=== PATIENT | male | born 1975 | race Caucasian/White ===

== ENCOUNTER 2018-07-19 08:39 | Emergency (ER) | payer MEDICAID, SELFPAY ==
[2018-07-19 08:47] VITALS: BP 135/83; PULSE 54; RESP 20; TEMP 36.8; O2SAT 96
--- NOTE | 2018-07-19 09:15 | ED.GENADUL_ITS ---
Discharge Plan Disposition Patient Disposition: HOME Condition: Stable Discharge Details Chief Complaint: Nk/Back Pain Clinical Impression: Lumbar strain Primary Care Provider: NONE,NONE ED Provider: Joss Michel Home Meds and New Rx's Prescriptions: New cyclobenzaprine 10 mg tablet 10 mg PO TID PRN (Reason: muscle spasm) Qty: 14 RF: 0 ibuprofen [IBU] 600 mg tablet 600 mg PO QID PRN (Reason: pain) Qty: 14 RF: 0 acetaminophen 500 mg capsule 500 mg PO Q6H PRN (Reason: pain) Qty: 14 RF: 0 Continue methadone 10 MG/ML concentrate 70 mg PO DAILY RF: 0 Discharge Instructions Instructions: Low Back Strain (ED) Additional Instructions: Please do not take any further ibuprofen until after 5 PM this evening due to injection he received in the emergency department. After that point you may take acetaminophen and ibuprofen together every 6 hours and to use the Flexeril/ cyclobenzaprine every 8 hours as needed for muscle spasms. While on the muscle relaxant please cautious with any driving or operating heavy machinery. Return immediately to the emergency department for any new or significant worsening of symptoms otherwise we will attempt to assist you and establishment of a primary care provider. Stand Alone Forms: Work Release Referrals: Primary Care Provider [Outside] Medical Decision Making Patient presenting to the emergency department for complaint of low back pain mainly on the right side. 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 He states it is fairly constant but has waves of more intensity. He states that movement worsens his discomfort. 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 He denies any IV drug use, fever chills, saddle anesthesia, changes in bowel or bladder function. Physical exam is positive for lower lumbar tenderness and some soft tissue and buttock tenderness otherwise benign exam with normal neurological function and reflexes. Given that back pain was exacerbated by manual labor any strenuous situation, and no obvious trauma, I do not feel that any radiological imaging is needed. Patient given IM ketorolac, acetaminophen, lidocaine patch. Patient prescribed Flexeril for home use along with ibuprofen. Patient states that he does not have a primary care provider so he was placed on care management list to help arrange primary care to follow-up with as needed in 2-4 weeks if not improved. HPI General Mode of arrival: ambulatory . Date/Time Provider Initiated Documentation: 07/19/18 09:03 . Limitations to Documentation: no limitations . Information obtained by: patient and RN notes reviewed . History of Present Illness 42 year old M presents to the emergency department with the chief complaint of back pain, described as moderate, with intensity rated at 7. Quality is described as aching and sharp, and is localized to the back. Patient started experiencing this day(s) (3) and it has been constant. No relieving factors improve symptom(s), Movement worsens symptoms . Patient notes no other symptoms.. Patient did receive the following treatments prior to arrival, NSAID Related Data Home Medications Medication Instructions Recorded Confirmed methadone 70 mg PO DAILY 08/20/17 07/19/18 acetaminophen 500 mg PO Q6H PRN #14 cap 07/19/18 cyclobenzaprine 10 mg PO TID PRN #14 tab 07/19/18 ibuprofen [IBU] 600 mg PO QID PRN #14 tab 07/19/18 Previous Rx's Medication Instructions Recorded acetaminophen 500 mg PO Q6H PRN #14 cap 07/19/18 cyclobenzaprine 10 mg PO TID PRN #14 tab 07/19/18 ibuprofen [IBU] 600 mg PO QID PRN #14 tab 07/19/18 Allergies Allergy/AdvReac Type Severity Reaction Status Date / Time No Known Allergies Allergy Unverified 07/19/18 08:50 General Stated Complaint: Nk/Back Pain DON: 3 Review of Systems Constitutional Denies chills and Denies fever(s) Cardiovascular Denies chest pain and Denies dyspnea on exertion Respiratory Denies dyspnea on exertion Gastrointestinal Denies abdominal pain, Denies change in bowel habits and Denies diarrhea Genitourinary Denies difficulty urinating and Denies urinary incontinence Musculoskeletal Reports as per HPI and Reports back pain Neurologic Denies sensory deficit PFSH Social History Smoking/Tobacco Use Status: Current every day Exam Const General: cooperative and no acute distress Orientation: alert, awake and oriented x3 Neck Neck: normal visual inspection and full ROM Resp Effort & Inspection: normal respiratory effort Auscultation: clear to auscultation bilaterally Cardio Rate: regular rate Rhythm: regular rhythm Back/Spine/Pelvis Thoracic/Lumbar Spine: pain with thoraco-lumbar ROM, thoraco-lumbar ROM limited , lumbar spinal tenderness and No straight leg raise positive Pelvis: no pain with anterior-posterior compression, no pain with lateral compression, buttock tenderness on the right and sciatic notch tenderness on the right Neuro General: alert, awake and oriented x3 DTR's: Rt Patellar: 2+, Lt Patellar: 2+, Rt Ankle: 2+ and Lt Ankle: 2+ Extrem General: full ROM and normal capillary refill Course Vital Signs Temperature 36.8 C 07/19/18 08:47 Pulse 54 L 07/19/18 08:47 Respiratory Rate 20 07/19/18 08:47 Blood Pressure 135/83 07/19/18 08:47 Pulse Oximetry 96 07/19/18 08:47 Temperature 36.8 C 07/19/18 08:47 Temperature Source Temporal Artery Scan 07/19/18 08:47 Pulse 54 L 07/19/18 08:47 Respiratory Rate 20 07/19/18 08:47 Respiratory Effort Non-Labored 07/19/18 08:47 Blood Pressure 135/83 07/19/18 08:47 Pulse Oximetry 96 07/19/18 08:47 Oxygen Delivery Method Room Air 07/19/18 08:47 Oxygen Flow Rate 0 07/19/18 08:47 Pain Level 7 07/19/18 08:50
[2018-07-19] MEDS: Acetaminophen 500 MG TAB 1000 MG PO (09:30)
[2018-07-19] MEDS: Lidocaine 5% Patch 1 PATCH TP (09:30)
[2018-07-19] MEDS: Ketorolac 60 MG/2 ML VIAL IM (09:30)
[2018-07-19 09:46] VITALS: BP 135/83; PULSE 54; RESP 20; TEMP 36.8; O2SAT 96
== END 2018-07-19 09:39 | disposition home or self-care (01) ==
PROVIDERS: Emergency Provider Nurse Practitioner Family
DX: S39.012A Strain of muscle, fascia and tendon of lower back, initial encounter (principal); X50.0XXA Overexertion from strenuous movement or load, initial encounter
CPT/HCPCS: 96372; 99284; J1885

== ENCOUNTER 2018-09-20 16:34 | Inpatient (IN) | payer MEDICAID, SELFPAY ==
[2018-09-20] VITALS (96 sets, daily range): BP systolic 79–196; BP diastolic 40–155; PULSE 49–120; RESP 0–33; TEMP 36–36.7; O2SAT 91–100
--- NOTE | 2018-09-20 17:31 | DI.RAD_ITS ---
SYMPTOMS/DIAGNOSIS: S/P INTUBATION PORTABLE AP CHEST: No priors. The heart size and pulmonary vasculature are within normal limits. The lungs are clear and well expanded. No effusions or pneumothoraces are identified. The bones are intact. There is an endotracheal tube. The tip is 3 cm above the sunita. IMPRESSION: 1. No acute pulmonary process. 2. Well positioned endotracheal tube.
--- NOTE | 2018-09-20 17:33 | DI.CT_ITS ---
SYMPTOMS/DIAGNOSIS: ALTERED CT BRAIN: Noncontrast examination was performed. There is a normal dahl/white matter differentiation. No acute infarct, hemorrhage, midline shift or mass effect is identified. The ventricles are intact. The basilar cisterns are patent. There is mild mucosal thickening in the maxillary sinuses and the ethmoid air cells. No fluid levels are seen. The mastoid air cells are well pneumatized. The calvarium is intact. IMPRESSION: No acute intracranial process.
[2018-09-20 17:54] LABS: BE (Venous) 3.4 mmol/L (-3-3); HCO3 (Venous) 29 mmol/L (22-28); O2 Sat (Venous) 69 % (70-80); TCO2 (Venous) 26 mmol/L (22-29); pCO2 (Venous) 54 mm/Hg (34-47); pH (Venous) 7.34 (7.32-7.43); pO2 (Venous) 38 mm/Hg (28-44)
[2018-09-20 17:58] LABS: Bilirubin Negative (Negative); Blood Negative (Negative); Clarity Clear; Glucose Negative (Negative); Ketones Negative (Negative); Leukocyte Esterase Negative (Negative); Nitrite Negative (Negative); Urobilinogen 0.2 EU/dL (Up TO 0.2)
[2018-09-20 18:01] LABS: Abs Immature Grans 0.02 k/cumm (0.0-0.09); Absolute Basophil Count 0.03 k/cumm (0.0-0.2); Absolute Eosinophil Count 0.04 k/cumm (0.0-0.7); Absolute Monocyte Count 0.47 k/cumm (0.11-0.7); Absolute Neutrophil Count 8.29 k/cumm (1.2-6.7); Basophils % 0.2; Eosinophils % 0.3; HCT 42.1 % (40.0-50.0); HGB 15.1 g/dL (13.5-17.5); Immature Grans % 0.2; Lymphocytes % 30.3; Mean Corp. HGB Concentration 35.9 g/dL (32.0-36.0); Mean Corpuscular Hemoglobin 34.3 pg (27.0-33.0); Mean Corpuscular Volume 95.7 fL (80-95); Mean Platelet Volume 9.1 fL (8.0-11.0); Monocytes % 3.7; Neutrophils % 65.3; Platelet Count 254 x1000/uL (130-400); RBC Distribution Width 12.5 % (11.8-14.1); White Blood Cell Count 12.69 k/cumm (4.4-10.8)
[2018-09-20 18:02] LABS: Absolute Lymphocyte Count 3.85 k/cumm (1.2-3.4)
--- NOTE | 2018-09-20 18:05 | DI.VRAD_ITS ---
EXAM: XR Chest, 1 View EXAM DATE/TIME: 09/20/2018 5:32 PM CLINICAL HISTORY: 42 years old, male; Signs and symptoms; Other: S/P intubation TECHNIQUE: XR of the chest, 1 view. COMPARISON: No relevant prior studies available. FINDINGS: Tubes, catheters and devices: Endotracheal tube tip terminates approximately 3 cm from the sunita. Lungs: Unremarkable. No consolidation. Pleural space: Unremarkable. No pleural effusion. No pneumothorax. Heart/Mediastinum: Unremarkable. No cardiomegaly. Bones/joints: Unremarkable. IMPRESSION: 1. Endotracheal tube appears well-positioned. 2. No acute finding. Dictated and Authenticated by: Hamlet Bishop MD. Ordering:AARTI Lynch MD
[2018-09-20 18:10] LABS: INR 0.9 (0.9-1.1); Prothrombin Time 9.3 sec (9.3-11.0)
[2018-09-20] MEDS: Midazolam 2 MG/2 ML VIAL 5 MG IVP (18:15)
[2018-09-20] MEDS: PROPOFOL 1,000 MG/100 ML BTL 7.7 MG (18:21)
--- NOTE | 2018-09-20 18:30 | DI.VRAD_ITS ---
EXAM: CT Head Without Contrast EXAM DATE/TIME: 09/20/2018 5:34 PM CLINICAL HISTORY: 42 years old, male; Signs and symptoms; Other: Altered TECHNIQUE: Axial computed tomography images of the head/brain without contrast. All CT scans at this facility use at least one of these dose optimization techniques: automated exposure control; mA and/or kV adjustment per patient size (includes targeted exams where dose is matched to clinical indication); or iterative reconstruction. Coronal and sagittal reformatted images were created and reviewed. COMPARISON: No relevant prior studies available. FINDINGS: Brain: Normal. No hemorrhage. No significant white matter disease. No edema. Ventricles: Normal. No ventriculomegaly. Bones/joints: Normal. No acute fracture. Sinuses: Minimal mucosal thickening low ethmoid and maxillary sinuses. Remaining paranasal sinuses are clear. Mastoid air cells: Normal as visualized. No mastoid effusion. Soft tissues: Normal. IMPRESSION: No acute intracranial findings. Dictated and Authenticated by: Hamlet Bishop MD. Ordering:AARTI Lynch MD
[2018-09-20 18:31] LABS: ALT 21 U/L (12-78); AST 24 U/L (15-37); Alkaline Phosphatase 80 U/L (46-116); Anion Gap 11.2 mmol/L (3-11); BUN 14 mg/dL (7-18); Bilirubin, Total 0.2 mg/dL (0.2-1.0); CO2 29.8 mmol/L (21.0-32.0); CREATININE 1.13 mg/dL (0.70-1.30); Calcium 9.1 mg/dL (8.5-10.1); Chloride 100 mmol/L (98-107); ETHANOL BLOOD 236.1 mg/dL (<3); Glucose 80 mg/dL (70-100); Potassium 3.6 mmol/L (3.5-5.1); Sodium 141 mmol/L (136-145); TSH (W/Ref FT4) 1.96 uIU/mL (0.358-3.74); Total Protein 8.3 g/dL (6.4-8.2)
[2018-09-20 18:37] LABS: *AMPHETAMINES SCREEN URINE Negative (Negative); *BARBITURATES SCREEN URINE Negative (Negative); *BENZODIAZEPINES SCREEN URINE Negative (Negative); Cannabinoids THC POSITIVE (Negative); Cocaine Screen,Urine Negative (Negative); METHADONE URINE SCREEN POSITIVE (Negative); OPIATES URINE SCREEN POSITIVE (Negative)
[2018-09-20 18:40] LABS: Tricyclic Antidepressants Negative (Negative)
[2018-09-20 18:52] LABS: Salicylate 8.1 mg/dL (2.8-20.0)
[2018-09-20 18:53] LABS: Acetaminophen < 2 ug/mL (10-30)
[2018-09-20] MEDS: PROPOFOL 1,000 MG/100 ML BTL 3.84 MG IVPB (19:00)
[2018-09-20] MEDS: Ketamine 500 MG/10 ML VIAL 100 MG IVP (19:00)
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
[2018-09-20] MEDS: Normal Saline 1,000 ML 1000 ML IV (19:21)
[2018-09-20] MEDS: MIDAZOLAM 50 MG in Normal Saline 90 ML IV (19:21)
--- NOTE | 2018-09-20 19:27 | NUR.NOTE ---
Nursing Note: 1815 pt given versed 5 mg iv per doctor rachel verbal order after iv started
--- NOTE | 2018-09-20 19:29 | HPE_ITS ---
Date of service: 09/20/18 Time of Service: 19:18 Assessment and Plan (1) OD (overdose of drug): Current visit: Yes Status: Acute Presumed drug overdose although it should be noted there was no actual witness to an ingestion. Will maintain on ventilator for airway protection overnight. Otherwise will maintain on IV fluids and telemetry and reassess status in the morning History of Present Illness Chief Complaint: drug OD Narrative: Patient is a 42-year-old male with history of drug abuse on methadone. His brother reports that the patient went to the [facility] today and came home with a plastic bottle full of a variety of medications he told his brother that he found this on the floor. At any rate the brother left to do an errand and when he came home he found the patient unresponsive with a variety of pills spilled about him and several shallow lacerations on his torso. He was brought to the emergency room where he was variably agitated or unresponsive and intubated for airway protection. He is admitted for further management Past medical history: Drug abuse Allergies none Medications methadone 70 daily Physical exam: Most recent recorded blood pressure 162/117, at the time of my exam blood pressure 126/70. Pulse 85 temp 36.7 respirations on ventilator at 16. HEENT there are no signs of head trauma, pupils are pinpoint. Supple lungs show diffuse rhonchi heart is regular rate and rhythm, sounds obscured by respirations. Abdomen is positive bowel sounds soft and nontender extremities without edema there are superficial lacerations on the order of 3-4cm on the left upper extremity Laboratory: White count is 12.6 hematocrit 42 platelet 254 sodium 141 potassium 3.6 chloride 100 bicarb 29 BUN 14 creatinine 1.1 glucose 80 calcium 9.1 urine drug screen positive for opiates and methadone and THC. Alcohol level 236. EKG within normal limits chest x-ray is clear and shows endotracheal tube in place [facility] Social History Smoking/Tobacco Use Status: Current every day Meds Home Medications Medication Instructions Recorded Confirmed Type methadone 70 mg PO DAILY 08/20/17 07/19/18 History acetaminophen 500 mg PO Q6H PRN #14 cap 07/19/18 Rx cyclobenzaprine 10 mg PO TID PRN #14 tab 07/19/18 Rx ibuprofen [IBU] 600 mg PO QID PRN #14 tab 07/19/18 Rx Allergies Allergy/AdvReac Type Severity Reaction Status Date / Time No Known Allergies Allergy Unverified 07/19/18 08:50 Results Labs : 09/20/18 17:35 09/20/18 17:35 Laboratory Results - last 24 hr 09/20/18 09/20/18 09/20/18 17:35 17:35 17:35 WBC 12.69 H RBC 4.40 L Hgb 15.1 Hct 42.1 MCV 95.7 H MCH 34.3 H MCHC 35.9 RDW 12.5 Plt Count 254 MPV 9.1 Immature Gran % 0.2 Neutrophils % 65.3 Lymphocytes % 30.3 Monocytes % 3.7 Eosinophils % 0.3 Basophils % 0.2 Absolute Neutrophils 8.29 H Absolute Lymphocytes 3.85 H Absolute Monocytes 0.47 Absolute Eosinophils 0.04 Absolute Basophils 0.03 PT INR APTT VBG pH VBG pCO2 VBG pO2 VBG HCO3 VBG Total CO2 VBG O2 Saturation VBG Base Excess Sodium 141 Potassium 3.6 Chloride 100 Carbon Dioxide 29.8 Anion Gap 11.2 H BUN 14 Creatinine 1.13 Estimated GFR/1.73 m2 >= 60.00 Glucose 80 Calcium 9.1 Total Bilirubin 0.2 AST 24 ALT 21 Alkaline Phosphatase 80 Total Protein 8.3 H Albumin 4.0 TSH 1.96 Urine Color Urine Clarity Urine pH Ur Specific [place] Urine Protein Urine Ketones Urine Blood Urine Nitrite Urine Bilirubin Urine Urobilinogen Ur Leukocyte Esterase Urine Glucose Salicylates 8.1 Urine Opiates Screen Urine Methadone Screen Acetaminophen < 2 L Ur Barbiturates Screen Ur Tricyclics Screen Ur Amphetamines Screen U Benzodiazepines Scrn Urine Cocaine Screen Ur THC Screen Ethyl Alcohol 236.1 09/20/18 09/20/18 09/20/18 17:35 17:35 17:35 WBC RBC Hgb Hct MCV MCH MCHC RDW Plt Count MPV Immature Gran % Neutrophils % Lymphocytes % Monocytes % Eosinophils % Basophils % Absolute Neutrophils Absolute Lymphocytes Absolute Monocytes Absolute Eosinophils Absolute Basophils PT 9.3 INR 0.9 APTT 25.0 VBG pH 7.34 VBG pCO2 54 H VBG pO2 38 VBG HCO3 29 H VBG Total CO2 26 VBG O2 Saturation 69 L VBG Base Excess 3.4 H Sodium Potassium Chloride Carbon Dioxide Anion Gap BUN Creatinine Estimated GFR/1.73 m2 Glucose Calcium Total Bilirubin AST ALT Alkaline Phosphatase Total Protein Albumin TSH Urine Color Urine Clarity Urine pH Ur Specific [place] Urine Protein Urine Ketones Urine Blood Urine Nitrite Urine Bilirubin Urine Urobilinogen Ur Leukocyte Esterase Urine Glucose Salicylates Urine Opiates Screen Positive Urine Methadone Screen Positive Acetaminophen Ur Barbiturates Screen Negative Ur Tricyclics Screen Negative Ur Amphetamines Screen Negative U Benzodiazepines Scrn Negative Urine Cocaine Screen Negative Ur THC Screen Positive Ethyl Alcohol 09/20/18 17:35 WBC RBC Hgb Hct MCV MCH MCHC RDW Plt Count MPV Immature Gran % Neutrophils % Lymphocytes % Monocytes % Eosinophils % Basophils % Absolute Neutrophils Absolute Lymphocytes Absolute Monocytes Absolute Eosinophils Absolute Basophils PT INR APTT VBG pH VBG pCO2 VBG pO2 VBG HCO3 VBG Total CO2 VBG O2 Saturation VBG Base Excess Sodium Potassium Chloride Carbon Dioxide Anion Gap BUN Creatinine Estimated GFR/1.73 m2 Glucose Calcium Total Bilirubin AST ALT Alkaline Phosphatase Total Protein Albumin TSH Urine Color Yellow Urine Clarity Clear Urine pH 7.0 Ur Specific [place] 1.010 Urine Protein Negative Urine Ketones Negative Urine Blood Negative Urine Nitrite Negative Urine Bilirubin Negative Urine Urobilinogen 0.2 Ur Leukocyte Esterase Negative Urine Glucose Negative Salicylates Urine Opiates Screen Urine Methadone Screen Acetaminophen Ur Barbiturates Screen Ur Tricyclics Screen Ur Amphetamines Screen U Benzodiazepines Scrn Urine Cocaine Screen Ur THC Screen Ethyl Alcohol Last Vital Signs Temp 36.7 C 09/20/18 16:35 Pulse 85 09/20/18 17:59 Resp 16 09/20/18 17:59 BP 162/117 H 09/20/18 17:59 Pulse Ox 100 09/20/18 17:45
[2018-09-20 19:36] LABS: HCO3 21 mmol/L (22-28); pCO2 44 mmHg (34-47); pH 7.29 (7.35-7.45); pO2 111 mmHg (83-108); sO2 97 % (94-98); tCO2 19 mmol/L (22-29)
--- NOTE | 2018-09-20 20:11 | NUR.NOTE ---
Nursing Note: patient 4 point restraints removed at 191 when arrived as patient was close to full sedation after ketamine. replaced to soft bilateral wrist restraints for tube placement as patient sedation is now RASS -2 with propofol and versed. --Reginald STEINER. 2011.
--- NOTE | 2018-09-20 22:45 | ED.GENADUL_ITS ---
Discharge Plan Disposition Patient Disposition: [facility] INPATIENT Condition: Stable Discharge Details Chief Complaint: OD/Poison Clinical Impression: OD (overdose of drug), ETOH abuse, Suicide attempt, Methadone use, Acute alteration in mental status, Combative behavior, Respiratory failure, Injury, self-inflicted Reason For Visit: DRUG OD Admit Date/Time: 09/20/18 19:30 Admit Provider: Sergey Hernandez Attending Provider: Sergey Hernandez Primary Care Provider: Radha Villalpando ED Provider: Syed Fallon Discharge Data Discharge Date/Time-TO BE ENTERED AT DEPARTURE: 09/20/18 21:05 Medical Decision Making This is a 42-year-old Montene[place] man who presents for overdose of unknown substances. Patient took an unknown amount of unknown pills. He was found face down at home but arousable. He was brought here by family. His mental status alternates between combative, assaulting staff, and trying to run out of the bed in the room, followed by total obtundation with notable apnea. He has 3 superficial abrasions that are self-inflicted. He has been complaining of notable depression over the last few weeks, and family is concerned that this was a malicious attempt of self-harm. We initially tried to calm the patient wi th family, this was unsuccessful. We did place the patient in four-point restraints for patient safety over he continued to flail about, followed by having prolonged episodes of apnea in between. We are unable to get an IV secondary to the patient's flailing. With the patient's continued apnea, danger to self and others, and severe altered mental status and need for IV access for draw for toxic evaluation, as well as need for CT imaging of his head to rule out acute process we did elect to intubate the patient emergently. Patient tolerated intubation well with no complications. Medications were given IM. After this an IV was placed. Laboratory workup has returned there is no significant abnormality. He does have an elevated white count, ABG demonstrates a mild metabolic acidosis, no anion gap, creatinine and electrolytes are within normal limits. No transaminitis. Normal TSH. Urine drug screen is positive for THC, as well as methadone and his opiates. Ethanol alcohol is elevated at 236. CT scan of the head is negative for acute process. Chest x-ray demonstrates a well-placed endotracheal tube. Patient's EKG demonstrates no evidence of QT prolongation, QRS prolongation or other abnormality. I feel the patient's symptoms most likely secondary to a combination of sedative hypnotic ingestion, alcohol use, and potentially opiate component. With no signs or symptoms suggestive of serotonin syndrome, hyperthermic malignant syndrome, or neuroleptic malignant syndrome. The patient is hemodynamically stable at this time on propofol and Versed. I discussed the case with Dr. Hernandez, he agrees with assessment and plan. The patient will be admitted to the ICU for further management. I have extensively reviewed the treatment plan with the patient. I have addressed all patient concerns at this time. I have also discussed the plan with the admitting physician and they agree with the current assessment and plan and have agreed to assume responsibility for the patient. All parties demonstrate verbal understanding and agreement with our assessment and plan at this time. Upon my evaluation, this patient had a high probability of imminent or life- threatening deterioration, which required my direct attention, intervention, and personal management. I have personally provided 45 minutes of critical care time exclusive of time spent on separately billable procedures. Time includes review of laboratory data, radiology results, discussion with consultants, and monitoring for potential decompensation. Interventions were performed as documented above. Procedure: Endotracheal Intubation Indication: Respiratory Distress A time-out was completed verifying correct patient, procedure, site, positioning, and special equipment if applicable. The patient was placed in a flat position. Sedation was obtained using Etomidate 20mg and paralysis was obtained using Rocuronium 100mg. The patient was easily ventilated using an ambu bag. The [employer] was used and inserted into the oropharynx at which time there was a Grade 1 view of the vocal cords. A 7.5-anguillan endotracheal tube was inserted and visualized going through the vocal cords. The stylette was removed. Colorimetric change was visualized on the CO2 meter. Breath sounds were heard in both lung haney equally. The endotracheal tube was placed at 23 cm, measured at the teeth. A chest x-ray was ordered to assess for pneumothorax and verify endotrachealtube placement. No pneumothorax was seen and tube was in good position. The patient tolerated the procedure well and there were no complications. EKG 16: 48 Rate 65, intervals normal, sinus rhythm, no significant ST elevations or depressions, no T wave inversions, small Q wave in lead III. No other abnormalities. COMPARISON: No relevant prior studies available. FINDINGS: Brain: Normal. No hemorrhage. No significant white matter disease. No edema. Ventricles: Normal. No ventriculomegaly. Bones/joints: Normal. No acute fracture. Sinuses: Minimal mucosal thickening low ethmoid and maxillary sinuses. Remaining paranasal sinuses are clear. Mastoid air cells: Normal as visualized. No mastoid effusion. Soft tissues: Normal. IMPRESSION: No acute intracranial findings. Dictated and Authenticated by: Hamlet Bishop MD. HPI General Date/Time Provider Initiated Documentation: 09/20/18 16:42 . HPI Narrative: This is a 42-year-old Montene[place] man with a past medical history of methadone use, hepatitis C, and depression who presents today for evaluation of overdose. Family and friends were at bedside state that over the last few weeks he has been notably depressed, felt like the world was caving in around him, and had been making comments about ending things. Today he was found by family to be face down on the ground with some random pills next to him. There was an empty black pill bottle, which was not 1 of his regular prescriptions. Patient was slightly arousable with vigorous stimulation, however his mental status was altered. He was brought into the ER for further evaluation. Here in the emergency department the patient had oscillate between fiery and combative to totally obtunded and apneic. Patient has no complaints. He does demonstrate superficial lacerations over his skin, he is unable to answer any of our questions at this time. No other modifying factors. No other known history. Related Data Home Medications Medication Instructions Recorded Confirmed methadone 70 mg PO DAILY 08/20/17 07/19/18 acetaminophen 500 mg PO Q6H PRN #14 cap 07/19/18 cyclobenzaprine 10 mg PO TID PRN #14 tab 07/19/18 ibuprofen [IBU] 600 mg PO QID PRN #14 tab 07/19/18 Previous Rx's Medication Instructions Recorded acetaminophen 500 mg PO Q6H PRN #14 cap 07/19/18 cyclobenzaprine 10 mg PO TID PRN #14 tab 07/19/18 ibuprofen [IBU] 600 mg PO QID PRN #14 tab 07/19/18 Allergies Allergy/AdvReac Type Severity Reaction Status Date / Time No Known Allergies Allergy Unverified 07/19/18 08:50 General Stated Complaint: OD/Poison DON: 1 Review of Systems Review of Systems Unobtainable due to mental condition [facility] Social History Smoking/Tobacco Use Status: Current every day Exam Narrative Exam Narrative: 1.Const: Well-nourished, Well-developed, appearing stated age 2.Eyes: Pupils are roughly 3-4 mm, restricted, slightly react, no conjunctival injection, and symmetrical lids. 3.ENT: Atraumatic external nose and ears. Moist MM. Neck: Symmetric, trachea midline, No thyromegaly. 4.CVS: +S1/S2, No murmurs or gallops. Peripheral pulses 2+ and equal in all extremities. Brisk capillary refill in all extremities. 5.RESP: Unlabored respiratory effort. Clear to auscultation bilaterally. No wheezes rales or rhonchi 6.GI: Soft, Nontender/Nondistended, No hepatosplenomegaly. No guarding or rebound. 7.MSK: Normocephalic/Atraumatic, Extremities w/o deformity or ttp No cyanosis or clubbing, Normal movement of all extremities. No clonus, no lead pipe rigidity, no hyperreflexia. 8.Skin: Warm, Dry. 3 superficial abrasions are present, one on his left anterior chest, one on his left shoulder, and one on his left arm. All are linear, superficial, with no evidence of deep tissue involvement. The superficial abrasion is roughly 6 cm in length. 9.Neuro: civil rights representative II-XII grossly intact. Sensation grossly intact, when the patient is awake and alert he is actively looking around in a panic-like fashion, moving all extremities, showing no focal deficits. No evidence of clonus, hyperreflexia, or other neurologic abnormality. When the patient does settle down, he remains arousable with vigorous stimulation however he has total episodes of apnea, with a drop in his oxygenation to the 80s. 10.Psych: Notably altered, unable to answer any questions. When he is mentally active he is flailing about, difficult to control, swinging wildly at nursing staff and family. Multiple attempts are noted of him slamming into the male nursing staff on initial arrival, trying to run out of the room, throwing and moving things about it a very violent and dangerous fashion. Course Vital Signs Temperature 36.7 C 09/20/18 16:35 Temperature 36.7 C 09/20/18 16:35 Temperature Source Skin 09/20/18 16:35 Pulse 51 L 09/20/18 20:50 Pulse 50 L 09/20/18 20:51 Respiratory Rate 14 09/20/18 22:03 Blood Pressure 88/51 L 09/20/18 20:50 Blood Pressure Mean 59 09/20/18 20:50 Pulse Oximetry 100 09/20/18 22:03 Respiratory End-tidal CO2 15 09/20/18 22:03 Fraction of Inspired Oxygen (FIO2) 21 09/20/18 22:03 Lab/Test Results Lab/Test Results: Laboratory Tests Range/Units 09/20/18 09/20/18 09/20/18 17:25 17:35 17:35 WBC (4.4-10.8) k/cumm RBC (4.50-6.00) m/cumm Hgb (13.5-17.5) g/dL Hct (40.0-50.0) % MCV (80-95) fL MCH (27.0-33.0) pg MCHC (32.0-36.0) g/dL RDW (11.8-14.1) % Plt Count (130-400) x1000/uL MPV (8.0-11.0) fL Immature Gran % Neutrophils % Lymphocytes % Monocytes % Eosinophils % Basophils % Absolute Neutrophils (1.2-6.7) k/cumm Absolute Lymphocytes (1.2-3.4) k/cumm Absolute Monocytes (0.11-0.7) k/cumm Absolute Eosinophils (0.0-0.7) k/cumm Absolute Basophils (0.0-0.2) k/cumm PT (9.3-11.0) sec INR (0.9-1.1) APTT (21.0-31.4) sec pCO2 (34-47) mmHg 44 pO2 (83-108) mmHg 111 H O2 Saturation (94-98) % 97 ABG pH (7.35-7.45) 7.29 L ABG HCO3 (22-28) mmol/L 21 L ABG Total CO2 (22-29) mmol/L 19 L ABG Base Excess (-3-3) mmol/L < -4.0 L VBG pH (7.32-7.43) VBG pCO2 (34-47) mm/Hg VBG pO2 (28-44) mm/Hg VBG HCO3 (22-28) mmol/L VBG Total CO2 (22-29) mmol/L VBG O2 Saturation (70-80) % VBG Base Excess (-3-3) mmol/L Sodium (136-145) mmol/L 141 Potassium (3.5-5.1) mmol/L 3.6 Chloride (98-107) mmol/L 100 Carbon Dioxide (21.0-32.0) mmol/L 29.8 Anion Gap (3-11) mmol/L 11.2 H BUN (7-18) mg/dL 14 Creatinine (0.70-1.30) mg/dL 1.13 Estimated GFR/1.73 m2 (mL/min/1.73m2) >= 60.00 Glucose (70-100) mg/dL 80 Calcium (8.5-10.1) mg/dL 9.1 Total Bilirubin (0.2-1.0) mg/dL 0.2 AST (15-37) U/L 24 ALT (12-78) U/L 21 Alkaline Phosphatase (46-116) U/L 80 Total Protein (6.4-8.2) g/dL 8.3 H Albumin (3.4-5.0) g/dL 4.0 TSH (0.358-3.74) uIU/mL 1.96 Urine Color (Yellow) Urine Clarity Urine pH (5-8) Ur Specific [place] (1.005-1.025) Urine Protein (Negative) mg/dL Urine Ketones (Negative) mg/dL Urine Blood (Negative) Urine Nitrite (Negative) Urine Bilirubin (Negative) Urine Urobilinogen (Up TO 0.2) EU/dL Ur Leukocyte Esterase (Negative) Urine Glucose (Negative) mg/dL Salicylates (2.8-20.0) mg/dL 8.1 Urine Opiates Screen (Negative) Urine Methadone Screen (Negative) Acetaminophen (10-30) ug/mL < 2 L Ur Barbiturates Screen (Negative) Ur Tricyclics Screen (Negative) Ur Amphetamines Screen (Negative) U Benzodiazepines Scrn (Negative) Urine Cocaine Screen (Negative) Ur THC Screen (Negative) Ethyl Alcohol (<3) mg/dL 236.1 Range/Units 09/20/18 09/20/18 09/20/18 17:35 17:35 17:35 WBC (4.4-10.8) k/cumm 12.69 H RBC (4.50-6.00) m/cumm 4.40 L Hgb (13.5-17.5) g/dL 15.1 Hct (40.0-50.0) % 42.1 MCV (80-95) fL 95.7 H MCH (27.0-33.0) pg 34.3 H MCHC (32.0-36.0) g/dL 35.9 RDW (11.8-14.1) % 12.5 Plt Count (130-400) x1000/uL 254 MPV (8.0-11.0) fL 9.1 Immature Gran % 0.2 Neutrophils % 65.3 Lymphocytes % 30.3 Monocytes % 3.7 Eosinophils % 0.3 Basophils % 0.2 Absolute Neutrophils (1.2-6.7) k/cumm 8.29 H Absolute Lymphocytes (1.2-3.4) k/cumm 3.85 H Absolute Monocytes (0.11-0.7) k/cumm 0.47 Absolute Eosinophils (0.0-0.7) k/cumm 0.04 Absolute Basophils (0.0-0.2) k/cumm 0.03 PT (9.3-11.0) sec 9.3 INR (0.9-1.1) 0.9 APTT (21.0-31.4) sec 25.0 pCO2 (34-47) mmHg pO2 (83-108) mmHg O2 Saturation (94-98) % ABG pH (7.35-7.45) ABG HCO3 (22-28) mmol/L ABG Total CO2 (22-29) mmol/L ABG Base Excess (-3-3) mmol/L VBG pH (7.32-7.43) 7.34 VBG pCO2 (34-47) mm/Hg 54 H VBG pO2 (28-44) mm/Hg 38 VBG HCO3 (22-28) mmol/L 29 H VBG Total CO2 (22-29) mmol/L 26 VBG O2 Saturation (70-80) % 69 L VBG Base Excess (-3-3) mmol/L 3.4 H Sodium (136-145) mmol/L Potassium (3.5-5.1) mmol/L Chloride (98-107) mmol/L Carbon Dioxide (21.0-32.0) mmol/L Anion Gap (3-11) mmol/L BUN (7-18) mg/dL Creatinine (0.70-1.30) mg/dL Estimated GFR/1.73 m2 (mL/min/1.73m2) Glucose (70-100) mg/dL Calcium (8.5-10.1) mg/dL Total Bilirubin (0.2-1.0) mg/dL AST (15-37) U/L ALT (12-78) U/L Alkaline Phosphatase (46-116) U/L Total Protein (6.4-8.2) g/dL Albumin (3.4-5.0) g/dL TSH (0.358-3.74) uIU/mL Urine Color (Yellow) Urine Clarity Urine pH (5-8) Ur Specific [place] (1.005-1.025) Urine Protein (Negative) mg/dL Urine Ketones (Negative) mg/dL Urine Blood (Negative) Urine Nitrite (Negative) Urine Bilirubin (Negative) Urine Urobilinogen (Up TO 0.2) EU/dL Ur Leukocyte Esterase (Negative) Urine Glucose (Negative) mg/dL Salicylates (2.8-20.0) mg/dL Urine Opiates Screen (Negative) Urine Methadone Screen (Negative) Acetaminophen (10-30) ug/mL Ur Barbiturates Screen (Negative) Ur Tricyclics Screen (Negative) Ur Amphetamines Screen (Negative) U Benzodiazepines Scrn (Negative) Urine Cocaine Screen (Negative) Ur THC Screen (Negative) Ethyl Alcohol (<3) mg/dL Range/Units 09/20/18 09/20/18 17:35 17:35 WBC (4.4-10.8) k/cumm RBC (4.50-6.00) m/cumm Hgb (13.5-17.5) g/dL Hct (40.0-50.0) % MCV (80-95) fL MCH (27.0-33.0) pg MCHC (32.0-36.0) g/dL RDW (11.8-14.1) % Plt Count (130-400) x1000/uL MPV (8.0-11.0) fL Immature Gran % Neutrophils % Lymphocytes % Monocytes % Eosinophils % Basophils % Absolute Neutrophils (1.2-6.7) k/cumm Absolute Lymphocytes (1.2-3.4) k/cumm Absolute Monocytes (0.11-0.7) k/cumm Absolute Eosinophils (0.0-0.7) k/cumm Absolute Basophils (0.0-0.2) k/cumm PT (9.3-11.0) sec INR (0.9-1.1) APTT (21.0-31.4) sec pCO2 (34-47) mmHg pO2 (83-108) mmHg O2 Saturation (94-98) % ABG pH (7.35-7.45) ABG HCO3 (22-28) mmol/L ABG Total CO2 (22-29) mmol/L ABG Base Excess (-3-3) mmol/L VBG pH (7.32-7.43) VBG pCO2 (34-47) mm/Hg VBG pO2 (28-44) mm/Hg VBG HCO3 (22-28) mmol/L VBG Total CO2 (22-29) mmol/L VBG O2 Saturation (70-80) % VBG Base Excess (-3-3) mmol/L Sodium (136-145) mmol/L Potassium (3.5-5.1) mmol/L Chloride (98-107) mmol/L Carbon Dioxide (21.0-32.0) mmol/L Anion Gap (3-11) mmol/L BUN (7-18) mg/dL Creatinine (0.70-1.30) mg/dL Estimated GFR/1.73 m2 (mL/min/1.73m2) Glucose (70-100) mg/dL Calcium (8.5-10.1) mg/dL Total Bilirubin (0.2-1.0) mg/dL AST (15-37) U/L ALT (12-78) U/L Alkaline Phosphatase (46-116) U/L Total Protein (6.4-8.2) g/dL Albumin (3.4-5.0) g/dL TSH (0.358-3.74) uIU/mL Urine Color (Yellow) Yellow Urine Clarity Clear Urine pH (5-8) 7.0 Ur Specific [place] (1.005-1.025) 1.010 Urine Protein (Negative) mg/dL Negative Urine Ketones (Negative) mg/dL Negative Urine Blood (Negative) Negative Urine Nitrite (Negative) Negative Urine Bilirubin (Negative) Negative Urine Urobilinogen (Up TO 0.2) EU/dL 0.2 Ur Leukocyte Esterase (Negative) Negative Urine Glucose (Negative) mg/dL Negative Salicylates (2.8-20.0) mg/dL Urine Opiates Screen (Negative) Positive Urine Methadone Screen (Negative) Positive Acetaminophen (10-30) ug/mL Ur Barbiturates Screen (Negative) Negative Ur Tricyclics Screen (Negative) Negative Ur Amphetamines Screen (Negative) Negative U Benzodiazepines Scrn (Negative) Negative Urine Cocaine Screen (Negative) Negative Ur THC Screen (Negative) Positive Ethyl Alcohol (<3) mg/dL
[2018-09-20] MEDS: PROPOFOL 1,000 MG/100 ML BTL 19.2 MG IVPB (23:54)
[2018-09-21] VITALS (172 sets, daily range): BP systolic 81–146; BP diastolic 44–99; PULSE 54–87; RESP 0–30; TEMP 36.1–37.8; O2SAT 92–100
[2018-09-21] MEDS: Lactated Ringers 1,000 ML 150 ML IV ×4 (04:00→22:49)
[2018-09-21] MEDS: PROPOFOL 1,000 MG/100 ML BTL 19.2 MG IVPB (06:19)
[2018-09-21] MEDS: MIDAZOLAM 50 MG in Normal Saline 90 ML 7.04 MG IV ×2 (07:03→22:31)
[2018-09-21 08:23] LABS: Abs Immature Grans 0.02 k/cumm (0.0-0.09); Absolute Basophil Count 0.02 k/cumm (0.0-0.2); Absolute Eosinophil Count 0.04 k/cumm (0.0-0.7); Absolute Lymphocyte Count 3.33 k/cumm (1.2-3.4); Absolute Monocyte Count 0.86 k/cumm (0.11-0.7); Basophils % 0.2; Eosinophils % 0.3; Immature Grans % 0.2; Lymphocytes % 27.1; Mean Corp. HGB Concentration 35.1 g/dL (32.0-36.0); Mean Corpuscular Hemoglobin 33.9 pg (27.0-33.0); Mean Corpuscular Volume 96.4 fL (80-95); Mean Platelet Volume 9.3 fL (8.0-11.0); Neutrophils % 65.2; Platelet Count 216 x1000/uL (130-400); RBC 3.84 m/cumm (4.50-6.00); RBC Distribution Width 12.7 % (11.8-14.1)
[2018-09-21 08:25] LABS: Absolute Neutrophil Count 8.02 k/cumm (1.2-6.7)
[2018-09-21 08:29] LABS: Anion Gap 7.8 mmol/L (3-11); BUN 14 mg/dL (7-18); CO2 27.2 mmol/L (21.0-32.0); CREATININE 0.99 mg/dL (0.70-1.30); Calcium 8.1 mg/dL (8.5-10.1); Chloride 106 mmol/L (98-107); Glucose 70 mg/dL (70-100); Magnesium 1.6 mg/dL (1.8-2.4); Potassium 3.8 mmol/L (3.5-5.1); Sodium 141 mmol/L (136-145)
--- NOTE | 2018-09-21 09:05 | PDOC.CMIN ---
- If Service Date Differs Date of service: 09/21/18 Time of Service: 09:05 Care Management Initial Assess REASON FOR HOSPITALIZATION:: Drug OD. PAST MEDICAL HISTORY/PAST SURGICAL HISTORY:: Drug abuse; methadone maintenance through [facility], depression, Hep C. CURRENT FUNCTIONAL STATUS:: Rohit is in the ICU and remains intubated at this time. His brother, Umang(?) is at the bedside and reports that Rohit lives with him in [facility]. Per MD report, Rohit is a 42-year-old [place] man who presented to the ED on 09/20 for an overdose of unknown substances.Rohit was reportedly found face down at home but was arousable. His family brought him to the ED and upon arrival at the hospital his mental status alternated between combative, assaulting staff, and trying to run out of the bed in the room, followed by total obtundation with notable apnea. Rohit has three superficial abrasions that are self-inflicted to his torso. Rohit has a bahena in place at this time. CM phoned [facility] to alert them to Rohit's presence in the ICU. ADVANCE DIRECTIVES:: None on file at [facility]. Has patient been provided with information about the portal?: Yes Did the patient sign up for the portal?: No CODE STATUS:: Full Code INSURANCE COVERAGE / FINANCIAL ISSUES:: Medicaid. PRIMARY CARE PHYSICIAN:: Radha Villalpando. POTENTIAL DISCHARGE NEEDS:: Follow up appointment with PCP, f/u with MH(?), substance abuse tx(?). PATIENT/FAMILY EDUCATION NEEDS:: Discharge education, any limitations, and follow up plan of care. PLAN:: Rohit will discharge when medically ready per MD. CM will continue to offer support to patient and care team regarding discharge planning and disposition.
[2018-09-21] MEDS: PROPOFOL 1,000 MG/100 ML BTL 26.9 MG IVPB ×2 (09:07→12:46)
--- NOTE | 2018-09-21 09:08 | INITIAL_ITS ---
- If Service Date Differs Date of service: 09/21/18 Time of Service: 09:05 Care Management Initial Assess REASON FOR HOSPITALIZATION:: Drug OD. PAST MEDICAL HISTORY/PAST SURGICAL HISTORY:: Drug abuse; methadone maintenance through [facility], depression, Hep C. CURRENT FUNCTIONAL STATUS:: Rohit is in the ICU and remains intubated at this time. His brother, Umang(?) is at the bedside and reports that Rohit lives with him in [facility]. Per MD report, Rohit is a 42-year-old [place]uneian man who presented to the ED on 09/20 for an overdose of unknown substances.Rohit was reportedly found face down at home but was arousable. His family brought him to the ED and upon arrival at the hospital his mental status alternated between combative, assaulting staff, and trying to run out of the bed in the room, followed by total obtundation with notable apnea. Rohit has three superficial abrasions that are self-inflicted to his torso. Rohit has a bahena in place at this time. CM phoned [facility] to alert them to Rohit's presence in the ICU. ADVANCE DIRECTIVES:: None on file at [facility]. Has patient been provided with information about the portal?: Yes Did the patient sign up for the portal?: No CODE STATUS:: Full Code INSURANCE COVERAGE / FINANCIAL ISSUES:: Medicaid. PRIMARY CARE PHYSICIAN:: Radha Villalpando. POTENTIAL DISCHARGE NEEDS:: Follow up appointment with PCP, f/u with MH(?), substance abuse tx(?). PATIENT/FAMILY EDUCATION NEEDS:: Discharge education, any limitations, and follow up plan of care. PLAN:: Rohit will discharge when medically ready per MD. CM will continue to offer support to patient and care team regarding discharge planning and disposition.
--- NOTE | 2018-09-21 09:22 | PHARADMIT ---
Admission Pharmacy Clinical Review UNKNOWN DRUG OVERDOSE, (Intubated) Code Status Full Code Current Weight Wgt- 63.4 kg Renally Cleared and Narrow Therapeutic Index Meds CrCl~ 86 mL/min Meds-OK QTc Value / Action Taken QTc-412 na BP Control, Fever BP- 106/56 Tmax- 37.0C Electrolytes reviewed Na-141 K+3.8 Mag-1.6 DVT Prophylaxis No Intubated Opiate Usage / Scheduled Bowel Regimen Ordered No No Plt/SCr for Heparin / Enoxaparin Plts-216 SCr-0.99 INR for Warfarin na H/H stable, WBC/Bands H&H- 13.0/37.0 WBC- 12.30 Antibiotic appropriateness none Cultures and Sensitivities none Surgical ABX d/c within 24 hr NA DM control / Insulin Dosing BG-70 Heart Failure (Check EF%) (TALITA's, B-Block, Diuretics) none IV to PO Switch No Home Meds Reviewed Yes Home Meds Not Ordered Methadone, Ibuprofen, Flexeril, APAP Comments ETOH-236.1
--- NOTE | 2018-09-21 11:00 | DI.RAD_ITS ---
SYMPTOM/DIAGNOSIS: INTUBATED, DAILY F/U PORTABLE AP CHEST: Comparison is made with 09/20/18. There is an endotracheal tube again noted. The tip is 3 cm. above the sunita. There has been interval placement of a nasogastric tube, its tip is seen in the stomach. The lungs remain clear. No effusions or pneumothoraces are identified. IMPRESSION: No acute pulmonary process. Endotracheal tube and nasogastric tube well positioned.
[2018-09-21] MEDS: MAGNESIUM SULFATE 2 GM/50 ML BAG IVPB (11:49)
[2018-09-21] MEDS: Pantoprazole 40 MG VIAL IVP (12:46)
--- NOTE | 2018-09-21 13:23 | PT.INNT ---
Date of service: 09/21/18 Time of Service: 13:23 PT Notes PHYSICAL THERAPY NOTE 09/21/18 PT Consult received, chart reviewed. Spoke with RN, pt remains sedated on ventilator, unable to participate in therapy evaluation. Nursing performing position changes every 2hrs and ROM. Hold Consult until pt is alert and able to participate in evaluation. Jessy Rodas PT
--- NOTE | 2018-09-21 14:17 | W.NUTCONSULT ---
Date of service: 09/21/18 Time of Service: 14:17 Nutritional Consult ASSESSMENT: Mr. Lin is intubated and thus NPO. Nutrition consult requested for tube feeding recommendations. He is 67 and 63.4 kg/139 lbs. His BMI is 23.3 kg/m2 which is WNL. His estimated energy needs are 1765 kcal/day (REE x 1.2). His estimated protein needs are 63-79 g/day (1.0-1.2g/kg/day). His estimated fluid needs are 1890 ml/day (30 ml/kg/day). NUTRITIONAL DIAGNOSIS: Inability to take oral foods and fluids related to intubation. INTERVENTION: If prolonged NPO status is anticipated (i.e. longer than 5 days) would recommend nutrition support. As Mr. Lin was likely eating a normal diet prior to admission, would recommend Jevity 1.2 zachariah @ a goal rate of 60 ml/hr continuously to provide 1728 kcals, 79 grams of protein and 1146 grams of free water. This feeding also provides 26 grams of fiber per day. Mr. Lin will likely need an additional 750 ml per day of free water to meet his hydration needs, however this regimen will likely meet his macronutrient and micronutrient needs. Would recommend start feeding at 30 ml/hr x 4 hours. If tolerated, increase feeding by 15 ml every four hours until goal rate is met. MONITORING AND EVALUATION: 1. Will monitor for advance of PO and/or initiation of tube feeds. Will monitor tolerance to either. 2. Will evaluate nutrition care plan ongoing and adjust as needed. Time Spent in Nutritional Counseling and Treatment: LOUIS
--- NOTE | 2018-09-21 14:50 | CHAPLAIN ---
Glen remains intubated. I spoke with his brother and a female visitor. Glen's brother spent the night here, on the couch in the waiting room. I suggested he use the couch in the chapel if she spends the night tonight. His brother was pleasant and engaged in a short conversation. He didn't talk much about Glen.
[2018-09-21] MEDS: PROPOFOL 1,000 MG/100 ML BTL 25 MG IVPB (16:30)
[2018-09-21] MEDS: PROPOFOL 1,000 MG/100 ML BTL 26.88 MG IVPB ×2 (19:24→22:48)
--- NOTE | 2018-09-21 19:56 | PGE_ITS ---
Date of Service Date of service: 09/21/18 Time of Service: 13:30 Assessment and Plan (1) OD (overdose of drug): Current visit: Yes Status: Acute Most likely by opiates, intentionally, in a suicide attempt. It will likely safe to attempt to extubate the patient tomorrow. (2) Respiratory failure: Current visit: Yes Status: Acute On Vent. Plan to extubate tomorrow. Daily weaning trials. (3) Suicide attempt: Current visit: Yes Status: Acute Suicide precautions and mental health consult once the patient is awake. (4) Leucocytosis: Current visit: Yes Status: Acute Likely reactive. No evidence of acute infectious process - no role for antibiotics. (5) Hypomagnesemia: Current visit: Yes Status: Acute replete and monitor (6) Discharge planning issues: Current visit: Yes Status: Acute When medically stable, will need transfer to a [facility] facility (7) DVT prophylaxis: Current visit: Yes Status: Acute lovenox Subjective Interval history since last seen: The patient remains intubated, sedated. No acute events. He does wake up when turned. Exam Narrative Exam Narrative: General: Intubated, sedated, not arousable to verbal or painful stimuli HEENT: Eyes closed, when I open them, he does not track. Pupils equal, 3-4 mm in diameter; MMM, ET tube in place Heart: RRR, no m/r/g Lungs: CTAB GI: abdomen soft, nontender Extremities: no e/c/c BLE's Objective Objective Clinical Data: Abnormal lab results 09/21/18 09/21/18 Range/Units 08:06 08:06 WBC 12.30 H (4.4-10.8) k/cumm RBC 3.84 L (4.50-6.00) m/cumm Hgb 13.0 L D (13.5-17.5) g/dL Hct 37.0 L (40.0-50.0) % MCV 96.4 H (80-95) fL MCH 33.9 H (27.0-33.0) pg Absolute Neutrophils 8.02 H (1.2-6.7) k/cumm Absolute Monocytes 0.86 H (0.11-0.7) k/cumm Calcium 8.1 L (8.5-10.1) mg/dL Magnesium 1.6 L (1.8-2.4) mg/dL Vital Signs Temperature 36.1 C L 09/21/18 19:17 Temperature Source Temporal Artery Scan 09/21/18 19:17 Pulse 65 09/21/18 19:17 Pulse 74 09/21/18 18:00 Respiratory Rate 14 09/21/18 19:17 Respiratory Effort 09/21/18 19:17 Respiratory Depth Normal 09/21/18 19:17 Respiratory Pattern Normal 09/21/18 19:17 Blood Pressure 105/59 L 09/21/18 19:17 Blood Pressure Mean 74 09/21/18 19:17 Blood Pressure Position Supine 09/21/18 19:17 Pulse Oximetry 95 09/21/18 19:17 Respiratory End-tidal CO2 32 09/21/18 19:10 Oxygen Delivery Method Mechanical Ventilator 09/21/18 19:17 Oxygen Flow Rate 0 09/21/18 19:17 Fraction of Inspired Oxygen (FIO2) 21 09/21/18 19:10 Pain Level 0 09/21/18 19:17 Intake & Output 09/20/18 09/21/18 09/21/18 23:59 11:59 23:59 Intake Total 1070.203 / 7993.013 3024.079 / 2474.577 1323.498 / 2474.577 Output Total 2475 / 2475 2575 / 3700 1125 / 3700 Balance -1404.797 / -1404.797 -1423.921 / -1225.423 198.498 / -1225.423 Weight 63.5 kg 63.4 kg Intake: IV 1070.203 / 2487.004 2071.079 / 2474.577 1323.498 / 2474.577 Output: Gastric Drainage 700 / 900 200 / 900 Right Nare 700 / 900 200 / 900 Urine 2475 / 2475 1875 / 2800 925 / 2800 Other: Urine Color Yellow Light Lamar Light Lamar Urine Appearance Clear Clear Clear Comment pt is uncircumcised bahena cath in place and draining large amount light lamar urine. Bahena putting out large amounts clear yellow urine Gastric Occult Blood Right Nare Negative Laboratory Results WBC 12.30 k/cumm (4.4-10.8) H 09/21/18 08:06 RBC 3.84 m/cumm (4.50-6.00) L 09/21/18 08:06 Hgb 13.0 g/dL (13.5-17.5) L D 09/21/18 08:06 Hct 37.0 % (40.0-50.0) L 09/21/18 08:06 MCV 96.4 fL (80-95) H 09/21/18 08:06 MCH 33.9 pg (27.0-33.0) H 09/21/18 08:06 MCHC 35.1 g/dL (32.0-36.0) 09/21/18 08:06 RDW 12.7 % (11.8-14.1) 09/21/18 08:06 Plt Count 216 x1000/uL (130-400) 09/21/18 08:06 MPV 9.3 fL (8.0-11.0) 09/21/18 08:06 Immature Gran % 0.2 09/21/18 08:06 Neutrophils % 65.2 09/21/18 08:06 Lymphocytes % 27.1 09/21/18 08:06 Monocytes % 7.0 09/21/18 08:06 Eosinophils % 0.3 09/21/18 08:06 Basophils % 0.2 09/21/18 08:06 Absolute Neutrophils 8.02 k/cumm (1.2-6.7) H 09/21/18 08:06 Absolute Lymphocytes 3.33 k/cumm (1.2-3.4) 09/21/18 08:06 Absolute Monocytes 0.86 k/cumm (0.11-0.7) H 09/21/18 08:06 Absolute Eosinophils 0.04 k/cumm (0.0-0.7) 09/21/18 08:06 Absolute Basophils 0.02 k/cumm (0.0-0.2) 09/21/18 08:06 PT 9.3 sec (9.3-11.0) 09/20/18 17:35 INR 0.9 (0.9-1.1) 09/20/18 17:35 APTT 25.0 sec (21.0-31.4) 09/20/18 17:35 Sample Site 09/20/18 17:25 pCO2 44 mmHg (34-47) 09/20/18 17:25 pO2 111 mmHg (83-108) H 09/20/18 17:25 O2 Saturation 97 % (94-98) 09/20/18 17:25 ABG pH 7.29 (7.35-7.45) L 09/20/18 17:25 ABG HCO3 21 mmol/L (22-28) L 09/20/18 17:25 ABG Total CO2 19 mmol/L (22-29) L 09/20/18 17:25 ABG Base Excess < -4.0 mmol/L (-3-3) L 09/20/18 17:25 VBG pH 7.34 (7.32-7.43) 09/20/18 17:35 VBG pCO2 54 mm/Hg (34-47) H 09/20/18 17:35 VBG pO2 38 mm/Hg (28-44) 09/20/18 17:35 VBG HCO3 29 mmol/L (22-28) H 09/20/18 17:35 VBG Total CO2 26 mmol/L (22-29) 09/20/18 17:35 VBG O2 Saturation 69 % (70-80) L 09/20/18 17:35 VBG Base Excess 3.4 mmol/L (-3-3) H 09/20/18 17:35 Sodium 141 mmol/L (136-145) 09/21/18 08:06 Potassium 3.8 mmol/L (3.5-5.1) 09/21/18 08:06 Chloride 106 mmol/L (98-107) 09/21/18 08:06 Carbon Dioxide 27.2 mmol/L (21.0-32.0) 09/21/18 08:06 Anion Gap 7.8 mmol/L (3-11) 09/21/18 08:06 BUN 14 mg/dL (7-18) 09/21/18 08:06 Creatinine 0.99 mg/dL (0.70-1.30) 09/21/18 08:06 Estimated GFR/1.73 m2 >= 60.00 (mL/min/1.73m2) 09/21/18 08:06 Glucose 70 mg/dL (70-100) 09/21/18 08:06 Calcium 8.1 mg/dL (8.5-10.1) L 09/21/18 08:06 Magnesium 1.6 mg/dL (1.8-2.4) L 09/21/18 08:06 Total Bilirubin 0.2 mg/dL (0.2-1.0) 09/20/18 17:35 AST 24 U/L (15-37) 09/20/18 17:35 ALT 21 U/L (12-78) 09/20/18 17:35 Alkaline Phosphatase 80 U/L (46-116) 09/20/18 17:35 Total Protein 8.3 g/dL (6.4-8.2) H 09/20/18 17:35 Albumin 4.0 g/dL (3.4-5.0) 09/20/18 17:35 TSH 1.96 uIU/mL (0.358-3.74) 09/20/18 17:35 Urine Color Yellow (Yellow) 09/20/18 17:35 Urine Clarity Clear 09/20/18 17:35 Urine pH 7.0 (5-8) 09/20/18 17:35 Ur Specific [place] 1.010 (1.005-1.025) 09/20/18 17:35 Urine Protein Negative mg/dL (Negative) 09/20/18 17:35 Urine Ketones Negative mg/dL (Negative) 09/20/18 17:35 Urine Blood Negative (Negative) 09/20/18 17:35 Urine Nitrite Negative (Negative) 09/20/18 17:35 Urine Bilirubin Negative (Negative) 09/20/18 17:35 Urine Urobilinogen 0.2 EU/dL (Up TO 0.2) 09/20/18 17:35 Ur Leukocyte Esterase Negative (Negative) 09/20/18 17:35 Urine Glucose Negative mg/dL (Negative) 09/20/18 17:35 Salicylates 8.1 mg/dL (2.8-20.0) 09/20/18 17:35 Urine Opiates Screen Positive (Negative) 09/20/18 17:35 Urine Methadone Screen Positive (Negative) 09/20/18 17:35 Acetaminophen < 2 ug/mL (10-30) L 09/20/18 17:35 Ur Barbiturates Screen Negative (Negative) 09/20/18 17:35 Ur Tricyclics Screen Negative (Negative) 09/20/18 17:35 Ur Amphetamines Screen Negative (Negative) 09/20/18 17:35 U Benzodiazepines Scrn Negative (Negative) 09/20/18 17:35 Urine Cocaine Screen Negative (Negative) 09/20/18 17:35 Ur THC Screen Positive (Negative) 09/20/18 17:35 Ethyl Alcohol 236.1 mg/dL (<3) 09/20/18 17:35 CXR: No acute pulmonary process. Endotracheal tube and nasogastric tube well positioned.
[2018-09-22] VITALS (50 sets, daily range): BP systolic 95–138; BP diastolic 54–83; PULSE 58–99; RESP 0–28; TEMP 36.5–37.2; O2SAT 94–105
[2018-09-22] MEDS: PROPOFOL 1,000 MG/100 ML BTL 26.88 MG IVPB ×2 (02:08→05:36)
[2018-09-22] MEDS: Lactated Ringers 1,000 ML 150 ML IV (05:04)
--- NOTE | 2018-09-22 06:39 | DI.VRAD_ITS ---
EXAM: XR Chest, 1 View EXAM DATE/TIME: 09/22/2018 12:00 AM CLINICAL HISTORY: 42 years old, male; Device placement; Ett placement (vent status) TECHNIQUE: XR of the chest, 1 view. COMPARISON: CR XR PORTABLE CHEST AP 09/21/2018 10:50 AM FINDINGS: Tubes, catheters and devices: Nasogastric tube tip is in the stomach. Endotracheal tube tip is 3 cm above the level of the sunita. Lungs: Unremarkable. No consolidation. Pleural space: Unremarkable. No evidence of pneumothorax. Heart/Mediastinum: Unremarkable. Heart size within normal limits for technique. Bones/joints: Unremarkable. IMPRESSION: Endotracheal tube and nasogastric tube in a good position. Dictated and Authenticated by: Andrea Julien MD. Ordering:JAZMYN Stallings MD
[2018-09-22 07:33] LABS: BE 4.1 mmol/L (-3-3); HCO3 28 mmol/L (22-28); pCO2 40 mmHg (34-47); pH 7.46 (7.35-7.45); pO2 67 mmHg (83-108); sO2 94 % (94-98); tCO2 25 mmol/L (22-29)
[2018-09-22 07:36] LABS: FIO2 21 %; Site Right Radial
[2018-09-22 07:54] LABS: Abs Immature Grans 0.02 k/cumm (0.0-0.09); Absolute Basophil Count 0.04 k/cumm (0.0-0.2); Absolute Lymphocyte Count 4.68 k/cumm (1.2-3.4); Absolute Monocyte Count 0.97 k/cumm (0.11-0.7); Absolute Neutrophil Count 6.58 k/cumm (1.2-6.7); Basophils % 0.3; Eosinophils % 0.8; HGB 13.7 g/dL (13.5-17.5); Immature Grans % 0.2; Lymphocytes % 37.8; Mean Corp. HGB Concentration 34.3 g/dL (32.0-36.0); Mean Corpuscular Hemoglobin 33.7 pg (27.0-33.0); Mean Corpuscular Volume 98.3 fL (80-95); Mean Platelet Volume 9.7 fL (8.0-11.0); Monocytes % 7.8; Neutrophils % 53.1; Platelet Count 210 x1000/uL (130-400); RBC 4.07 m/cumm (4.50-6.00); RBC Distribution Width 13.1 % (11.8-14.1); White Blood Cell Count 12.39 k/cumm (4.4-10.8)
[2018-09-22 07:58] LABS: Anion Gap 11.3 mmol/L (3-11); BUN 13 mg/dL (7-18); CO2 27.7 mmol/L (21.0-32.0); CREATININE 1.18 mg/dL (0.70-1.30); Calcium 8.3 mg/dL (8.5-10.1); Chloride 105 mmol/L (98-107); Glucose 68 mg/dL (70-100); Magnesium 1.9 mg/dL (1.8-2.4); Potassium 3.4 mmol/L (3.5-5.1); Sodium 144 mmol/L (136-145)
--- NOTE | 2018-09-22 08:30 | DI.RAD_ITS ---
SYMPTOM/DIAGNOSIS: INTUBATED, DAILY F/U PORTABLE AP CHEST: Comparison is made with 09/21/18. The endotracheal tube is unchanged at the level of the aortic arch. A nasogastric tube again projects in the stomach, unchanged. The lungs are clear. IMPRESSION: No change in position of endotracheal tube and nasogastric tube. No acute abnormality is seen.
[2018-09-22] MEDS: Albuterol/Ipratropium 3 ML UPD VIAL UPD (09:30)
[2018-09-22] MEDS: LORazepam 2 MG/ML VIAL 0.5 MG IVP (09:53)
[2018-09-22] MEDS: Normal Saline Flush 10 ML SYR ×2 (10:12→12:56)
--- NOTE | 2018-09-22 13:07 | PDOC.CMPRO ---
- If Service Date Differs Date of service: 09/22/18 Time of Service: 13:07 Care Management Progress Note S/O: Perez was extubated this morning at 0815 and awakened quickly with no complications. His brother, Cb and sister in law, Radha, are at bedside while respiratory and MD assess the patient. As Perez awakened he became agitated, and per nursing report, attempted to pull out his IVs as MD discussed his remaining at the hospital. Patient was verbally calmed and agreed to further evaluation. Per protocol, [facility] has been called to evaluate the patient for SI/HI prior to consideration for discharge. [facility] Clint arrived for assessment and initially recommended that Perez be discharged to the community and follow up with [facility] in a week for therapeutic support. disagreed with this assessment and voiced her concerns with [facility] and [facility]. Following ongoing discussions, all are in agreement that Perez could discharge the hospital with his family and follow up with [facility] and [facility] for continued maintenance. Clint [facility], was unable to access the [employer]cue system so had hand written his assessment. Assessment will be scanned into the system. A: 42 year old male admitted following drug OD on 09/20/2017. P: Perez will discharge home when medically ready per MD. Anticipate patient will discharge home and follow up with [facility] services and [facility]. Perez will transport via private vehicle with his brother, Norman. will continue to offer support to patient, family, and care team regarding discharge planning and disposition. - MH Services (Omit if N/A) Current MH Services: [facility]
--- NOTE | 2018-09-22 13:31 | CMPROGNOTE_ITS ---
- If Service Date Differs Date of service: 09/22/18 Time of Service: 13:07 Care Management Progress Note S/O: Perez was extubated this morning at 0815 and awakened quickly with no complications. His brother, Cb and sister in law, Radha, are at bedside while respiratory and MD assess the patient. As Perez awakened he became agitated, and per nursing report, attempted to pull out his IVs as MD discussed his remaining at the hospital. Patient was verbally calmed and agreed to further evaluation. Per protocol, [facility] has been called to evaluate the patient for SI/HI prior to consideration for discharge. [facility] Clint arrived for assessment and initially recommended that Perez be discharged to the community and follow up with [facility] in a week for therapeutic support. disagreed with this assessment and voiced her concerns with [facility] and [facility]. Following ongoing discussions, all are in agreement that Perez could discharge the hospital with his family and follow up with [facility] and [facility] for continued maintenance. Clint [facility], was unable to access the [employer] system so had hand written his assessment. Assessment will be scanned into the system. A: 42 year old male admitted following drug OD on 09/20/2017. P: Perez will discharge home when medically ready per MD. Anticipate patient will discharge home and follow up with [facility] services and [facility]. Perez will transport via private vehicle with his brother, Norman. will continue to offer support to patient, family, and care team regarding discharge planning and disposition. - MH Services (Omit if N/A) Current MH Services: [facility]
--- NOTE | 2018-09-22 14:07 | PT.INNT ---
Date of service: 09/22/18 Time of Service: 14:07 PT Notes 09/22/18 Attempted PT consult x 2 today, although patient was being seen by other providers and subsequently unavailable. On third attempt, patient was no longer here at the hospital. No PT consult performed during stay.
--- NOTE | 2018-09-22 14:26 | NUR.NOTE ---
Patient has wanted to leave since extubation. The patient has had Clint with mental health services and spoke with Dr. Blancas. Dr. Blancas was able to speak to the patient in [place] and the patient understands some Yi. The patient was watched continuously by Lilo Dumont RN or other licensed observer. The patient was cleared by mental health and Dr. Blancas for not being an involuntary admission. Dr. Blancas wanted the patient to stay for 24 hours post-intubation and both Lilo Dumont RN and Dr. Blancas reviewed the risks of leaving this soon including airway swelling, pneumonia, bleeding, up to . The patient agrees that he understands these risks as they were also presented to the patient in [place]. The patient signed the AMA sheet and was escorted to the lobby by Lilo Dumont RN, his brother, and a female friend. Pt has denied suicidal ideation or suicidal attempt since being extubated. Nursing Note:
--- NOTE | 2018-09-22 14:33 | CMDISCH_ITS ---
- If Service Date Differs Date of service: 09/22/18 Time of Service: 14:31 LACE Index Scoring Tool - Questions: Length of Stay (in days): 3 Acuity (Admit via E.D.?): Yes E.D. Visits: 3 - Answers: Total Score: 9 Risk of Readmission: Low Risk Care Management Discharge Reason for Hospitalization: Drug OD. Discharge Plan: Perez left AMA with his brother, Cb. Patient/Family Education Needs: Discharge education, any limitations, and follow up plan of care. Ask Me Three discussion. AMA risks. - MH Services (Omit if N/A) Current MH Services: [facility]
--- NOTE | 2018-09-22 14:40 | W.PM.DS.N ---
Date of service: 09/22/18 Time of Service: 14:40 DS: Diagnosis Discharge Diagnosis (1) OD (overdose of drug): Status: Acute (2) Respiratory failure: Status: Acute (3) Leucocytosis: Status: Acute (4) Hypomagnesemia: Status: Acute Discharge Plan Disposition Patient Disposition: AGAINST MEDICAL ADVICE Condition: Stable Discharge Details Reason For Visit: DRUG OD Admit Date/Time: 09/20/18 19:30 Admit Provider: Sergey Hernandez Attending Provider: Sergey Hernandez [facility] Hospital Course: Mr Fidencio Lin is a 42 year old male admitted to [facility] ICU after a drug overdose, requiring intubation/mechanical ventillation. Based on the results of UDS and blood toxicology tests, it is suspected that the overdose was likely due to opioids/methadone and concurrent alcohol use. The course on the ventilator was uneventful, and the patient was extubated on 09/22/18. Following this, we immediately consulted mental health. While suicide attempt was initially suspected, mental health did research the situation more deeply and felt that this was more likely to have been a recurrence of drug use and an unintentional overdose, not requiring further inpatient psychiatric hospitalization. The patient's family was enrolled into a plan where the patient would be watched 05/04 (brother, sister in law). He will be following up with [facility] and was given information on mental health. Unfortunately, the patient left AMA just hours after extubation, despite being councilled on risks thereof, including . He verbalized understanding, yet chose to go home. Home Meds and New Rx's Prescriptions: No Action methadone 10 MG/ML concentrate 70 mg PO DAILY RF: 0 cyclobenzaprine 10 mg tablet 10 mg PO TID PRN (Reason: muscle spasm) Qty: 14 RF: 0 ibuprofen [IBU] 600 mg tablet 600 mg PO QID PRN (Reason: pain) Qty: 14 RF: 0 acetaminophen 500 mg capsule 500 mg PO Q6H PRN (Reason: pain) Qty: 14 RF: 0 Discharge Instructions Instructions: Opioid Overdose (DC) Additional Instructions: Return to the hospital with any shortness of breath Care Plan Goals: Follow up with mental health Activity:: Activity as Tolerated Equipment/Supplies:: No Equipment Needed Diet:: As Tolerated Discharge Orders Discharge Orders: Discharge Order (Routine); Ordered 09/22/18 Ordered By: Haylie Blancas Discharge Data Discharge Date/Time-TO BE ENTERED AT DEPARTURE: 09/22/18 13:45 Exam Narrative Exam Narrative: General: initially awake, following commands; post intubation, breathing comfortably, talking, protecting airway HEENT: EOMI, MMM Heart: RRR, no m/r/g Lungs: CTAB GI: abdomen soft, nontender Extremities: no e/c/c BLE's DS: Data Vitals/I&O Vitals and I&O: Vital Signs Temperature 37 C 09/22/18 12:02 Temperature Source Temporal Artery Scan 09/22/18 12:02 Pulse 69 09/22/18 12:12 Pulse 88 09/22/18 13:30 Respiratory Rate 24 09/22/18 13:30 Respiratory Effort Non-Labored 09/22/18 12:02 Respiratory Depth Normal 09/22/18 12:02 Respiratory Pattern Normal 09/22/18 12:02 Blood Pressure 118/83 09/22/18 12:12 Blood Pressure Mean 90 09/22/18 12:12 Blood Pressure Position Supine 09/22/18 02:52 Pulse Oximetry 99 09/22/18 12:02 Respiratory End-tidal CO2 20 09/22/18 09:01 Oxygen Delivery Method Room Air 09/22/18 12:02 Oxygen Flow Rate 0 09/22/18 12:02 Fraction of Inspired Oxygen (FIO2) 35 09/22/18 09:30 Pain Level 0 09/22/18 12:02 Intake & Output 09/21/18 09/22/18 09/22/18 23:59 11:59 23:59 Intake Total 2430.753 / 3581.832 1324.337 / 2060.337 736 / 2060.337 Output Total 2175 / 4750 1525 / 1525 Balance 255.753 / -1168.168 -200.663 / 535.337 736 / 535.337 Weight 63.4 kg Intake: IV 2430.753 / 3581.832 1324.337 / 1324.337 Oral 736 / 736 Output: Gastric Drainage 500 / 1200 350 / 350 Right Nare 500 / 1200 350 / 350 Urine 1675 / 3550 1175 / 1175 Other: Urine Color Yellow Yellow Green Urine Appearance Clear Clear Comment Bahena putting out large amounts clear yellow urine Bahena in place and draining Pt has urinated twice after having the bahena removed Completed studies during hospitalization [Text1]: CXR: No change in position of endotracheal tube and nasogastric tube. No acute abnormality is seen. Labs on day of discharge: Labs from last 24 hours 09/22/18 09/22/18 09/22/18 07:33 06:28 06:28 WBC 12.39 H RBC 4.07 L Hgb 13.7 Hct 40.0 MCV 98.3 H MCH 33.7 H MCHC 34.3 RDW 13.1 Plt Count 210 MPV 9.7 Immature Gran % 0.2 Neutrophils % 53.1 Lymphocytes % 37.8 Monocytes % 7.8 Eosinophils % 0.8 Basophils % 0.3 Absolute Neutrophils 6.58 Absolute Lymphocytes 4.68 H Absolute Monocytes 0.97 H Absolute Eosinophils 0.10 Absolute Basophils 0.04 Sample Site Right radial pCO2 40 pO2 67 L O2 Saturation 94 ABG pH 7.46 H ABG HCO3 28 ABG Total CO2 25 ABG Base Excess 4.1 H Oxygen Liter Flow Vent/425/14 FiO2 21 Sodium 144 Potassium 3.4 L Chloride 105 Carbon Dioxide 27.7 Anion Gap 11.3 H BUN 13 Creatinine 1.18 Estimated GFR/1.73 m2 >= 60.00 Glucose 68 L Calcium 8.3 L Magnesium 1.9 09/21/18 Unknown WBC RBC Hgb Hct MCV MCH MCHC RDW Plt Count MPV Immature Gran % Neutrophils % Lymphocytes % Monocytes % Eosinophils % Basophils % Absolute Neutrophils Absolute Lymphocytes Absolute Monocytes Absolute Eosinophils Absolute Basophils Sample Site Cancelled pCO2 Cancelled pO2 Cancelled O2 Saturation Cancelled ABG pH Cancelled ABG HCO3 Cancelled ABG Total CO2 Cancelled ABG Base Excess Cancelled Oxygen Liter Flow Cancelled FiO2 Cancelled Sodium Potassium Chloride Carbon Dioxide Anion Gap BUN Creatinine Estimated GFR/1.73 m2 Glucose Calcium Magnesium [facility] Social History Smoking/Tobacco Use Status: Current every day
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
== END 2018-09-22 13:45 | disposition left against medical advice (07) | DRG 917 ==
LOC: ER 17:46 → ICU 21:15
PROVIDERS: Admitting Provider General Practice; Emergency Provider Student in an Organized Health Care Education/Training Program; PCP Nurse Practitioner Family; Visit Provider Internal Medicine
DX: T40.3X1A Poisoning by methadone, accidental (unintentional), initial encounter (principal); J96.00 Acute respiratory failure, unspecified whether with hypoxia or hypercapnia; F11.20 Opioid dependence, uncomplicated; Z99.11 Dependence on respirator [ventilator] status; Z53.21 Procedure and treatment not carried out due to patient leaving prior to being seen by health care provider; F17.210 Nicotine dependence, cigarettes, uncomplicated; S31.119A Laceration without foreign body of abdominal wall, unspecified quadrant without penetration into peritoneal cavity, initial encounter; X58.XXXA Exposure to other specified factors, initial encounter; Y92.019 Unspecified place in single-family (private) house as the place of occurrence of the external cause; D72.829 Elevated white blood cell count, unspecified; E83.42 Hypomagnesemia; Z78.1 Physical restraint status
CPT/HCPCS: 31500; 36415; 51702; 71045; 80048; 80053; 80307; 82805; 90471; 93005; 96361; 96365; 96366; 96372; 96375; 99222; 99233; 99239; 99291; 36600; 70450; 80320; 80329; 81003; 83735; 84443; 85025; 85610; 85730; 87205; 93010; 94002; 94003; 94640; 99223; J2060; J3490; J7620

== ENCOUNTER 2018-11-23 12:00 | Outpatient (CLI) | payer MEDICAID, SELFPAY ==
--- NOTE | 2018-11-23 12:34 | DI.RAD_ITS ---
SYMPTOMS/DIAGNOSIS: PAIN IN RIGHT SHOULDER, M25.511 RIGHT SHOULDER: The bony structures are normally mineralized. 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
== END 2018-11-23 12:20 ==
LOC: NCHCO 12:06 → DI 12:19
PROVIDERS: PCP Nurse Practitioner Family; Visit Provider Nurse Practitioner Family
DX: M25.511 Pain in right shoulder (principal); M19.011 Primary osteoarthritis, right shoulder
CPT/HCPCS: 73030

== ENCOUNTER 2019-02-03 06:37 | Emergency (ER) | payer MEDICAID, SELFPAY ==
[2019-02-03 06:40] VITALS: BP 124/91; PULSE 92; RESP 16; TEMP 37.1; O2SAT 97
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
== END 2019-02-03 06:50 | disposition home or self-care (01) ==
PROVIDERS: Emergency Provider Emergency Medicine; PCP Nurse Practitioner Family
DX: S00.81XA Abrasion of other part of head, initial encounter (principal); S00.01XA Abrasion of scalp, initial encounter; Y04.0XXA Assault by unarmed brawl or fight, initial encounter
CPT/HCPCS: 99281; 99282

== ENCOUNTER 2019-03-09 15:56 | Emergency (ER) | payer MEDICAID, SELFPAY ==
[2019-03-09 16:01] VITALS: BP 118/67; PULSE 84; RESP 14; TEMP 36.9; O2SAT 98
--- NOTE | 2019-03-09 16:17 | DI.RAD_ITS ---
SYMPTOM/DIAGNOSIS: LATERAL ANKLE PAIN, LATERAL FOOT PAIN LEFT ANKLE : 03/09 Three views were obtained. No fracture seen. LEFT FOOT: 03/09 Three views were obtained. No fracture seen. Note is made of a mild hallux valgus deformity with minimal secondary degenerative changes.
[2019-03-09] MEDS: Ibuprofen 800 MG TAB PO (16:23)
--- NOTE | 2019-03-09 16:52 | DI.VRAD_ITS ---
EXAM: XR Left Foot Complete EXAM DATE/TIME: 03/09/2019 4:19 PM CLINICAL HISTORY: 43 years old, male; Pain; Foot; Left TECHNIQUE: Imaging protocol: XR Left foot. Views: 3 or more views. COMPARISON: No relevant prior studies available. FINDINGS: Bones/joints: Soft tissue and bony bunion. 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 Bipartite medial sesamoid of the great toe. Normal bone density. No fracture or osteonecrosis. Soft tissues: Normal soft tissues. IMPRESSION: 1. No fracture. 2. Soft tissue and bony bunion with mild degenerative arthrosis of the great toe metatarsophalangeal joint. Dictated and Authenticated by: Salvador Escudero MD. Ordering:SHMUEL Coreas MD
--- NOTE | 2019-03-09 16:53 | DI.VRAD_ITS ---
EXAM: XR Left Ankle EXAM DATE/TIME: 03/09/2019 4:19 PM CLINICAL HISTORY: 43 years old, male; Pain; Ankle; Left TECHNIQUE: Imaging protocol: XR Left ankle. Views: 3 or more views. COMPARISON: No relevant prior studies available. FINDINGS: Bones/joints: No bone or joint abnormality. No fracture or osteonecrosis. Soft tissues: Mild swelling of the anterior ankle soft tissues. IMPRESSION: Mild swelling of the anterior ankle soft tissues. Dictated and Authenticated by: Salvador Escudero MD. Ordering:SHMUEL Coreas MD
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
== END 2019-03-09 18:11 | disposition home or self-care (01) ==
PROVIDERS: Emergency Provider Nurse Practitioner Family; PCP Nurse Practitioner Family
DX: M20.12 Hallux valgus (acquired), left foot (principal); W11.XXXA Fall on and from ladder, initial encounter
CPT/HCPCS: 29515; 99284; 73610; 73630; E0114; L4361

== ENCOUNTER 2019-08-22 11:05 | Emergency (ER) | payer MEDICAID, SELFPAY ==
[2019-08-22 11:11] VITALS: BP 100/67; PULSE 99; RESP 16; TEMP 36.6; O2SAT 99
--- NOTE | 2019-08-22 11:39 | W.ED.GENAD ---
Discharge Plan Disposition Patient Disposition: HOME Discharge Details Chief Complaint: Cellulitis Clinical Impression: Gout attack Primary Care Provider: Erik Velasquez ED Provider: Bethel Cobb Home Meds and New Rx's Prescriptions: New naproxen 500 mg tablet 500 mg PO BID 10 Days Qty: 20 RF: 0 Discontinued ibuprofen [IBU] 600 mg tablet 600 mg PO QID PRN (Reason: pain) Qty: 20 RF: 0 Discharge Instructions Instructions: Gout (ED) Additional Instructions: Your symptoms today are concerning for an acute gouty flare. I have provided a prescription for naproxen with which you should take 1 pill twice daily. Take medication with food. Avoid wine, cheese or food rich in protein. You must follow-up with your primary care provider Erik Velasquez within the next 3 to 5 days, as she will most likely require long-term chronic therapy for your gout. Referrals: Erik Velasquez, RESEARCH PROJECT COORDINATOR [Primary Care Provider] - 3 days Discharge Data Discharge Date/Time-TO BE ENTERED AT DEPARTURE: 08/22/19 12:35 Medical Decision Making This is a nontoxic-appearing 43-year-old male presenting to the emergency department with symptoms concerning for acute gout flare. Vital signs stable. Physical exam demonstrates pain, swelling and erythema over the left first MTP joint. Good cap refill distally. He is not currently on any chronic gout therapy. Plan is to obtain plain films of the left foot along with provide a dose of naproxen 500 mg p.o. here. He had multiple flares in the past and most likely will require chronic therapy. HPI General Date/Time Provider Initiated Documentation: 08/22/19 11:06. HPI Narrative: Patient is a 43-year-old male with significant past medical history for frequent gouty flares involving the left MTP joint who presents to the emergency department with pain and swelling over the first MTP joint of the left foot. He states that his symptoms been going on for roughly 2 to 3 days. This is 1 of his more severe flares had in the past. He denies any change in diet. No alcohol use. He is a nondiabetic. He denies any fevers or chills. He has not had any long-term gout therapy. He has not taken anything for the pain currently. He states that he has had roughly 5-6 flares this severe but multiple minor flares in the past. Related Data Home Medications Medication Instructions Recorded Confirmed naproxen 500 mg PO BID 10 Days #20 tab 08/22/19 Previous Rx's Medication Instructions Recorded naproxen 500 mg PO BID 10 Days #20 tab 08/22/19 Allergies Allergy/AdvReac Type Severity Reaction Status Date / Time No Known Allergies Allergy Unverified 08/22/19 11:14 General Stated Complaint: Cellulitis DON: 3 Review of Systems Constitutional Constitutional: Denies chills, Denies fever(s) and Denies malaise Musculoskeletal Musculoskeletal: Reports arthralgias and Reports joint swelling Integumentary/Breasts Skin/Breast: Reports erythema PFSH Social History Smoking/Tobacco Use Status: Current every day Tobacco Type: cigarettes Alcohol Intake: current Alcohol Intake frequency: holidays/special occasions only Drug use: Daily Substance use type: marijuana Do you feel safe at home: Yes Do you feel safe in your relationship?: Yes Exam Const Orientation: alert, awake and oriented x3 Cardio Pulses: normal peripheral pulses Extrem Left lower extremity: foot Details: abnormal to inspection Details: erythematous, tenderness Location: of the great toe Location: at the MTP joint and warmth Location: of the great toe Location: at the MTP joint Course Vital Signs Vital signs: Vital Signs Temperature 36.6 C 08/22/19 11:11 Pulse 99 H 08/22/19 11:11 Respiratory Rate 16 08/22/19 11:11 Blood Pressure 100/67 08/22/19 11:11 Pulse Oximetry 99 08/22/19 11:11 Temperature 36.6 C 08/22/19 11:11 Temperature Source Skin 08/22/19 11:11 Pulse 99 H 08/22/19 11:11 Respiratory Rate 16 08/22/19 11:11 Respiratory Effort Non-Labored 08/22/19 11:11 Blood Pressure 100/67 08/22/19 11:11 Blood Pressure Position Sitting 08/22/19 11:11 Pulse Oximetry 99 08/22/19 11:11 Oxygen Delivery Method Room Air 08/22/19 11:11 Oxygen Flow Rate 0 08/22/19 11:11 Pain Level 10 08/22/19 11:11
[2019-08-22] MEDS: Naproxen 500 MG TAB PO (11:47)
--- NOTE | 2019-08-22 11:59 | DI.RAD_ITS ---
EXAM: XR FOOT LT COMPLETE INDICATION: Severe pain and swelling of the first MTP joint. COMPARISON: No exams were available for comparison TECHNIQUE: 2D digital imaging was performed. FINDINGS: There is soft tissue swelling adjacent to the 1st MTP joint. There are mild degenerative changes. N o bony erosions or foreign bodies are seen. There is no evidence of fracture. IMPRESSION: Soft tissue swelling. No bony erosions.
--- NOTE | 2019-08-22 12:20 | NUR.NOTE ---
Nursing Note: Faxed to PCP referral for follow up. Shaunna capellan.
== END 2019-08-22 12:35 | disposition home or self-care (01) ==
PROVIDERS: Emergency Provider Physician Assistant; PCP Nurse Practitioner Family
DX: M10.9 Gout, unspecified (principal)
CPT/HCPCS: 99282; 73630

== ENCOUNTER 2020-03-28 06:22 | Emergency (ER) | payer MEDICAID, SELFPAY ==
[2020-03-28 06:25] VITALS: BP 117/87; PULSE 64; RESP 16; TEMP 36.5; O2SAT 98
--- NOTE | 2020-03-28 06:32 | ED.GENADUL_ITS ---
Discharge Plan Disposition Patient Disposition: HOME Condition: Good Discharge Details Chief Complaint: DentalOral Clinical Impression: Pain, dental, Infected dental carries Primary Care Provider: Erik Velasquez ED Provider: Syed Fallon Home Meds and New Rx's Prescriptions: New penicillin V potassium 500 mg tablet 500 mg PO QID 10 Days Qty: 40 RF: 0 acetaminophen [Mapap Extra Strength] 500 MG tablet 1,000 mg PO Q6H 5 Days Qty: 60 RF: 0 ibuprofen [Motrin IB] 200 MG tablet 600 mg PO Q6H 5 Days Qty: 60 RF: 0 Discharge Instructions Instructions: Dental Caries (ED) Additional Instructions: At this time you have infection of your teeth. Please take the antibiotic as directed. Please take the Tylenol and Motrin as directed. Please contact the dentist on her list for definitive management. If you notice worsening of your swelling please return immediately for reassessment and potential needle for drainage. If you notice any worsening of your symptoms, or any new symptoms such as vomiting, diarrhea, fever, chills, shortness of breath, chest pain, numbness, weakness, or fainting , please return immediately to the emergency department for reevaluation. Please follow up with your primary care provider as soon as possible for reassessment and reevaluation. As always, it was a pleasure participating in your medical care today. Referrals: Erik Velasquez, [employer] [Primary Care Provider] - Medical Decision Making 44-year-old male presents today for evaluation of left upper dental pain. He states that the pain began early this morning/yesterday evening, with some mild swelling began this morning. He denies fever or chills, difficulty swallowing, or other complaints. He states he has a history of severe dental caries which is well-known. Aside for this he has no other complaints at this time. He describes the pain is mild, 4-5 out of 10. No other modifying factors. Physical exam demonstrates mild swelling around the soft tissues around tooth 12 and 13, but no evidence of fluctuance whatsoever, no periapical abscess. Patient would like to hold off on any dental block or needle aspiration attempts. Will give penicillin/antibiotic for treatment of infection, recommend Tylenol and Motrin, and will give dental sheet for use. Patient does agree to return if his swelling worsens for reassessment. I have extensively reviewed the treatment plan and discharge instructions with the patient. I have addressed all patient concerns at this time. The patient was made aware of what symptoms to monitor for that would warrant a return to the emergency department. Discussed the plan with the patient, they demonstrate verbal understanding and agreement with our assessment and plan at this time. HPI General Date/Time Provider Initiated Documentation: 03/28/20 06:25 . HPI Narrative: 44-year-old male presents today for evaluation of left upper dental pain. He states that the pain began early this morning/yesterday evening, with some mild swelling began this morning. He denies fever or chills, difficulty swallowing, or other complaints. He states he has a history of severe dental caries which is well-known. Aside for this he has no other complaints at this time. He describes the pain is mild, 4-5 out of 10. No other modifying factors. Related Data Home Medications Medication Instructions Recorded Confirmed acetaminophen [Mapap Extra 1,000 mg PO Q6H 5 Days #60 tab 03/28/20 Strength] ibuprofen [Motrin Ib] 600 mg PO Q6H 5 Days #60 tab 03/28/20 penicillin V potassium 500 mg PO QID 10 Days #40 tab 03/28/20 Previous Rx's Medication Instructions Recorded acetaminophen [Mapap Extra 1,000 mg PO Q6H 5 Days #60 tab 03/28/20 Strength] ibuprofen [Motrin Ib] 600 mg PO Q6H 5 Days #60 tab 03/28/20 penicillin V potassium 500 mg PO QID 10 Days #40 tab 03/28/20 Allergies Allergy/AdvReac Type Severity Reaction Status Date / Time No Known Allergies Allergy Unverified 03/28/20 06:26 General Stated Complaint: DentalOral DON: 4 Review of Systems All systems reviewed & are unremarkable except as noted in HPI and below [facility] Social History Smoking/Tobacco Use Status: Current every day Tobacco Type: cigarettes Alcohol Intake: current Alcohol Intake frequency: holidays/special occasions only Drug use: Daily Substance use type: marijuana Do you feel safe at home: Yes Do you feel safe in your relationship?: Yes Exam Narrative Exam Narrative: 1.Const: Well-nourished, Well-developed, appearing stated age 2.Eyes: PERRL, no conjunctival injection, and symmetrical lids. 3.ENT: Atraumatic external nose and ears. Moist MM. Neck: Symmetric, trachea midline, No thyromegaly. Severe dental caries throughout, mild soft tissue swelling around the left upper teeth, particularly around teeth 12 and 13. However there is no palpable abscess or fluctuance to suggest periapical abscess. No signs of airway compromise. 4.CVS: +S1/S2, No murmurs or gallops. Peripheral pulses 2+ and equal in all extremities. Brisk capillary refill in all extremities. 5.RESP: Unlabored respiratory effort. Clear to auscultation bilaterally. No wheezes rales or rhonchi 6.GI: Soft, Nontender/Nondistended, No hepatosplenomegaly. No guarding or rebound. 7.MSK: Normocephalic/Atraumatic, Extremities w/o deformity or ttp No cyanosis or clubbing, Normal movement of all extremities 8.Skin: Warm, Dry. No rashes or lesions. 9.Neuro: it support engineer II-XII grossly intact. Sensation grossly intact, no focal neurologic deficits. 10.Psych: (AAO) x3. Appropriate mood and affect Course Vital Signs Vital signs: Vital Signs Temperature 36.5 C 03/28/20 06:25 Pulse 64 03/28/20 06:25 Respiratory Rate 16 03/28/20 06:25 Blood Pressure 117/87 03/28/20 06:25 Pulse Oximetry 98 03/28/20 06:25 Temperature 36.5 C 03/28/20 06:25 Temperature Source Temporal Artery Scan 03/28/20 06:25 Pulse 64 03/28/20 06:25 Respiratory Rate 16 03/28/20 06:25 Respiratory Effort 03/28/20 06:27 Blood Pressure 117/87 03/28/20 06:25 Blood Pressure Position Sitting 03/28/20 06:25 Pulse Oximetry 98 03/28/20 06:25 Oxygen Delivery Method Room Air 03/28/20 06:25 Oxygen Flow Rate 0 03/28/20 06:25
== END 2020-03-28 06:36 | disposition home or self-care (01) ==
LOC: ER 06:34
PROVIDERS: Emergency Provider Student in an Organized Health Care Education/Training Program; PCP Nurse Practitioner Family
DX: R68.84 Jaw pain (principal); K04.7 Periapical abscess without sinus
CPT/HCPCS: 99283

== ENCOUNTER 2022-03-27 23:51 | Emergency (ER) | payer MEDICAID, SELFPAY ==
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
[2022-03-28 00:06] VITALS: BP 126/87; PULSE 80; RESP 16; TEMP 36.5; O2SAT 98
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
[2022-03-28] MEDS: Lidocaine 5% Patch 1 PATCH TP (01:10)
[2022-03-28] MEDS: Ketorolac 15 MG/ML VIAL IVP (01:10)
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
[2022-03-28 01:48] VITALS: BP 121/74; PULSE 54; RESP 18; O2SAT 96
== END 2022-03-28 01:48 | disposition home or self-care (01) ==
PROVIDERS: Emergency Provider Student in an Organized Health Care Education/Training Program; PCP Nurse Practitioner Family
DX: G89.11 Acute pain due to trauma (principal); M54.2 Cervicalgia; F17.210 Nicotine dependence, cigarettes, uncomplicated; V89.2XXA Person injured in unspecified motor-vehicle accident, traffic, initial encounter
CPT/HCPCS: 96374; 99284; 70450; 72125; 72128; J1885

== ENCOUNTER 2022-05-20 10:51 | Emergency (ER) | payer MEDICAID, SELFPAY ==
[2022-05-20 11:06] VITALS: BP 114/82; PULSE 75; RESP 16; TEMP 36.1; O2SAT 99
[2022-05-20] MEDS: Fluorescein STRIPS 100/BOX 1 MG (11:38)
[2022-05-20] MEDS: Tetracaine 0.5% 4 ML BTL (11:38)
--- NOTE | 2022-05-20 13:13 | ED.GENADUL_ITS ---
Discharge Plan Disposition Patient Disposition: HOME Condition: Stable Discharge Details Clinical Impression: Conjunctivitis Primary Care Provider: Erik Velasquez ED Provider: Brandin Bowers Home Meds and New Rx's Prescriptions: New erythromycin 5 mg/gram (0.5 %) ointment 0.5 inch ophthalmic (eye) QID Qty: 3.5 0RF Discharge Instructions Instructions: Conjunctivitis (ED) Additional Instructions: Erythromycin as directed. Warm moist compresses every 2 hours for 20 minutes. Please watch for new or worsening symptoms and return to the ER for any concerns. Lastly, if symptoms not improving over the next 48 hours, please follow-up with [facility] Referrals: [facility] [Outside] Medical Decision Making 46-year-old gentleman reports that he does not wear contacts or glasses, awoke this morning with what he described as a pimple on his eye, the pimple has now gone away but he continues to have irritation, redness and drainage. No evidence of abrasion or foreign body. I do not see any evidence of a hordeolum. Examination is consistent with conjunctivitis and will treat as such. We will provide Ilotycin now. Visual acuities were obtained and unremarkable, please see RN note. Please note patient was asymptomatic after tetracaine was applied. Standard discharge and return precautions were provided. Patient understands, is agreeable to this plan, and has no additional questions or concerns upon discharge. This documentation was generated using [employer] system, please disregard any oddities of phrase or misspellings. Medical Records Medical records reviewed: Yes I reviewed the patient's medical records. HPI General Mode of arrival: ambulatory . Date/Time Provider Initiated Documentation: 05/20/22 13:13 . Limitations to Documentation: no limitations . Information obtained by: patient . History of Present Illness 46 year old M presents to the emergency department with the chief complaint of R eye infection, described as mild, with intensity rated at 2. Quality is described as other (Irritation), and is localized to the eyes and right. Patient reports no radiation. Patient started experiencing this hour(s) (8) and it has been constant. No relieving factors improve symptom(s), No exacerbating factors reported . Patient notes other (Right eye discharge). Patient did receive the following treatments prior to arrival, none Related Data Home Medications Medication Instructions Recorded Confirmed erythromycin 5 mg/gram (0.5 %) eye 0.5 inch ophthalmic (eye) QID #3.5 05/20/22 ointment grams Previous Rx's Medication Instructions Recorded erythromycin 5 mg/gram (0.5 %) eye 0.5 inch ophthalmic (eye) QID #3.5 05/20/22 ointment grams Allergies Allergy/AdvReac Type Severity Reaction Status Date / Time No Known Allergies Allergy Unverified 05/20/22 11:10 General Stated Complaint: EyeProblem DON: 4 Review of Systems Constitutional Constitutional: Denies fever(s) Eyes Eyes: Denies change in vision, Reports eye discharge, Reports irritation and Denies photophobia ENT Ears, Nose, Mouth, and Throat: Denies neck pain Musculoskeletal Musculoskeletal: Denies neck pain Integumentary/Breasts Skin/Breast: Denies rash PFSH All Active Problems (Updated 05/20/22 @ 13:48 by ALEXA Duran) Conjunctivitis (Acute) Social History Smoking/Tobacco Use Status: Current every day Tobacco Type: cigarettes Smoking risk assessment performed?: Yes Alcohol Intake: current Alcohol Intake frequency: holidays/special occasions only Drug use: Daily Substance use type: marijuana Do you feel safe at home: Yes Do you feel safe in your relationship?: Yes Exam Const General: cooperative, healthy appearing, comfortable and no acute distress Orientation: alert and awake HENMS Head: normal to inspection, normocephalic and atraumatic Face and sinus: normal facial exam Mouth: moist mucous membranes Eyes Alignment and Position: alignment normal Periorbital: periorbital findings normal Eyelids: eyelids normal (Right eyelid flipped for exam) Conjunctivae: conjunctival abnormality right conjunctival injection and discharge purulent Sclera: sclerae normal Cornea: corneas normal and fluorescein used Pupils: PERRL EOM: EOM intact bilaterally Direct ophthalmoscopy: normal light reflex Neck Neck: normal visual inspection, full ROM, trachea midline and supple Resp Effort & Inspection: normal respiratory effort and able to speak in complete sentences Skin General skin exam: no rashes or lesions noted Neuro General: patient alert, patient awake, moves all extremities and no focal motor deficits Cognition: normal cognition Speech: speech normal Gait: normal gait Sensory Exam: no sensory deficits noted Psych Appearance: grossly normal Mental Status: mental status grossly normal Course Vital Signs Vital signs: Vital Signs Temperature 36.1 C L 05/20/22 11:06 Pulse 75 05/20/22 11:06 Respiratory Rate 16 05/20/22 11:06 Blood Pressure 114/82 05/20/22 11:06 Pulse Oximetry 99 05/20/22 11:06 Temperature 36.1 C L 05/20/22 11:06 Temperature Source Tympanic 05/20/22 11:06 Pulse 75 05/20/22 11:06 Respiratory Rate 16 05/20/22 11:06 Blood Pressure 114/82 05/20/22 11:06 Blood Pressure Position Sitting 05/20/22 11:06 Pulse Oximetry 99 05/20/22 11:06 Oxygen Delivery Method Room Air 05/20/22 11:06 Oxygen Flow Rate 0 05/20/22 11:06 Pain Level 5 05/20/22 11:06
[2022-05-20] MEDS: Erythromycin Ophth Oint 3.5 GM TUBE OU (13:44)
== END 2022-05-20 14:01 | disposition home or self-care (01) ==
PROVIDERS: Emergency Provider Physician Assistant; PCP Nurse Practitioner Family
DX: H10.9 Unspecified conjunctivitis (principal)
CPT/HCPCS: 99283; 99284

== ENCOUNTER 2023-05-31 06:58 | Emergency (ER) | payer MEDICAID, SELFPAY ==
[2023-05-31] VITALS (30 sets, daily range): BP systolic 88–106; BP diastolic 49–59; PULSE 41–59; RESP 4–20; TEMP 36.5; O2SAT 95–100
--- NOTE | 2023-05-31 09:00 | ED.GENADUL_ITS ---
Discharge Plan Disposition Patient Disposition: Home Condition: Good Discharge Details Clinical Impression: Cellulitis Primary Care Provider: Unknown,Unknown ED Provider: Steph Williamson Home Meds and New Rx's Prescriptions: New sulfamethoxazole-trimethoprim [Bactrim DS] 800-160 mg tablet 1 tab PO BID Qty: 14 0RF No Action erythromycin 5 mg/gram (0.5 %) ointment 0.5 inch ophthalmic (eye) QID Qty: 3.5 0RF Patient Comments: pt states not using anymore Discharge Instructions Instructions: Cellulitis (ED) Additional Instructions: Call your PCP today to schedule a followup appointment within 5 days to follow up on your visit here. Return to the emergency department if your symptoms do not begin to improve within 48 hours, or if you develop new or worsening symptoms including fever, worsening pain or swelling, or if you have any other concerns. HPI General Date/Time Provider Initiated Documentation: 05/31/23 07:06 . HPI Narrative: Patient presents with a chief complaint of R hand swelling that began yesterday morning. The patient states he went to bed around 3:00 in the morning and woke up 3 hours later with the throbbing pain and swelling. Extension makes this worse. He denies trauma. He has a long history of IVDA but states that he has not shot in his hand any time recently. There is no numbness and it is not hot. He denies fever, chills, or other systemic c/o. He typically shoots heroin. He has white material on his hand and states that it is normal paint. There is no evidence of PW or skin trauma on his R hand. Related Data Home Medications Medication Instructions Recorded Confirmed erythromycin 5 mg/gram (0.5 %) eye 0.5 inch ophthalmic (eye) QID #3.5 05/20/22 ointment grams sulfamethoxazole 800 1 tab PO BID #14 tabs 05/31/23 mg-trimethoprim 160 mg tablet (Bactrim DS) Previous Rx's Medication Instructions Recorded erythromycin 5 mg/gram (0.5 %) eye 0.5 inch ophthalmic (eye) QID #3.5 05/20/22 ointment grams sulfamethoxazole 800 1 tab PO BID #14 tabs 05/31/23 mg-trimethoprim 160 mg tablet (Bactrim DS) Allergies Allergy/AdvReac Type Severity Reaction Status Date / Time No Known Allergies Allergy Unverified 05/31/23 07:05 General Stated Complaint: Cellulitis DON: 3 Review of Systems Constitutional Constitutional: Denies chills, Denies fever(s), Denies headache(s) and Denies weakness Eyes Eyes: Denies diplopia and Reports other (no redness) ENT Ears, Nose, Mouth, and Throat: Denies otalgia, Denies headache(s), Denies nasal congestion, Denies nasal discharge, Denies neck pain and Denies sore throat Cardiovascular Cardiovascular: Denies chest pain, Denies palpitations and Denies dyspnea Respiratory Respiratory: Denies cough and Denies dyspnea Gastrointestinal Gastrointestinal: Denies abdominal pain, Denies diarrhea, Denies nausea and Denies vomiting Genitourinary Genitourinary: Denies difficulty urinating and Denies dysuria Musculoskeletal Musculoskeletal: Denies myalgias, Denies muscle weakness, Denies neck pain, Denies numbness and Reports other (edema) Comments: R hand swollen Integumentary/Breasts Skin/Breast: Denies change in pigmentation and Denies rash Neurologic Neurologic: Denies headache(s), Denies numbness and Denies weakness Endocrine Endocrine: Denies palpitations PFSH All Active Problems (Updated 05/31/23 @ 10:51 by Steph Williamson MD) Cellulitis (Acute) Social History Smoking/Tobacco Use Status: Current every day Tobacco Type: cigarettes Smoking risk assessment performed?: Yes Alcohol Intake: current Alcohol Intake frequency: holidays/special occasions only Drug use: Daily Substance use type: marijuana, heroin and IV drugs Housing: apartment Do you feel safe at home: Yes Do you feel safe in your relationship?: Yes Exam Const General: no acute distress, well developed, well groomed and not in acute distress Nutritional Appearance: thin Orientation: alert and oriented x3 Limitations: mental status not altered [facility] Head: normocephalic and atraumatic Ears: external ears normal Mouth: oropharynx normal and moist mucous membranes Throat: posterior oropharynx normal Eyes Conjunctivae: conjunctivae normal Neck Neck: full ROM and supple Chest Chest: normal inspection of the chest Resp Effort & Inspection: normal respiratory effort Auscultation: clear to auscultation bilaterally Cardio Rate: regular rate Rhythm: regular rhythm Heart Sounds: no murmurs and no rubs GI Inspection: normal to inspection Palpation: soft, nontender and other (non distended) Auscultation: normal bowel sounds Skin General skin exam: no rashes or lesions noted and other (pink, warm, dry) Neuro General: patient alert, patient awake and patient oriented x3 Speech: speech normal Motor: other (GONSALEZ) Sensory Exam: no sensory deficits noted Extrem General: full ROM and pedal edema present Right upper extremity: wrist (FROM, NTP) and hand (swollen posteriorly, not hot to touch, vaguely red, pain w/extension) Details: normal capillary refill and neuromotor exam normal (NVI distally) Psych Mental Status: mental status grossly normal Speech and Movement: speech and movement normal Affect: normal affect Course Vital Signs Vital signs: Vital Signs Temperature 36.5 C 05/31/23 07:01 Pulse 59 L 05/31/23 07:01 Respiratory Rate 20 05/31/23 07:01 Blood Pressure 106/59 L 05/31/23 07:01 Pulse Oximetry 95 05/31/23 07:01 Temperature 36.5 C 05/31/23 07:01 Temperature Source Skin 05/31/23 07:01 Pulse 59 L 05/31/23 07:01 Respiratory Rate 20 05/31/23 07:01 Respiratory Effort Normal, Non-Labored 05/31/23 07:05 Blood Pressure 106/59 L 05/31/23 07:01 Blood Pressure Position Sitting 05/31/23 07:01 Pulse Oximetry 100 05/31/23 08:41 Oxygen Delivery Method Room Air 05/31/23 07:01 Oxygen Flow Rate 0 05/31/23 07:01 Pain Level 10 05/31/23 07:01 Lab/Test Results Lab/Test Results: 05/31/23 07:06 Blood Blood Culture - Pending 05/31/23 07:06 Blood Blood Culture - Pending Sign Out Sign Out Data: Sign Out Comment: 42 yo with history of IVDA presents with spontaneous right hand pain and swelling. Labs, x-ray pending. [facility] Last updated by Didi Wiseman MD at 05/31/23 09:25
--- NOTE | 2023-05-31 09:15 | DI.RAD_ITS ---
Exam(s) XR HAND RT COMPLETE EXAM: XR HAND RT COMPLETE CLINICAL HISTORY: pain, swelling. TECHNIQUE: 2D digital imaging was performed. Three views. COMPARISON: No exams were available for comparison FINDINGS: BONES: No acute fracture is present. No bony destructive lesion is seen. JOINTS: No dislocation present. SOFT TISSUE: Swelling. No abnormal gas collection or foreign body. IMPRESSION: Soft tissue swelling. DATA REPOSITORY: RADIATION DOSE DELIVERED:
[2023-05-31 09:40] LABS: Lactate 0.6 mmol/L (0.6-1.4)
[2023-05-31 09:41] LABS: Abs Immature Grans 0.05 10^3/uL (0.0-0.06); Absolute Basophil Count 0.04 10^3/uL (0.0-0.2); Absolute Eosinophil Count 0.07 10^3/uL (0.0-0.7); Absolute Monocyte Count 0.92 10^3/uL (0.1-0.8); Basophils % 0.3; Eosinophils % 0.5; HCT 35.8 % (40.0-50.0); HGB 12.3 g/dL (13.5-17.5); Immature Grans % 0.4; Lymphocytes % 15.9; MCH 31.4 pg (27.0-33.0); MCHC 34.4 % (32.0-36.0); MCV 91 fL (80-95); MPV 9.2 fL (8.0-11.0); Neutrophils % 75.9; Platelet Count 295 10^3/uL (130-400); RBC 3.92 10^6/uL (4.36-5.78); RDW 12.6 % (11.8-14.1); RDW-SD 42.1 fL; WBC 13.11 10^3/uL (4.4-10.8)
[2023-05-31 09:44] LABS: Absolute Lymphocyte Count 2.08 10^3/uL (1.2-3.4); Absolute Neutrophil Count 9.95 10^3/uL (1.2-6.7)
[2023-05-31 10:13] LABS: ALT 16 U/L (16-63); AST 14 U/L (15-37); Albumin 3.4 g/dL (3.4-5.0); Alkaline Phosphatase 87 U/L (46-116); Anion Gap 7.3 mmol/L (3-11); BUN 15 mg/dL (7-18); Bilirubin, Total 0.5 mg/dL (0.2-1.0); CO2 28.7 mmol/L (21.0-32.0); Calcium 9.3 mg/dL (8.5-10.1); Chloride 102 mmol/L (98-107); Estimated GFR 94.59 (mL/min/1.73m2); Glucose 116 mg/dL (74-106); Magnesium 2.3 mg/dL (1.8-2.4); Potassium 3.3 mmol/L (3.5-5.1); Sodium 138 mmol/L (136-145); Total Protein 7.3 g/dL (6.4-8.2)
--- NOTE | 2023-05-31 10:53 | ED.PROG_ITS ---
Date of service: 05/31/23 Time of Service: 09:00 Medical Decision Making This patient was signed out to me; please see previous notes for H&P and initial eval. In brief, 47yo M with hx IVDU presenting with right hand pain and warmth, denies recent injections into that hand. Pending labs and XR. Labs reviewed as below, normal lactate, no actionable abnormlaities. XR independently reviewed, no displaced fracture on my view, agree with radiology read below. On my exam warmth to dorsal surface of right hand, no palpable abscess. Patient sleeping with HR in high 40's (was 50's while awake) and good O2 sat, arousable. Will treat with bactrim. Imaging Data Radiologic Study: Radiologist's impression: IMPRESSION: Soft tissue swelling Lab Data Lab results reviewed: Yes I reviewed the patient's lab results. Labs: 05/31/23 09:30 Blood Blood Culture - Pending 05/31/23 09:20 Blood Blood Culture - Pending Laboratory Tests Range/Units 05/31/23 05/31/23 05/31/23 09:20 09:20 09:30 WBC (4.4-10.8) 10^3/uL 13.11 H RBC (4.36-5.78) 10^6/uL 3.92 L Hgb (13.5-17.5) g/dL 12.3 L Hct (40.0-50.0) % 35.8 L MCV (80-95) fL 91 MCH (27.0-33.0) pg 31.4 MCHC (32.0-36.0) % 34.4 RDW (11.8-14.1) % 12.6 Plt Count (130-400) 10^3/uL 295 MPV (8.0-11.0) fL 9.2 Immature Gran % 0.4 Neutrophils % 75.9 Lymphocytes % 15.9 Monocytes % 7.0 Eosinophils % 0.5 Basophils % 0.3 Nucleated RBC % (0.0-0.3) % 0.0 Absolute Neutrophils (1.2-6.7) 10^3/uL 9.95 H Absolute Lymphocytes (1.2-3.4) 10^3/uL 2.08 Absolute Monocytes (0.1-0.8) 10^3/uL 0.92 H Absolute Eosinophils (0.0-0.7) 10^3/uL 0.07 Absolute Basophils (0.0-0.2) 10^3/uL 0.04 VBG Lactate (0.6-1.4) mmol/L 0.6 Sodium (136-145) mmol/L 138 Potassium (3.5-5.1) mmol/L 3.3 L Chloride (98-107) mmol/L 102 Carbon Dioxide (21.0-32.0) mmol/L 28.7 Anion Gap (3-11) mmol/L 7.3 BUN (7-18) mg/dL 15 Creatinine (0.70-1.30) mg/dL 1.0 Est GFR (CKD-EPI 2020) (mL/min/1.73m2) 94.59 Glucose (74-106) mg/dL 116 H Calcium (8.5-10.1) mg/dL 9.3 Magnesium (1.8-2.4) mg/dL 2.3 Total Bilirubin (0.2-1.0) mg/dL 0.5 AST (15-37) U/L 14 L ALT (16-63) U/L 16 Alkaline Phosphatase (46-116) U/L 87 Total Protein (6.4-8.2) g/dL 7.3 Albumin (3.4-5.0) g/dL 3.4 Sign Out Sign Out Data: Sign Out Comment: 42 yo with history of IVDA presents with spontaneous right hand pain and swelling. Labs, x-ray pending. [facility] Last updated by Didi Wiseman MD at 05/31/23 09:25 Discharge Plan Disposition Patient Disposition: Home Condition: Good Discharge Details Clinical Impression: Cellulitis Primary Care Provider: Unknown,Unknown ED Provider: Steph Williamson Home Meds and New Rx's Prescriptions: New sulfamethoxazole-trimethoprim [Bactrim DS] 800-160 mg tablet 1 tab PO BID Qty: 14 0RF No Action erythromycin 5 mg/gram (0.5 %) ointment 0.5 inch ophthalmic (eye) QID Qty: 3.5 0RF Patient Comments: pt states not using anymore Discharge Instructions Instructions: Cellulitis (ED) Additional Instructions: Call your PCP today to schedule a followup appointment within 5 days to follow up on your visit here. Return to the emergency department if your symptoms do not begin to improve within 48 hours, or if you develop new or worsening symptoms including fever, worsening pain or swelling, or if you have any other concerns.
[2023-05-31] MEDS: Sulfameth/Trimeth DS TAB 1 TAB PO (11:26)
--- NOTE | 2023-06-01 09:07 | W.ED.FU ---
Date of service: 06/01/23 Time of Service: 09:08 Follow Up Plan: pt's blood culture growing gram positive cocci, tried to call the pt but number is not in service and no other numbers listed, will have care management attempt to find a way to reach the patient.
--- NOTE | 2023-06-01 09:58 | NUR.NOTE ---
Spoke with Pat Richardson Food Safety Specialist. Patient living address in system is [place] [address]. I called that number and it is not in service. Patients cell number in system is also not in service. Nursing Note:
== END 2023-05-31 11:51 | disposition home or self-care (01) ==
PROVIDERS: Emergency Medicine; Emergency Provider Student in an Organized Health Care Education/Training Program
DX: L03.113 Cellulitis of right upper limb (principal); F17.210 Nicotine dependence, cigarettes, uncomplicated
CPT/HCPCS: 36410; 80053; 87040; 87077; 99283; 73130; 83605; 83735; 85025; 87186; 99284

== ENCOUNTER → 2023-06-23 12:36 | Outpatient (CLI) | payer MEDICAID, SELFPAY ==
--- NOTE | 2023-06-23 13:44 | DI.RAD_ITS ---
Exam(s) XR HIP RT COMPLETE AP PELVIS EXAM: XR HIP RT COMPLETE AP PELVIS INDICATION: RT HIP PAIN M25.551 NONTRAUMATIC RT HIP PAIN. COMPARISON: No exams were available for comparison TECHNIQUE: 2D digital imaging was performed. Two views. FINDINGS: There is artifact secondary to overlying clothing. No evidence of fracture. No lytic or blastic lesion identified. The right hip joint space is maintained. There is mild spurring at the bilateral acetabulum and russell in of the femoral heads bilaterally. The SI joints and pubic symphysis are unremarkable. IMPRESSION: Mild degenerative changes. DATA REPOSITORY: RADIATION DOSE DELIVERED:
== END ==
PROVIDERS: Visit Provider Physician Assistant Medical
DX: M25.551 Pain in right hip (principal)
CPT/HCPCS: 73502

== ENCOUNTER 2024-01-15 10:59 | Inpatient (IN) | payer SELFPAY ==
[2024-01-15] VITALS (49 sets, daily range): BP systolic 97–150; BP diastolic 36–80; PULSE 39–79; RESP 9–16; TEMP 35.6–39; O2SAT 93–100; BMI 24.3
--- NOTE | 2024-01-15 11:15 | DI.CT_ITS ---
Exam(s) CT UPPER EXTREMITY LT W EXAM: CT UPPER EXTREMITY LT W CLINICAL HISTORY: IVDA with cellulitis and edema TECHNIQUE: Imaging Protocol: Axial computed tomography images with coronal and sagittal reformatted images were created and reviewed. CONTRAST MATERIAL: Intravenous: Omnipaque 350 Contrast volume:80 ml Contrast route:IV - COMPARISON: No exams were available for comparison FINDINGS: Bones: There is no evidence of fracture or dislocation. Bony alignment is satisfactory. No cellulitic or osteomyelitic changes are identified. There is no evidence of joint space narrowing or cystic degeneration seen. No lytic or sclerotic lesions are identified. Soft Tissues: Edema, greater posteriorly at the level of the forearm... No evidence of soft tissue gas. Anterior fluid collection versus abscess measuring 4.2 by 3.3 by by 4.7 cm in the antecubital f xavi. No air bubbles. IMPRESSION: Severe soft tissue edema/cellulitis. Fluid collection versus abscess in the antecubital fossa. No b brenda abnormalities. RADIATION DOSE DELIVERED: Total DLP DATA REPOSITORY: All CT scans at this facility are submitted to the National Radiology Data Registry (NRDR) Dose Index Registry (DIR) with the [employer] (A[employer]). RADIATION OPTIMIZATION: All CT scans at this facility use at least one of these dose optimization te chniques: automated exposure control; mA and/or kV adjustment per patient size (includes targeted exa ms where dose is matched to clinical indication); or iterative reconstruction.
[2024-01-15 11:59] LABS: Lactate 1.2 mmol/L (0.6-1.4)
[2024-01-15 12:03] LABS: Abs Immature Grans 0.13 10^3/uL (0.0-0.06); Absolute Basophil Count 0.04 10^3/uL (0.0-0.2); Absolute Monocyte Count 1.09 10^3/uL (0.1-0.8); Basophils % 0.2 %; Eosinophils % 0.3 %; HCT 30.4 % (40.0-50.0); HGB 10.2 g/dL (13.5-17.5); Immature Grans % 0.7 %; Lymphocytes % 5.6 %; MCH 30.5 pg (27.0-33.0); MCHC 33.6 % (32.0-36.0); MCV 91 fL (80-95); MPV 9.4 fL (8.0-11.0); Monocytes % 5.7 %; Neutrophils % 87.5 %; Platelet Count 267 10^3/uL (130-400); RBC 3.34 10^6/uL (4.36-5.78); RDW 13.3 % (11.8-14.1); RDW-SD 44.6 fL; WBC 19.08 10^3/uL (4.4-10.8)
[2024-01-15 12:04] LABS: Absolute Eosinophil Count 0.06 10^3/uL (0.0-0.7); Absolute Lymphocyte Count 1.07 10^3/uL (1.2-3.4)
[2024-01-15 12:05] LABS: ESR 62 mm/hr (0-15)
[2024-01-15 12:21] LABS: ALT 18 U/L (16-63); AST 22 U/L (15-37); Albumin 2.6 g/dL (3.4-5.0); Alkaline Phosphatase 89 U/L (46-116); Anion Gap 8.8 mmol/L (3-11); BUN 12 mg/dL (7-18); Bilirubin, Total 0.3 mg/dL (0.2-1.0); CO2 27.2 mmol/L (21.0-32.0); CREATININE 0.8 mg/dL (0.70-1.30); Calcium 8.2 mg/dL (8.5-10.1); Chloride 101 mmol/L (98-107); Estimated GFR 110.53 (mL/min/1.73m2); Glucose 136 mg/dL (74-106); Potassium 3.4 mmol/L (3.5-5.1); Sodium 137 mmol/L (136-145)
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
[2024-01-15] MEDS: Omnipaque 350 MG/ML 100 ML BTL IJ (12:48)
[2024-01-15] MEDS: Normal Saline Flush 10 ML SYR IVP ×2 (12:58→20:42)
--- NOTE | 2024-01-15 12:58 | DI.VRAD_ITS ---
PROCEDURE INFORMATION: Exam: CT Left Upper Extremity With Contrast Exam date and time: 01/15/2024 12:23 PM Age: 48 years old Clinical indication: Injury or trauma; Other: Ivda with cellulitis and edema TECHNIQUE: Imaging protocol: Computed tomography of the left upper extremity with contrast. Contrast material: OMNIPAQUE 350; Contrast volume: 80 ml; Contrast route: INTRAVENOUS (IV); COMPARISON: CT HEAD CERVICAL SPINE WO 03/28/2022 12:46 AM FINDINGS: Bones/joints: The humerus, radius and ulna are intact. No osteolysis. Soft tissues: Soft tissues edema/cellulitis. No soft tissue gas. Fluid collection present in the antecubital fossa measuring 4.1 x 2.7 cm. The fluid collection contains no air. IMPRESSION: 1. Soft tissue edema/cellulitis. Fluid collection in the antecubital fossa. cannot exclude abscess. Consider aspiration. 2. No evidence of osteomyelitis. Dictated and Authenticated by: Kevin Brown MD. Ordering:JEISON Jacob MD
[2024-01-15] MEDS: HYDROmorphone 2 MG/ML SYR 1 MG IM (12:59)
[2024-01-15] MEDS: VANCOMYCIN/WATER (PEG) 1.75 GM/350 ML BAG IVPB (13:34)
[2024-01-15] MEDS: Lidocaine 1% Multi-Dose W/EPI 1/100,000 50 ML VIAL (13:35)
--- NOTE | 2024-01-15 13:41 | ANES.PREOP_ITS ---
General Info Date of Service Date Performed: 01/15/24 Height: 5 ft 4 in Weight: 64.41 kg Body Mass Index (BMI): 24.3 Meds Allergies and Home Medications Allergies Allergy/AdvReac Type Severity Reaction Status Date / Time No Known Allergies Allergy Unverified 09/24/23 14:50 Home Medication Medication Instructions Recorded methadone 10 mg/mL oral concentrate 70 mg PO DAILY 08/20/17 acetaminophen 500 mg capsule 500 mg PO Q6H PRN pain #14 caps 07/19/18 cyclobenzaprine 10 mg tablet 10 mg PO TID PRN muscle spasm #14 07/19/18 tabs ibuprofen 600 mg tablet (IBU) 600 mg PO QID PRN pain #14 tabs 07/19/18 erythromycin 5 mg/gram (0.5 %) eye 0.5 inch ophthalmic (eye) QID #3.5 05/20/22 ointment grams sulfamethoxazole 800 1 tab PO BID #14 tabs 05/31/23 mg-trimethoprim 160 mg tablet (Bactrim DS) Current Visit Medications: Current Medications Generic Name Dose Route Start Last Admin Trade Name Freq PRN Reason Stop Dose Admin Sodium Chloride 1,000 mls @ 1,000 mls/hr 01/15/24 13:16 Saline 1000ml Bag IV 01/15/24 14:15 BOLUS ONE Vancomycin/PEG/NADA/Lysine/Water 1.75 gm in 350 mls @ 175 mls/hr 01/15/24 13:21 01/15/24 13:34 Vancocin Injection IVPB 01/15/24 15:20 175 mls/hr STAT STA Administration IV Miscellaneous Supplies 1 each 01/15/24 11:30 Iv Access IV DIRECTED RAINER Iohexol 100 ml 01/15/24 13:00 01/15/24 12:48 Omnipaque 350 Mg/Ml 100 Ml Btl IJ 02/14/24 23:59 100 ml DIRECTED RAINER Administration Sodium Chloride 50 ml 01/15/24 12:45 Normal Saline - Diluent 50 Ml Vial IV .FOR DI USE RAINER Sodium Chloride 0 ml 01/15/24 12:58 01/15/24 12:58 Normal Saline Flush 10 Ml Syr IVP 10 ml PRN PRN Administration PFSH Active Problems Active Problems: Problem Status Onset Code Respiratory failure J96.90 Hypomagnesemia E83.42 Leucocytosis D72.829 Suicide attempt T14.91XA DVT prophylaxis Discharge planning issues Z02.9 OD (overdose of drug) T50.901A Tobacco Smoking/Tobacco Use Status: Current every day Tobacco Type: cigarettes Smoking cigarettes per day: 10 Alcohol Alcohol Intake: current Alcohol intake frequency: holidays/special occasions only Substance Use Substance use: Daily Substance use type: marijuana, heroin and IV drugs Vital Signs and Lab Results Vital Signs Most Recent Vital Signs in EMR: Most Recent Vital Signs Temp Pulse Resp BP Pulse Ox 39.0 C H 49 L 10 L 98/50 L 97 01/15/24 11:05 01/15/24 13:06 01/15/24 13:06 01/15/24 13:06 01/15/24 13:06 Lab Results 01/15/24 11:49 01/15/24 11:49 Blood Type / Crossmatch: 2 No Data to Display Complete Blood Count: 2 White Blood Count 19.08 10^3/uL (4.4-10.8) H 01/15/24 11:49 Red Blood Count 3.34 10^6/uL (4.36-5.78) L 01/15/24 11:49 Hemoglobin 10.2 g/dL (13.5-17.5) L 01/15/24 11:49 Hematocrit 30.4 % (40.0-50.0) L 01/15/24 11:49 Platelet Count 267 10^3/uL (130-400) 01/15/24 11:49 Venous Blood Lactate 1.2 mmol/L (0.6-1.4) 01/15/24 11:49 Complete Metabolic Panel: 2 Sodium 137 mmol/L (136-145) 01/15/24 11:49 Potassium 3.4 mmol/L (3.5-5.1) L 01/15/24 11:49 Chloride 101 mmol/L (98-107) 01/15/24 11:49 Carbon Dioxide 27.2 mmol/L (21.0-32.0) 01/15/24 11:49 BUN 12 mg/dL (7-18) 01/15/24 11:49 Creatinine 0.8 mg/dL (0.70-1.30) 01/15/24 11:49 Est GFR (CKD-EPI 2020) 110.53 (mL/min/1.73m2) 01/15/24 11:49 Calcium 8.2 mg/dL (8.5-10.1) L 01/15/24 11:49 Albumin 2.6 g/dL (3.4-5.0) L 01/15/24 11:49 Glucose 136 mg/dL (74-106) H 01/15/24 11:49 C-Reactive Protein 20.40 mg/dL (<or=0.5) H 01/15/24 11:49 Liver Function Panel: 2 Alanine Aminotransferase (ALT/SGPT) 18 U/L (16-63) 01/15/24 11: 49 Aspartate Amino Transf (AST/SGOT) 22 U/L (15-37) 01/15/24 11:49 Coagulation Panel: 2 No Data to Display Cardiac Panel: 2 No Data to Display Arterial Blood Gas: 2 No Data to Display Venous Blood Gas: 2 No Data to Display Pancreas Panel: 2 No Data to Display Thyroid Panel: 2 No Data to Display Infectious Disease: 2 No Data to Display Blood Cultures: 2 No Data to Display Toxicology Panel: 2 No Data to Display Anesthesia Assessment and Plan Anesthesia History Personal History: No History of Anesthesia Complications Family History: No Family History of Anesthesia Complications Exercise Tolerance Exercise Tolerance: Metabolic Equivalents>4 Pertinent Negatives Pertinent Negatives: No Symptoms of GERD, No Major Cardiovascular Symptoms or Complaints, No Major Pulmonary Symptoms or Complaints and No History of CVA/TIA Cardiac & Pulmonary Exam Cardiac Exam: Normal S1/S2 Heart Sounds Pulmonary Exam: Clear Bilateral Breath Sounds Implantable Cardiac Device Does patient have a Pacemaker or an ICD?: No Airway Exam Known Difficult Airway: No Mallampati Class: 2 Mouth Opening: Normal (> 3cm) Thyromental Distance: Greater than 3 cm Neck Range of Motion: Full ROM Neck Circumference: Normal Teeth Condition: Generalized Poor Dentition ASA Classification ASA Score: ASA 2 Emergency Case?: No NPO Status NPO Status: NPO Clears >2 hours, Solids >8 hours Anesthesia Plan Resuscitation Status: Full Code Anesthesia Technique: General Anesthesia Airway Planned: Endotracheal Tube Monitors Used: Standard Monitors
--- NOTE | 2024-01-15 14:00 | RT.EKG_ITS ---
APPROVED REPORT Exam: Resting ECG Reason for Exam: bradycardia Patient Location: E HR:47 bpm ECG Measurements Heart Rate 47 AXIS CA 151 P 60 QRSd 90 QRS 65 QT 534 T 65 QTc 473 Conclusion Sinus bradycardia...rate< 60
--- NOTE | 2024-01-15 14:24 | NUR.NOTE ---
Pt O2 stats found to be falling into the low 80's. O2 applied via NC at 1L. Pt now stating in marcia 90's Nursing Note:
--- NOTE | 2024-01-15 14:31 | HPE_ITS ---
Date of service: 01/15/24 Time of Service: 14:42 Assessment and Plan Assessment and plan (1) Cellulitis and abscess of upper extremity: Status: Acute Assessment and plan: Patient will be taken the OR for I&D see risks under HPI. He may have to remove part of his baby being for thrombolysis. He will need to do packing and dressing changes. His housing situation is unclear at this moment we will consult case management Started on Vanco He will be admitted to the ICU for pain management. He is at high risk of eloping. He is a high risk of withdrawals (2) Hep C w/o coma, chronic: Status: Acute Assessment and plan: Labs and HIV pending as well as (3) MRSA cellulitis: Status: Acute (4) Fentanyl use disorder, severe, dependence: Status: Acute (5) Cocaine abuse: Status: Acute (6) IV drug abuse: Status: Acute (7) Tobacco abuse: Status: Acute (8) Hypomagnesemia: Status: Acute (9) Leucocytosis: Status: Acute History of Present Illness Narrative: Patient is a 48-year-old IVDA a with a left antecubital cellulitis/abscess possible thrombophlebitis. He is on methadone. He also still shoots up fentanyl. His last fentanyl use was at 11 AM today. He did take his methadone today. He also smoked crack pain at 10 AM today. He has a history of MRSA. He states there is no needle in his soft tissues. He does have hep C. He does not know his HIV status. He does not know if he is diabetic. He is not currently on any prescription medications/know if he is on any prescription medications. He is not very clear on his past medical history. Very poor IV access He has never had surgery or anesthesia before. He does not know if he is allergic to any medications. He denies any heart or lung problems. He presents to the ER today with left upper extremity cellulitis and abscess. He denies having any needles in place. He also has a nickel sized abscess on the dorsal surface of his right hand that is red and inflamed. He denies any other abscesses. There is multiple sites of injection on his body. Patient will be taken to the OR for incision and debridement. Possible removal of vein if there is thrombophlebitis. Risks include but not limited to: Bleeding, infection, pneumonia, blood clots. Complications of anesthesia including WV/CVA/. He will have a large open wound and need to do packing and dressing changes. He may lose sensation or function of the arm. Poor cosmesis. And loss of arm. Will need to remain in the hospital several days on IV antibiotics. He may go into withdrawals. He could from the subsequent infection. PFSH All Active Problems Cellulitis and abscess of upper extremity (Acute) Hep C w/o coma, chronic (Acute) MRSA cellulitis (Acute) Fentanyl use disorder, severe, dependence (Acute) Cocaine abuse (Acute) IV drug abuse (Acute) Tobacco abuse (Acute) Respiratory failure (Acute) Hypomagnesemia (Acute) Leucocytosis (Acute) Suicide attempt (Acute) DVT prophylaxis (Acute) Discharge planning issues (Acute) OD (overdose of drug) (Acute) Social History Smoking/Tobacco Use Status: Current every day Tobacco Type: cigarettes Smoking risk assessment performed?: Yes Alcohol Intake: current Alcohol Intake frequency: holidays/special occasions only Drug use: Daily Substance use type: marijuana, heroin and IV drugs Housing: apartment Do you feel safe at home: Yes Do you feel safe in your relationship?: Yes Meds Allergies and Home Medications Allergies Allergy/AdvReac Type Severity Reaction Status Date / Time No Known Allergies Allergy Unverified 09/24/23 14:50 Home Medications Medication Instructions Recorded Confirmed Type methadone 10 mg/mL oral concentrate 70 mg PO DAILY 08/20/17 07/19/18 History acetaminophen 500 mg capsule 500 mg PO Q6H PRN pain #14 caps 07/19/18 Rx cyclobenzaprine 10 mg tablet 10 mg PO TID PRN muscle spasm #14 07/19/18 Rx tabs ibuprofen 600 mg tablet (IBU) 600 mg PO QID PRN pain #14 tabs 07/19/18 Rx erythromycin 5 mg/gram (0.5 %) eye 0.5 inch ophthalmic (eye) QID #3.5 05/20/22 Rx ointment grams sulfamethoxazole 800 1 tab PO BID #14 tabs 05/31/23 Rx mg-trimethoprim 160 mg tablet (Bactrim DS) Exam Const General: in distress moderate and anxious Nutritional Appearance: malnourished Other: Lungs are clear to auscultation Heart is in regular rate and rhythm. Patient complains of severe pain on his left arm and says he cannot move his fingers. However he is moving them when not being observed directly. He has multiple areas of scarring and and varying degrees of healing injection sites about his whole body. He has an additional abscess on his right dorsum of his right hand. Results Labs 01/15/24 11:49 01/15/24 11:49 Labs: Laboratory Results - last 24 hr 01/15/24 11:49 WBC 19.08 H RBC 3.34 L Hgb 10.2 L Hct 30.4 L MCV 91 MCH 30.5 MCHC 33.6 RDW 13.3 Plt Count 267 MPV 9.4 Immature Gran % 0.7 Neutrophils % 87.5 Lymphocytes % 5.6 Monocytes % 5.7 Eosinophils % 0.3 Basophils % 0.2 Nucleated RBC % 0.0 Absolute Neutrophils 16.70 H Absolute Lymphocytes 1.07 L Absolute Monocytes 1.09 H Absolute Eosinophils 0.06 Absolute Basophils 0.04 ESR 62 H VBG Lactate 1.2 Sodium 137 Potassium 3.4 L Chloride 101 Carbon Dioxide 27.2 Anion Gap 8.8 BUN 12 Creatinine 0.8 Est GFR (CKD-EPI 2020) 110.53 Glucose 136 H Calcium 8.2 L Total Bilirubin 0.3 AST 22 ALT 18 Alkaline Phosphatase 89 C-Reactive Protein 20.40 H Total Protein 7.0 Albumin 2.6 L Last Vital Signs Temp 39.0 C H 01/15/24 11:05 Pulse 48 L 01/15/24 13:50 Resp 15 01/15/24 13:50 BP 98/50 L 01/15/24 13:06 Pulse Ox 100 01/15/24 13:50 Time Spent Time spent with Patient: 55-74 minutes Time was spent: preparing to see the patient(eg.review tests), obtaining and/or reviewing separately otained hiistory, ordering medications,tests, procedures, referring, communicating with other health palliative care nurse, indepentently interpreting results, counseling the patient and care coordination
--- NOTE | 2024-01-15 14:45 | ED.GENADUL_ITS ---
Discharge Plan Disposition Patient Disposition: Home Condition: Serious Discharge Details Clinical Impression: Cellulitis and abscess of upper extremity, Leucocytosis, IV drug abuse, Sepsis Primary Care Provider: Unknown,Unknown ED Provider: Nidia Pond Discharge Data Discharge Date/Time-TO BE ENTERED AT DEPARTURE: 01/15/24 14:57 HPI General Date/Time Provider Initiated Documentation: 01/15/24 11:23 . HPI Narrative: This 48-year-old male presents with report of abscess to left arm which started on Wednesday. Patient typically injects on this arm and last injected on Wednesday. Patient denies known fever but has had chills. He is on methadone chronically had his methadone dose of 90 mg this morning. He also injected fentanyl approximately 2 hours prior to arrival. He ate at approximately 11 AM today. He has a history of sepsis and infection secondary to IV drug abuse and he denies any other medical history. Related Data Home Medications Medication Instructions Recorded Confirmed methadone 10 mg/mL oral concentrate 70 mg PO DAILY 08/20/17 07/19/18 acetaminophen 500 mg capsule 500 mg PO Q6H PRN pain #14 caps 07/19/18 cyclobenzaprine 10 mg tablet 10 mg PO TID PRN muscle spasm #14 07/19/18 tabs ibuprofen 600 mg tablet (IBU) 600 mg PO QID PRN pain #14 tabs 07/19/18 erythromycin 5 mg/gram (0.5 %) eye 0.5 inch ophthalmic (eye) QID #3.5 05/20/22 ointment grams sulfamethoxazole 800 1 tab PO BID #14 tabs 05/31/23 mg-trimethoprim 160 mg tablet (Bactrim DS) Previous Rx's Medication Instructions Recorded acetaminophen 500 mg capsule 500 mg PO Q6H PRN pain #14 caps 07/19/18 cyclobenzaprine 10 mg tablet 10 mg PO TID PRN muscle spasm #14 07/19/18 tabs ibuprofen 600 mg tablet (IBU) 600 mg PO QID PRN pain #14 tabs 07/19/18 erythromycin 5 mg/gram (0.5 %) eye 0.5 inch ophthalmic (eye) QID #3.5 05/20/22 ointment grams sulfamethoxazole 800 1 tab PO BID #14 tabs 05/31/23 mg-trimethoprim 160 mg tablet (Bactrim DS) Allergies Allergy/AdvReac Type Severity Reaction Status Date / Time No Known Allergies Allergy Unverified 09/24/23 14:50 General Stated Complaint: RashLesion DON: 3 Exam Narrative Exam Narrative: Patient is alert and oriented 48-year-old male that has an obvious cellulitis with suspected abscess to his left AC, evidence of prior injection site without obvious fluctuance. Patient has a cellulitis extending from his mid forearm to wrist, circumferential without crepitus. He is neurovascularly intact on the left side. Patient is alert and oriented x 3 on initial assessment. He has no evidence of lymphangitis. He is in sinus tachycardia, lungs clear to ausculta tion bilaterally, pupils equal round reactive to light and accommodation, no abdominal tenderness, no drainage from site. Course Vital Signs Vital signs: Vital Signs Temperature 39.0 C H 01/15/24 11:05 Pulse 79 01/15/24 11:05 Respiratory Rate 15 01/15/24 11:05 Blood Pressure 116/60 01/15/24 11:05 Pulse Oximetry 93 01/15/24 11:05 Temperature 39.0 C H 01/15/24 11:05 Temperature Source Tympanic 01/15/24 11:05 Pulse 48 L 01/15/24 13:50 Pulse 50 L 01/15/24 13:06 Respiratory Rate 15 01/15/24 13:50 Respiratory Effort Normal 01/15/24 11:10 Blood Pressure 98/50 L 01/15/24 13:06 Blood Pressure Mean 65 01/15/24 13:06 Blood Pressure Position Sitting 01/15/24 11:05 Pulse Oximetry 100 01/15/24 13:50 Oxygen Delivery Method Room Air 01/15/24 13:50 Oxygen Flow Rate 0 01/15/24 13:50 Lab/Test Results Lab/Test Results: 01/15/24 11:49 Blood Blood Culture - Pending 01/15/24 11:52 Blood Blood Culture - Pending Laboratory Tests Range/Units 01/15/24 11:49 WBC (4.4-10.8) 10^3/uL 19.08 H RBC (4.36-5.78) 10^6/uL 3.34 L Hgb (13.5-17.5) g/dL 10.2 L Hct (40.0-50.0) % 30.4 L MCV (80-95) fL 91 MCH (27.0-33.0) pg 30.5 MCHC (32.0-36.0) % 33.6 RDW (11.8-14.1) % 13.3 Plt Count (130-400) 10^3/uL 267 MPV (8.0-11.0) fL 9.4 Immature Gran % % 0.7 Neutrophils % % 87.5 Lymphocytes % % 5.6 Monocytes % % 5.7 Eosinophils % % 0.3 Basophils % % 0.2 Nucleated RBC % (0.0-0.3) % 0.0 Absolute Neutrophils (1.2-6.7) 10^3/uL 16.70 H Absolute Lymphocytes (1.2-3.4) 10^3/uL 1.07 L Absolute Monocytes (0.1-0.8) 10^3/uL 1.09 H Absolute Eosinophils (0.0-0.7) 10^3/uL 0.06 Absolute Basophils (0.0-0.2) 10^3/uL 0.04 ESR (0-15) mm/hr 62 H VBG Lactate (0.6-1.4) mmol/L 1.2 Sodium (136-145) mmol/L 137 Potassium (3.5-5.1) mmol/L 3.4 L Chloride (98-107) mmol/L 101 Carbon Dioxide (21.0-32.0) mmol/L 27.2 Anion Gap (3-11) mmol/L 8.8 BUN (7-18) mg/dL 12 Creatinine (0.70-1.30) mg/dL 0.8 Est GFR (CKD-EPI 2020) (mL/min/1.73m2) 110.53 Glucose (74-106) mg/dL 136 H Calcium (8.5-10.1) mg/dL 8.2 L Total Bilirubin (0.2-1.0) mg/dL 0.3 AST (15-37) U/L 22 ALT (16-63) U/L 18 Alkaline Phosphatase (46-116) U/L 89 C-Reactive Protein (<or=0.5) mg/dL 20.40 H Total Protein (6.4-8.2) g/dL 7.0 Albumin (3.4-5.0) g/dL 2.6 L Medical Decision Making This 48-year-old male presents with report of abscess to left upper extremity, symptoms present since Wednesday of this week. Patient is alert and oriented, he has evidence of systemic illness with tachycardia and fever. Will administer Tylenol, fluids, Vanco, Zosyn. Will continue on telemetry monitoring. Patient did receive CT with IV contrast as we do not have ultrasound availability for further evaluation and abscess to the antecubital region, 2 x 4 cm. He did have infiltration of contrast during CT. Elevation and cool compresses applied and we have continue to observe without any evidence of tissue necrosis during this stay. He was in discomfort and is at risk for opiate withdrawal he did receive a milligram of Dilaudid IM while an additional IV was placed. Patient received Vanco and Zosyn. He is exhibiting bradycardia. This appears to be baseline for patient but EKG was ordered. I did speak with Dr. Villafana who will take patient to the OR, she did request an x-ray which unfortunately there was a delay in placement, this was ordered at 1445. CT without evidence of obvious foreign body per radiology interpretation my review, leukocytosis 19,000, CRP of 20, blood cultures pending, lactate within normal limits. Blood pressure 110/80 today at time of reassessment, has been n.p.o. throughout this visit. Pending OR for incision and drainage given complexity of abscess location. Quality:[facility] Health Related Social Needs: No Data to Display Critical Care Time Critical Care Time Attestation: Approximately 35 minutes of critical care time secondary to IV antibiotics secondary to acute sepsis in the presence of abscess and antecubital space. Administration of IV fluid, diagnostic lab interpretation and review, CT interpretation review and virtual radiology interpretation, and review of [facility] prior diagnostic labs, and telemetry monitoring consultation. [facility] All Active Problems (Updated 01/15/24 @ 15:05 by ALEXA Ford) Sepsis (Acute) Cellulitis and abscess of upper extremity (Acute) Hep C w/o coma, chronic (Acute) MRSA cellulitis (Acute) Fentanyl use disorder, severe, dependence (Acute) Cocaine abuse (Acute) IV drug abuse (Acute) Tobacco abuse (Acute) Respiratory failure (Acute) Hypomagnesemia (Acute) Leucocytosis (Acute) Suicide attempt (Acute) DVT prophylaxis (Acute) Discharge planning issues (Acute) OD (overdose of drug) (Acute) Social History Smoking/Tobacco Use Status: Current every day Tobacco Type: cigarettes Smoking risk assessment performed?: Yes Alcohol Intake: current Alcohol Intake frequency: holidays/special occasions only Drug use: Daily Substance use type: marijuana, heroin and IV drugs Housing: apartment Do you feel safe at home: Yes Do you feel safe in your relationship?: Yes
[2024-01-15] MEDS: Lactated Ringers 1,000 ML 30 ML IV (15:09)
--- NOTE | 2024-01-15 15:24 | DI.VRAD_ITS ---
PROCEDURE INFORMATION: Exam: XR Left Elbow Exam date and time: 01/15/2024 3:05 PM Age: 48 years old Clinical indication: Injury or trauma; Other: Foreign body; Injury date: 01/15/24 TECHNIQUE: Imaging protocol: Radiologic exam of the left elbow. Views: 1 or 2 views. COMPARISON: CT UPPER EXTREMITY LT W 01/15/2024 12:23 PM FINDINGS: Bones/joints: Normal. Soft tissues: Soft tissue swelling. No radiopaque foreign bodies. No soft tissue gas. IMPRESSION: No fracture. Dictated and Authenticated by: Kevin Brown MD. Ordering:JEISON Jacob MD
--- NOTE | 2024-01-15 15:24 | DI.RAD_ITS ---
Exam(s) XR ELBOW LT LIMITED EXAM: XR ELBOW LT LIMITED CLINICAL HISTORY: fb. TECHNIQUE: 2D digital imaging was performed. Two views. COMPARISON: No exams were available for comparison FINDINGS: The AP view is limited. The patient was unable to straighten the elbow. BONES: No acute fracture is present. No bony destructive lesion is seen. Small spur at olecranon. JOINTS: The elbow is normally aligned. No joint effusion is seen. SOFT TISSUE: Marked swelling. No soft tissue air or foreign body. IMPRESSION: Soft tissue swelling. No fracture is visualized. DATA REPOSITORY: RADIATION DOSE DELIVERED:
[2024-01-15] MEDS: Ketorolac 15 MG/ML VIAL IVP (17:15)
[2024-01-15] MEDS: Acetaminophen 500 MG TAB 1000 MG PO (17:15)
[2024-01-15] MEDS: Normal Saline 1,000 ML 75 ML IV (17:43)
--- NOTE | 2024-01-15 18:21 | W.PC.ACHO ---
Registration Status: ADM IN Primary Language: Preferred Language: Turkmen ED Information & Data Chief Complaint RashLesion 01/15/24 14:50 Other Complaint Fever 01/15/24 11:05 Triage Note PT reports swelling, redness 01/15/24 11:05 , warmth on L arm. Abscess on R. wrist w/ red soniya in line toward his armpit. Noticed swelling/redness this morning. PT febrile. Most Recent Vital Signs Temperature 35.6 C L 01/15/24 16:50 Temperature Source Temporal Artery Scan 01/15/24 16:50 Pulse 40 L 01/15/24 17:41 Pulse 40 L 01/15/24 17:41 Respiratory Rate 16 01/15/24 17:41 Respiratory Effort Labored, Grunting 01/15/24 16:50 Respiratory Depth Deep 01/15/24 16:50 Respiratory Pattern Bradypnea 01/15/24 16:50 Blood Pressure 115/54 L 01/15/24 17:41 Blood Pressure Mean 72 01/15/24 17:41 Blood Pressure Position Supine 01/15/24 16:50 Pulse Oximetry 97 01/15/24 17:41 Respiratory End-tidal CO2 33 01/15/24 17:41 Oxygen Delivery Method Room Air 01/15/24 16:50 Oxygen Flow Rate 0 01/15/24 16:50 Allergies No Known Allergies Allergy (Unverified 09/24/23 14:50) Active Medications Generic Name Dose Route Start Last Admin Trade Name Freq PRN Reason Stop Dose Admin Acetaminophen 1,000 mg 01/15/24 18:00 01/15/24 17:15 Acetaminophen 500 Mg Tab PO 02/14/24 17:59 1,000 mg Q6H RAINER Administration Ringer's Solution 1,000 mls @ 30 mls/hr 01/15/24 16:00 01/15/24 17:44 IV 02/14/24 15:59 Infused INFUSION RAINER Infusion Sodium Chloride 1,000 mls @ 75 mls/hr 01/15/24 16:45 01/15/24 17:43 Saline 1000ml Bag IV 02/14/24 16:44 75 mls/hr INFUSION RAINER Administration Iohexol 100 ml 01/15/24 13:00 01/15/24 12:48 Omnipaque 350 Mg/Ml 100 Ml Btl IJ 02/14/24 23:59 100 ml DIRECTED RAINER Administration Ketorolac Tromethamine 15 mg 01/15/24 18:00 01/15/24 17:15 Ketorolac 15 Mg/Ml Vial IVP 01/20/24 17:59 15 mg Q6H RAINER Administration Sodium Chloride 0 ml 01/15/24 12:58 01/15/24 12:58 Normal Saline Flush 10 Ml Syr IVP 10 ml PRN PRN Administration IV IV Catheter Type [Right Upper Peripheral IV arm] IV Catheter Type [Right Peripheral IV Forearm] IV Catheter Gauge [Right Upper 18 arm] IV Catheter Gauge [Right 18 Forearm] Diet Orders Category Date Time Status Nothing Per Oral [DIET] Nutrition 01/16/24 Breakfast Ordered Regular/Normal [DIET] Nutrition 01/15/24 Dinner Active Diagnostics 01/15/24 01/15/24 01/15/24 Range/Units Unknown 14:14 11:49 WBC 19.08 H (4.4-10.8) 10^3/uL RBC 3.34 L (4.36-5.78) 10^6/uL Hgb 10.2 L (13.5-17.5) g/dL Hct 30.4 L (40.0-50.0) % MCV 91 (80-95) fL MCH 30.5 (27.0-33.0) pg MCHC 33.6 (32.0-36.0) % RDW 13.3 (11.8-14.1) % Plt Count 267 (130-400) 10^3/uL MPV 9.4 (8.0-11.0) fL Immature Gran % 0.7 % Neutrophils % 87.5 % Lymphocytes % 5.6 % Monocytes % 5.7 % Eosinophils % 0.3 % Basophils % 0.2 % Nucleated RBC % 0.0 (0.0-0.3) % Absolute Neutrophils 16.70 H (1.2-6.7) 10^3/uL Absolute Lymphocytes 1.07 L (1.2-3.4) 10^3/uL Absolute Monocytes 1.09 H (0.1-0.8) 10^3/uL Absolute Eosinophils 0.06 (0.0-0.7) 10^3/uL Absolute Basophils 0.04 (0.0-0.2) 10^3/uL ESR 62 H (0-15) mm/hr VBG Lactate 1.2 (0.6-1.4) mmol/L Sodium 137 (136-145) mmol/L Potassium 3.4 L (3.5-5.1) mmol/L Chloride 101 (98-107) mmol/L Carbon Dioxide 27.2 (21.0-32.0) mmol/L Anion Gap 8.8 (3-11) mmol/L BUN 12 (7-18) mg/dL Creatinine 0.8 (0.70-1.30) mg/dL Est GFR (CKD-EPI 2020) 110.53 (mL/min/1.73m2) Glucose 136 H (74-106) mg/dL Hemoglobin A1c Pending Calcium 8.2 L (8.5-10.1) mg/dL Total Bilirubin 0.3 (0.2-1.0) mg/dL AST 22 (15-37) U/L ALT 18 (16-63) U/L Alkaline Phosphatase 89 (46-116) U/L C-Reactive Protein 20.40 H (<or=0.5) mg/dL Total Protein 7.0 (6.4-8.2) g/dL Albumin 2.6 L (3.4-5.0) g/dL Hepatitis A IgM Ab Pending Hep Bs Antigen Pending Hep B Core Total Ab Pending Hepatitis C Antibody Pending Pending HIV 1&2 Ag/Ab, 4th Gen Pending HIV 1&2 Antibody Rapid Pending 01/15/24 15:43 Surgical Culture - Pending Arm - Left Upper Gram Stain - Final 01/15/24 15:43 Anaerobic Culture - Pending Arm - Left Upper 01/15/24 11:49 Blood Culture - Pending Blood 01/15/24 11:52 Blood Culture - Pending Blood Intake and Output - 24 Hour Total 01/15/24 10:59 thru 01/15/24 17:44 Intake Total 427.5 Output Total 600 Balance -172.5 Weight 59.8 kg Intake: IV 427.5 Output: Urine 600 Other: Urine Color Pale Yellow Urine Appearance Clear Voiding Methods Urinal Falls Risk Assessment History of Falls Previous History 01/15/24 16:50 Contributing Factors Medications 01/15/24 16:50 Ambulatory Aids Independent 01/15/24 16:50 Tubes/Lines W/no contributing factors 01/15/24 16:50 Gait Evaluation No gait disturbance 01/15/24 16:50 Cognition Cognitive impairment 01/15/24 16:50 Fall Total Score 43 01/15/24 16:50 Level of Risk Moderate Risk 01/15/24 16:50 Problems (Last Reviewed 01/15/24 @ 14:36 by Laura Villafana DO) Cellulitis and abscess of upper extremity (Acute) Hep C w/o coma, chronic (Acute) MRSA cellulitis (Acute) Fentanyl use disorder, severe, dependence (Acute) Cocaine abuse (Acute) IV drug abuse (Acute) Tobacco abuse (Acute) Hypomagnesemia (Acute) Leucocytosis (Acute) Notes 01/15/24 14:24 Nursing Notes by Heather Ayala Pt O2 stats found to be falling into the low 80's. O2 applied via NC at 1L. Pt now stating in marcia 90's Nursing Note: Initialized on 01/15/24 14:24 - END OF NOTE 01/15/24 12:43 Nursing Notes by Heather Ayala Pt back from DI, in considerible disstress holding R arm and c/o pain 06/22. IV site found to be hard to the touch and pt c/o burning and tightness IV removed at this time and warm compress applied to area. Provider aware. Nursing Note: Initialized on 01/15/24 12:43 - END OF NOTE v v v v v v v v v Sending and/or Receiving Nurses: Please use comment section below to note any information pertinent to the patient hand-off not included above. Information / Comments: Report received from: Teryr Morris RN All questions answered
--- NOTE | 2024-01-15 18:58 | ROE_ITS ---
Date of service: 01/15/24 Time of Service: 16:00 Operative Note Operative Note DATE OF PROCEDURE: 01/15/24 PRE-OP DIAGNOSIS: cellulitis/abscess/thrombophlebitis L arm 2 to IVDA/small abscess dorsum of right hand POST-OP DIAGNOSIS: same (plus fsacitis) PROCEDURE: incision adn drainage abscess/excision of brachial vein of antecubital fossa of left arm SURGEON: Laura Villafana SOLE SCRAPER: Sophia Pardo ANESTHESIA TYPE: Local By Surgeon and General LMA/ETT Refer to Anesthesia Record ESTIMATED BLOOD LOSS: 30 PATHOLOGY: other COMPLICATIONS: None Patient was transported to: ICU Patient's condition: stable Procedure Description: Patient is being brought to the OR for incision and drainage of an abscess and excision of an infected vein secondary to IVDA. Informed consent is obtained explaining risks and benefits of the procedure including but not limited to: Bleeding, infection, pneumonia, blood clots, chronic pain or chronic numbness of the arm, loss of motor or sensory function, loss of arm, disfigurement scarring, he will need to do packing and dressing changes. Complications of anesthesia. Loss of arm. Anesthesia is administered per the department of anesthesia. Patient did use cocaine and fentanyl today. The abscess the left arm is attended to first. This is prepped and draped in the usual sterile sterile fashion using a Betadine scrub solution. Timeout is performed. He did receive preop IV antibiotics in the ER. The target area was infiltrated with 20 cc of 1% lidocaine with epi. a 3 inch incision was made across the upper arm through the antecubital fossa and up and down the arm. The infected skin over the area of injection into the basilic vein is excised. Electrocautery used to provide hemostasis. There is a large area of purulent material that is encountered. This cavity is approximately 4 x 3 x 3 inches. Cultures are taken. It does appear that the fascia is involved. There is a couple areas where there is some spotty necrosis of the of muscle may be a millimeter by millimeter, In 3 or 4 places. This area is debrided. Curette is used to sharply excise all necrotic tissue. The planes between the muscle bellies are opened and explored. 95% or better of the muscle does appear to be viable. The basilic vein is identified and isolated. Proximal and distal co ntrol is achieved. About 2 inch segment is excised. The proximal and distal ends are tied off with silk. The wound was irrigated with 2 L of saline. No bleeding is noted. Saline soaked Kerlix is then packed in between the muscle bowel bellies and into the wound. Sterile compression dressings are applied. We will plan a second look in the a.m./dressing change under anesthesia. The right hand is attended to next. And the wound in question is prepped with and with Betadine and injected with 10 cc of 1% lidocaine with epi. This area is approximately half inch by half an inch. This is open using an 15 blade. There is minimal purulence. It is mostly just indurated tissue. This is irrigated and covered with a compression dressing. He did have infiltration of IV contrast into the right arm. Prior to surgery and being seen in the ER he did not have a palpable pulse right and the right hand was cooler than the left hand. He did have a weak radial pulse on ultrasound. The arm was elevated throughout the course of the case. He still had delayed but present capillary refill. By the end of the case the tissues in the forearm feel softer and more pliable. And there is a weak but palpable pulse by the end of the case.
[2024-01-15] MEDS: FAMOTIDINE 20 MG in Normal Saline 100 ML 400 MG IVPB (20:40)
[2024-01-15] MEDS: Enoxaparin 40 MG/0.4 ML SYR SC (20:41)
[2024-01-15] MEDS: Docusate Sodium 100 MG CAP PO (20:42)
[2024-01-15] MEDS: Gabapentin 300 MG CAP 600 MG PO (20:42)
[2024-01-15] MEDS: Lactobacillus Acidophilus CAP 1 CAP PO (20:55)
[2024-01-15 22:14] LABS: Hemoglobin A1C 5.7 % (<5.7)
[2024-01-15 22:37] LABS: HIV 1/2 Ab Rapid Negative (Negative)
[2024-01-16] VITALS (46 sets, daily range): BP systolic 93–142; BP diastolic 40–82; PULSE 38–54; RESP 7–19; TEMP 35.6–36.6; O2SAT 95–100
[2024-01-16] MEDS: Ketorolac 15 MG/ML VIAL IVP ×3 (01:51→21:23)
[2024-01-16] MEDS: Normal Saline Flush 10 ML SYR IVP ×4 (01:51→17:55)
[2024-01-16] MEDS: Normal Saline 1,000 ML 75 ML IV (06:28)
[2024-01-16 06:51] LABS: Basophils % 0.1 %; HCT 29.2 % (40.0-50.0); HGB 9.7 g/dL (13.5-17.5); Immature Grans % 0.7 %; Lymphocytes % 7.6 %; MCH 30.4 pg (27.0-33.0); MCHC 33.2 % (32.0-36.0); MCV 92 fL (80-95); MPV 9.9 fL (8.0-11.0); Monocytes % 3.6 %; Platelet Count 266 10^3/uL (130-400); RBC 3.19 10^6/uL (4.36-5.78); RDW 13.7 % (11.8-14.1); RDW-SD 46.5 fL
[2024-01-16 06:54] LABS: Absolute Basophil Count 0.01 10^3/uL (0.0-0.2); Absolute Lymphocyte Count 1.12 10^3/uL (1.2-3.4); Absolute Monocyte Count 0.53 10^3/uL (0.1-0.8); Absolute Neutrophil Count 13.02 10^3/uL (1.2-6.7)
[2024-01-16 07:24] LABS: Anion Gap 6.5 mmol/L (3-11); BUN 12 mg/dL (7-18); C-Reactive Protein 17.94 mg/dL (<or=0.5); CO2 27.5 mmol/L (21.0-32.0); CREATININE 0.8 mg/dL (0.70-1.30); Calcium 8.1 mg/dL (8.5-10.1); Chloride 108 mmol/L (98-107); Estimated GFR 110.53 (mL/min/1.73m2); Glucose 144 mg/dL (74-106); Potassium 3.6 mmol/L (3.5-5.1); Sodium 142 mmol/L (136-145)
--- NOTE | 2024-01-16 08:26 | PDOC.CMIN ---
Date of service: 01/16/24 Time of Service: 08:26 Care Management Initial Assmt Initial Assessment REASON FOR HOSPITALIZATION:: cellulitis with abscess PREVIOUS FUNCTIONAL STATUS/SOCIAL/FAMILY SUPPORTS:: Prabha lives in an apartment in [place] [facility] with his girlfriend. He has 2 sons; his 26 year old son lives in [place] and his 5 year old lives in [place]. He sees and communicates regularly with his younger son but, due to distance, does not see his older son much. 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 He does not receive any community services and is independent with ADLs and IADLs. CURRENT FUNCTIONAL STATUS:: Prabha was sitting up in bed when CM met with him. He was still a little sleepy as he went to the OR again this morning, however he was pleasant and cooperative. Prabha does not have any health care insurance and will not have any income for the next few weeks. He is concerned about how he will meet his financial obligations such as food, rent, phone bills etc. CM informed him that a referral will be sent to [facility] for insurance and for counseling about any available financial supports. 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 ADVANCE DIRECTIVES:: none Has patient been provided with info about the portal/API?: Yes Did the patient sign up for the portal?: No CODE STATUS:: Full Code INSURANCE COVERAGE / FINANCIAL ISSUES:: Medicaid CURRENT HOME/COMMUNITY SERVICES/EQUIPMENT:: methadone maintenance through [facility] PRIMARY CARE PHYSICIAN:: sees a provider at [facility], not sure of the name POTENTIAL DISCHARGE NEEDS:: establish with PCP PATIENT/FAMILY EDUCATION NEEDS:: Review of discharge instructions, activity, limitations, follow up plan, discuss Ask Me Three TRANSPORTATION:: via private vehicle vs RCT PLAN:: Anticipate Prabha will be discharged home with new home health services for wound care. He will follow up with his surgeon and plan of care and transport via private vehicle vs RCT. CM will continue to assess for and support discharge planning needs. PFSH All Active Problems (Updated 01/16/24 @ 11:52 by Laura Villafana DO) Alcoholic (Acute) Tetrahydrocannabinol (THC) use disorder, moderate, dependence (Acute) Does not have health insurance (Acute) Homeless single person (Acute) Sepsis (Acute) Cellulitis and abscess of upper extremity (Acute) Hep C w/o coma, chronic (Acute) MRSA cellulitis (Acute) Fentanyl use disorder, severe, dependence (Acute) Cocaine abuse (Acute) IV drug abuse (Acute) Tobacco abuse (Acute) Hypomagnesemia (Acute) Leucocytosis (Acute) DVT prophylaxis (Acute) Discharge planning issues (Acute) Medical History (Updated 01/16/24 @ 11:52 by Laura Villafana DO) OD (overdose of drug) Respiratory failure Suicide attempt Social History Smoking/Tobacco Use Status: Current every day Tobacco Type: cigarettes Smoking risk assessment performed?: Yes Alcohol Intake: current Alcohol Intake frequency: holidays/special occasions only Drug use: Daily Substance use type: marijuana, heroin and IV drugs Housing: apartment Do you feel safe at home: Yes Do you feel safe in your relationship?: Yes SDOH(Care Management) Screening Will the Patient Participate in the Screening?: Yes Do you worry about having a steady place to live?: yes In the past 12 months, have you had to go without electric, gas, oil or water in your home?: no Have you or anyone in your house had to go without enough food to eat?: no Has lack of transportation kept you from medical appointments or from doing things needed for daily living?: yes Has anyone in your support network made you feel unsafe for any reason?: no Health Related Social Needs Health related social needs: housing instability, housed, with risk of homelessness(Z59.811) and transportation insecurity(Z59.82)
[2024-01-16] MEDS: FAMOTIDINE 20 MG in Normal Saline 100 ML 400 MG IVPB (08:42)
[2024-01-16] MEDS: Gabapentin 300 MG CAP 600 MG PO ×3 (08:42→19:21)
[2024-01-16] MEDS: Docusate Sodium 100 MG CAP PO ×3 (08:43→19:22)
[2024-01-16] MEDS: Lactobacillus Acidophilus CAP 1 CAP PO ×3 (08:43→19:22)
[2024-01-16] MEDS: VANCOMYCIN/WATER (PEG) 1.75 GM/350 ML BAG IVPB (09:12)
[2024-01-16] MEDS: MEROPENEM 1 GM in Normal Saline 100 ML IVPB ×2 (09:14→17:53)
--- NOTE | 2024-01-16 10:36 | W.PM.OP ---
Date of service: 01/16/24 Time of Service: 10:36 Operative Note Operative Note DATE OF PROCEDURE: 01/15/24 PRE-OP DIAGNOSIS: IVDA induced thrombophleibitis/ arm abscess/cellulitis /fascitis POST-OP DIAGNOSIS: same (plus fsacitis) PROCEDURE: dressing change under anethesia adn re-visialization of the muscle SURGEON: Laura Villafana ANESTHESIA TYPE: General:No Airway Refer to Anesthesia Record ESTIMATED BLOOD LOSS: 30 PATHOLOGY: none sent COMPLICATIONS: None Patient was transported to: ICU Patient's condition: stable Procedure Description: Patient is being brought back today for second look evaluation the muscle and dressing change under anesthesia. Informed consent is obtained explaining risks and benefits of the procedure including not limited to complications of anesthesia/bleeding/infection/pneumonia/blood clots/loss of motor or sensory components/scarring and disfigurement/loss of function/need to heal by secondary intent and do daily dressing changes and other unfruitful complications. Patient brought back to the operative room suite placed in the supine position. Anesthesia was administered per the department of anesthesia. The wound on his right arm is checked first. The redness and drainage in this area has gone down. Bandages placed. The left arm is attended to next. Dressings and packing is removed. The muscle edges all appear viable. Skin is viable and there is nothing that needs to be debrided. It is repacked with wet-to-dry dressings and wrapped in ABDs and Curlex and Arnol wrap's. Patient tolerated the procedure well without complication and transferred recovery room in stable condition.
--- NOTE | 2024-01-16 10:38 | W.PM.PROGNOT ---
Date of Service Date of service: 01/16/24 Time of Service: 09:30 Assessment and Plan Assessment and plan (1) IV drug abuse: Status: Acute (2) Cocaine abuse: Status: Acute (3) Fentanyl use disorder, severe, dependence: Status: Acute (4) Hep C w/o coma, chronic: Status: Acute (5) Hypomagnesemia: Status: Acute (6) Leucocytosis: Status: Acute (7) MRSA cellulitis: Status: Acute (8) Cellulitis and abscess of upper extremity: Status: Acute Assessment and plan: - 2 OR for dressing change under anesthesia today and second look at muscles to ensure viability -Wet-to-dry dressing changes -It is unclear if patient is still at [facility] and receiving services. We will need to contact him tomorrow to see if he is truly getting methadone. Patient has a history of polysubstance use/abuse. We will continue to monitor him for withdrawals Adequate pain relief Treatment of infection. He is currently on meropenem and vancomycin. Cultures are pending.. He does have a history of MRSA Patient is currently homeless and has no insurance which will be difficult to adequately treat his wound. OT in a.m. I did discuss the patient's care with care management. His lack of insurance/homelessness/drug abuse will be a massive detriment to getting him any type of wound care and antibiotics outside of the hospital This document was created with voice activated software and may contain errors. Supportive care (9) Sepsis: Status: Acute (10) Tobacco abuse: Status: Acute (11) Discharge planning issues: Status: Acute (12) DVT prophylaxis: Status: Acute (13) Homeless single person: Status: Acute (14) Does not have health insurance: Status: Acute (15) Tetrahydrocannabinol (THC) use disorder, moderate, dependence: Status: Acute (16) Alcoholic: Status: Acute Subjective Subjective Interval history since last seen: Pt is doing well. no headaches. No CP or SOB. no productive cough. no dysuria. no leg pain or swelling. Patient did not require any Dilaudid overnight. Nursing notes that patient had a whitish powder substance wrapped in wax paper and aluminum foil that they discovered on the patient's person. He has been apparently taking this all night and definitely this morning. His heart rate has been been noted to be low and almost bradycardic. Patient is pleasant and cooperative today. His right hand and arm: The swelling has gone down significantly. He is able to move all fingers and has good sensation. He has good palpable radial pulses. Left arm/hand: Fingers are still swollen addendum edematous as is arm. He is able to move all fingers and wrist independently and is good sensory and motor functioning. Objective Last Vital Signs Temp 35.6 C L 01/16/24 07:30 Pulse 41 L 01/16/24 09:01 Resp 19 01/16/24 09:47 BP 125/55 L 01/16/24 09:47 Pulse Ox 99 01/16/24 09:47 Laboratory Results - last 24 hr 01/15/24 01/15/24 01/16/24 11:49 21:55 05:56 WBC 19.08 H 14.80 H RBC 3.34 L 3.19 L Hgb 10.2 L 9.7 L Hct 30.4 L 29.2 L MCV 91 92 MCH 30.5 30.4 MCHC 33.6 33.2 RDW 13.3 13.7 Plt Count 267 266 MPV 9.4 9.9 Immature Gran % 0.7 0.7 Neutrophils % 87.5 88.0 Lymphocytes % 5.6 7.6 Monocytes % 5.7 3.6 Eosinophils % 0.3 0.0 Basophils % 0.2 0.1 Nucleated RBC % 0.0 0.0 Absolute Neutrophils 16.70 H 13.02 H Absolute Lymphocytes 1.07 L 1.12 L Absolute Monocytes 1.09 H 0.53 Absolute Eosinophils 0.06 0.00 Absolute Basophils 0.04 0.01 ESR 62 H VBG Lactate 1.2 Sodium 137 142 Potassium 3.4 L 3.6 Chloride 101 108 H Carbon Dioxide 27.2 27.5 Anion Gap 8.8 6.5 BUN 12 12 Creatinine 0.8 0.8 Est GFR (CKD-EPI 2020) 110.53 110.53 Glucose 136 H 144 H Hemoglobin A1c 5.7 Calcium 8.2 L 8.1 L Total Bilirubin 0.3 AST 22 ALT 18 Alkaline Phosphatase 89 C-Reactive Protein 20.40 H Cancelled Total Protein 7.0 Albumin 2.6 L HIV 1&2 Antibody Rapid Negative 01/16/24 05:56 WBC RBC Hgb Hct MCV MCH MCHC RDW Plt Count MPV Immature Gran % Neutrophils % Lymphocytes % Monocytes % Eosinophils % Basophils % Nucleated RBC % Absolute Neutrophils Absolute Lymphocytes Absolute Monocytes Absolute Eosinophils Absolute Basophils ESR VBG Lactate Sodium Potassium Chloride Carbon Dioxide Anion Gap BUN Creatinine Est GFR (CKD-EPI 2020) Glucose Hemoglobin A1c Calcium Total Bilirubin AST ALT Alkaline Phosphatase C-Reactive Protein 17.94 H Total Protein Albumin HIV 1&2 Antibody Rapid Time Spent with Patient Time Spent with Patient: 25-34 minutes Time was spent: preparing to see the patient(eg.review tests), obtaining and/or reviewing separately otained hiistory, ordering medications,tests, procedures, referring, communicating with other health transitional care manager, indepentently interpreting results, counseling the patient and care coordination
--- NOTE | 2024-01-16 12:16 | PHA.REVIEW2 ---
Pharmacy Admission Review Admission Clinical Review Admission Pharmacy Review: Alcoholic (Acute) Tetrahydrocannabinol (THC) use disorder, moderate, dependence (Acute) Does not have health insurance (Acute) Homeless single person (Acute) Sepsis (Acute) Cellulitis and abscess of upper extremity (Acute) Hep C w/o coma, chronic (Acute) MRSA cellulitis (Acute) Fentanyl use disorder, severe, dependence (Acute) Cocaine abuse (Acute) IV drug abuse (Acute) Tobacco abuse (Acute) Hypomagnesemia (Acute) Leucocytosis (Acute) DVT prophylaxis (Acute) Discharge planning issues (Acute) No Known Allergies Allergy (Unverified 09/24/23 14:50) Resuscitation Status Full Code Height 5 ft 4 in Weight 59.4 kg Comments Comments/Follow Ups: Watch BP, HR, H/H, labs, for culture results and for med changes (avoid additional QTc prolonging meds pending QTc). Pharmacy Admission Review Renal Dosing Renal Dosing: BUN 12 mg/dL (7-18) 01/16/24 05:56 Creatinine 0.8 mg/dL (0.70-1.30) 01/16/24 05:56 Medications needing adjustments: Reviewed (Crcl ~96 mL/min current meds okay) Anticoagulation Anticoagulation: Hgb 9.7 g/dL (13.5-17.5) L 01/16/24 05:56 Hct 29.2 % (40.0-50.0) L 01/16/24 05:56 Plt Count 266 10^3/uL (130-400) 01/16/24 05:56 Creatinine 0.8 mg/dL (0.70-1.30) 01/16/24 05:56 DVT Prophylaxis: Reviewed Medications: Enoxaparin Opiate Usage Evaluate Pain Scale/Pains Meds: Reviewed Scheduled Bowel Reg ordered if on Opiates?: No (has PRN med ordered) Relevant Labs Relevant Labs: ESR 62 mm/hr (0-15) H 01/15/24 11:49 Sodium 142 mmol/L (136-145) 01/16/24 05:56 Potassium 3.6 mmol/L (3.5-5.1) 01/16/24 05:56 Chloride 108 mmol/L (98-107) H 01/16/24 05:56 C-Reactive Protein 17.94 mg/dL (<or=0.5) H 01/16/24 05:56 C-Reactive Protein Cancelled 01/16/24 05:56 Electrolytes, C-Reactive P, ESR: Reviewed DM Control DM Control: Glucose 144 mg/dL (74-106) H 01/16/24 05:56 Hemoglobin A1c 5.7 % (<5.7) 01/15/24 21:55 DM Control: N/A Cardiac Review BP, HR, EF%: Reviewed (BP and HR have been low so far this admission) QTc Review QTc: Reviewed (QTc 473 on admission. Nursing mentioned that the QTc had increased some since then and is being monitored on tele) IV to PO Switch IV Medications: Intervened (Famotidine changed from IV to PO per provider) Home Meds Home Med List reviewed: Reviewed ([facility] will need to be called tomorrow to verify methadone dosing as [facility] is closed today. The methadone dose on home med list, the dose mentioned in the patient comment for that home med and the dose taken yesterday are all different.) Relevent Home Meds Not ordered & why?: ibuprofen (pt has ketorolac ordered). Current Meds Current Medication Order Review: Intervened (Fixed multiple meds so PRN is in both the frequency and schedule of the orders so they will cross over to pyxis correctly. Talked to provider about antibiotics and dosing.) Pharmacy Antibiotic Review Relevant Labs: Relevant Labs 01/16/24 01/16/24 01/15/24 05:56 05:56 11:49 C-Reactive Protein 17.94 H Cancelled 20.40 H Pharmacy Antibiotic Activity: Abx regimen adjustment and C/S review Comments: Vanco and meropenem ordered. Blood cultures and one surgical culture pending, one surgical culture growing group A strep Comments Comments/Follow Ups: Watch BP, HR, H/H, labs, for culture results and for med changes (avoid additional QTc prolonging meds pending QTc).
--- NOTE | 2024-01-16 12:19 | W.ANESPOSTOP ---
Postoperative Evaluation Date, Time and Location Date Performed: 01/16/24 Time Performed: 11:15 Patient Location: Intensive Care Unit Vital Signs Most Recent Imported Vital Signs: Most Recent Vital Signs Temp Pulse Resp BP Pulse Ox 35.6 C L 40 L 11 L 119/50 L 96 01/16/24 07:30 01/16/24 11:01 01/16/24 11:01 01/16/24 11:01 01/16/24 11:01 Pain Score Most Recent Pain Score: Most Recent Pain Score Pain Level [Bilateral Arm] 0 01/15/24 20:35 Pain Level 0 01/16/24 1105 Assessment Mental Status: Awake (Alert & Oriented to Patient Baseline) Airway and Respiratory Function: Patent airway with normal (patient baseline) respiratory exam Cardiovascular Function: Hemodynamically Stable Hydration Status: Adequately Hydrated Nausea & Vomiting: No Nausea or Vomiting Pain: Pt. Denies Any Pain Peripheral Nerve Block: Patient did not receive a nerve block
[2024-01-16] MEDS: Acetaminophen 500 MG TAB 1000 MG PO ×3 (12:28→23:13)
[2024-01-16] MEDS: Normal Saline 500 ML 20 ML IV (17:53)
[2024-01-16 17:56] LABS: *AMPHETAMINES SCREEN URINE Negative (Negative); *BARBITURATES SCREEN URINE Negative (Negative); *BENZODIAZEPINES SCREEN URINE Positive (Negative); Cannabinoids THC Positive (Negative); Cocaine Screen,Urine Positive (Negative); METHADONE URINE SCREEN Positive (Negative); OPIATES URINE SCREEN Negative (Negative); Tricyclic Antidepressants Negative (Negative)
[2024-01-16] MEDS: Famotidine 20 MG TAB PO (19:22)
[2024-01-16] MEDS: Enoxaparin 40 MG/0.4 ML SYR SC (19:24)
[2024-01-16] MEDS: VANCOMYCIN/WATER (PEG) 1 GM/200 ML BAG IV (19:25)
--- NOTE | 2024-01-16 20:46 | NUR.NOTE ---
Nursing Note: 2030 Pt rang mae to [facility] nurse and stated that he wanted to go home. This nurse expressed the concern that if he went home he would lose all the investment of all he had been through today (trip to OR, being stuck in ICU all day getting started on antibiotics etc). Explained that antibiotics can help you feel much better once they start to kick in, but if you stop after only a few doses, the infection can come roaring back, and he could be right back to the situation that brought him in. This nurse also asked him if he is worried about developing withdrawal symptoms (he did not deny or endorse this) and explained that we can address that if the need arises. This nurse encouraged him to hold on at least until morning. Pt stated he would stay though the night.
[2024-01-16] MEDS: HYDROmorphone 2 MG/ML SYR 4 MG IVP (21:22)
[2024-01-17 00:01] VITALS: BP 121/60; PULSE 53; PULSE 56; RESP 17; O2SAT 98
[2024-01-17] MEDS: MEROPENEM 1 GM in Normal Saline 100 ML IVPB (01:19)
[2024-01-17 02:01] VITALS: BP 118/54; PULSE 43; RESP 12; O2SAT 98
[2024-01-17] MEDS: Ketorolac 15 MG/ML VIAL IVP (03:40)
[2024-01-17 04:02] VITALS: BP 121/59; PULSE 46; PULSE 50; RESP 16; TEMP 36.5; O2SAT 99
[2024-01-17 04:18] VITALS: BP 121/59; PULSE 46; RESP 13; TEMP 36.5; O2SAT 97
--- NOTE | 2024-01-17 04:48 | NUR.NOTE ---
Pt stating he needs to leave because he can't get ahold of his girlfriend. I advised pt of the risks of leaving AMA. He verbalized understanding of the risk and the benefit of staying under medical care. He was offered to call a welfare check on his significant other, which he declined. That is the driving force that is making him want to leave facility AMA> Pt reports if he can't get ahold of girlfriend by 0530 hours he will need to leave. I advised primary nurse as well as warehouse guard. Lines will be removed before pt can go and form signed if he chooses to go that route. He is currently in pt room, in bed resting comfortably. Needs met, but he is anxious per his statement because he is unable to reach girlfriend.
[2024-01-17 11:05] LABS: HIV-1/2 Ag & Ab Screen Negative (Negative)
[2024-01-17 13:08] LABS: Hepatitis A Antibody IgM Negative (Negative); Hepatitis B Core Antibody Positive (Negative); Hepatitis B surface Ag Negative (Negative); Hepatitis C Ab w Rflx HCV PCR Reactive (Negative)
[2024-01-18 16:36] LABS: HBc IgM Ab, S Negative (Negative)
[2024-01-19 16:49] LABS: HCV RNA Qualitative Undetected (Undetected)
== END 2024-01-17 05:30 | disposition left against medical advice (07) | DRG 854 ==
LOC: ER 14:07 → SUR 14:46 → ICU 16:45
PROVIDERS: Admitting Provider Surgery; Emergency Provider Physician Assistant; Visit Provider Surgery
PROC: 05BC0ZZ Excision of Left Basilic Vein, Open Approach (ICD-10-PCS; CPT 23930; principal; 2024-01-15 14:00)
PROC: 2W0 Placement, Anatomical Regions, Change (ICD-10-PCS; CPT 15852; principal; 2024-01-16 10:00)
DX: A41.9 Sepsis, unspecified organism; E46 Unspecified protein-calorie malnutrition; L03.114 Cellulitis of left upper limb; F11.20 Opioid dependence, uncomplicated; Z59.00 Homelessness unspecified; L02.414 Cutaneous abscess of left upper limb; I96 Gangrene, not elsewhere classified; B18.2 Chronic viral hepatitis C; B95.62 Methicillin resistant Staphylococcus aureus infection as the cause of diseases classified elsewhere; F14.10 Cocaine abuse, uncomplicated; F17.210 Nicotine dependence, cigarettes, uncomplicated; E83.42 Hypomagnesemia; D72.829 Elevated white blood cell count, unspecified; F10.20 Alcohol dependence, uncomplicated; F12.20 Cannabis dependence, uncomplicated; T80.89XA Other complications following infusion, transfusion and therapeutic injection, initial encounter; Z68.22 Body mass index [BMI] 22.0-22.9, adult; I80.8 Phlebitis and thrombophlebitis of other sites; M72.8 Other fibroblastic disorders
CPT/HCPCS: 23930; 10060; 15852; 36415; 80048; 80053; 80307; 85652; 86704; 86709; 86803; 87040; 87077; 87340; 87389; 87522; 93005; 96365; 96375; 99291; J1650; 73070; 73201; 83036; 83605; 85025; 86140; 86705; 87070; 87075; 87205; 93010; J0330; J1100; J1170; J1885; J2001; J2004; J2185; J2250; J2405; J2704; J3372; J3490

== ENCOUNTER 2024-02-26 11:05 | Emergency (ER) | payer SELFPAY ==
[2024-02-26 11:13] VITALS: BP 101/50; PULSE 60; RESP 16; TEMP 36.8; O2SAT 98
--- NOTE | 2024-02-27 08:31 | ED.GENADUL_ITS ---
Discharge Plan Disposition Patient Disposition: Home Discharge Details Clinical Impression: Wound disruption, post-op, skin Primary Care Provider: Unknown,Unknown ED Provider: Nidia Pond Discharge Instructions Additional Instructions: wash with soap and water daily apply bacitracin and massage lotion into skin site, 2-3 times daily return with spreading redness, fever, worsening pain Discharge Data Discharge Date/Time-TO BE ENTERED AT DEPARTURE: 02/26/24 11:51 HPI General Date/Time Provider Initiated Documentation: 02/26/24 11:47 . HPI Narrative: This 48-year-old male with history of polysubstance abuse/IV drug abuse presents with pain and tearing sensation to his left AC region. He had an abscess that w as incised and drained patient left early AGAINST MEDICAL ADVICE several weeks ago. He states he was pushing himself up in the truck bed when he felt a tearing sensation in the AC region. This happened today and he had no physical complaints prior to the episode. He has had full use of his arm denies any redness, swelling, discharge, fever since the episode occurred. He reports that he just wants to get checked out . Related Data Allergies Allergy/AdvReac Type Severity Reaction Status Date / Time No Known Allergies Allergy Unverified 02/26/24 11:17 General Stated Complaint: Vascular DON: 4 Exam Narrative Exam Narrative: Left AC with approximately 2 inch scar without erythema, fluctuance, or wound dehiscence, neurovascularly intact and range of motion intact Course Vital Signs Vital signs: Vital Signs Temperature 36.8 C 02/26/24 11:13 Pulse 60 02/26/24 11:13 Respiratory Rate 16 02/26/24 11:13 Blood Pressure 101/50 L 02/26/24 11:13 Pulse Oximetry 98 02/26/24 11:13 Temperature 36.8 C 02/26/24 11:13 Temperature Source Temporal Artery Scan 02/26/24 11:13 Pulse 60 02/26/24 11:13 Respiratory Rate 16 02/26/24 11:13 Respiratory Effort Normal, Non-Labored 02/26/24 11:16 Blood Pressure 101/50 L 02/26/24 11:13 Blood Pressure Position Sitting 02/26/24 11:13 Pulse Oximetry 98 02/26/24 11:13 Oxygen Delivery Method Room Air 02/26/24 11:13 Oxygen Flow Rate 0 02/26/24 11:13 Pain Level 4 02/26/24 11:18 Medical Decision Making 48-year-old male presenting for evaluation of left arm after incision and drainage. Has full use of arm without any visible evidence of trauma. Strength and sensation are intact, neurovascularly intact. Encouraged to apply bacitracin twice daily as patient does have large scar forming over area and encouraged to use sunscreen massage twice daily. Encouraged to continue with his reported sobriety. Return precautions reviewed and patient expressed understanding Quality:SDOH Health Related Social Needs: Health related social needs risk of homeless, transpo insecurity PFSH All Active Problems (Updated 02/26/24 @ 11:49 by ALEXA Ford) Wound disruption, post-op, skin (Acute) Alcoholic (Acute) Tetrahydrocannabinol (THC) use disorder, moderate, dependence (Acute) Does not have health insurance (Acute) Homeless single person (Acute) Sepsis (Acute) Cellulitis and abscess of upper extremity (Acute) Hep C w/o coma, chronic (Acute) MRSA cellulitis (Acute) Fentanyl use disorder, severe, dependence (Acute) Cocaine abuse (Acute) IV drug abuse (Acute) Tobacco abuse (Acute) Hypomagnesemia (Acute) Leucocytosis (Acute) DVT prophylaxis (Acute) Discharge planning issues (Acute) Medical History (Updated 02/26/24 @ 11:49 by ALEXA Ford) OD (overdose of drug) Respiratory failure Suicide attempt Surgical History (Updated 01/17/24 @ 08:20 by Winnie Franco) Status post incision and drainage incision and drainage abscess/excision of brachial vein of antecubital fossa of left arm Social History Smoking/Tobacco Use Status: Current every day Tobacco Type: cigarettes Smoking risk assessment performed?: Yes Alcohol Intake: current Alcohol Intake frequency: holidays/special occasions only Drug use: Daily Substance use type: marijuana, crack/cocaine, heroin and IV drugs Details: states doesn't use Methadone per [facility] Housing: homeless Do you feel safe at home: Yes Do you feel safe in your relationship?: Yes PAWSS Have you Been Recently Intoxicated or Drunk Within the Last 30 days?: Yes Have you Ever Experienced Previous Episodes of Alcohol Withdrawal?: Yes Have you ever Experienced Withdrawal Seizures?: No Have you ever Experienced Delirium Tremens(DT)s?: No Have you ever undergone Alcohol Rehabilitation Treatment (i.e, inpt ot outpatient treatment programs)?: No Have you ever Experienced Blackouts?: No Have you ever Combined Alcohol with other Downers within the last 90 days?: No Have you ever Combined Alcohol with any other Substance of Abuse during the last 90 days?: Yes Positive Blood Alcohol level on Presentation? [PCS.BAL]: No Evidence of Increased Autonomic Activity (i.e. HR>120, tremor, sweating, agitation, nausea)?: No Result: 4
== END 2024-02-26 11:51 | disposition home or self-care (01) ==
PROVIDERS: Emergency Provider Physician Assistant
DX: T81.31XA Disruption of external operation (surgical) wound, not elsewhere classified, initial encounter (principal); F17.210 Nicotine dependence, cigarettes, uncomplicated; Z59.00 Homelessness unspecified
CPT/HCPCS: 99283

== ENCOUNTER 2025-05-07 22:23 | Emergency (ER) | payer MEDICAID, SELFPAY ==
[2025-05-07 22:28] VITALS: BP 137/68; PULSE 63; RESP 22; TEMP 37.3; O2SAT 100
--- NOTE | 2025-05-07 22:49 | ED.GENADUL_ITS ---
Discharge Plan Disposition Patient Disposition: Other Disposition Not Listed Other Facility: ED to ED [facility] Condition: Serious Discharge Details Clinical Impression: Abscess in epidural space of L2-L5 lumbar spine, Urinary incontinence Primary Care Provider: Unknown,Unknown ED Provider: Steph Williamson Home Meds and New Rx's Prescriptions: No Action No Known Home Meds HPI General Mode of arrival: ambulatory . Date/Time Provider Initiated Documentation: 05/07/25 22:35 . Limitations to Documentation: no limitations . Information obtained by: patient . HPI Narrative: 49yo M with hx IV drug use presenting for acute back pain. Pain started Wednesday or Wednesday, severe, worsening. Sharp stabbing low mid & right sided back pain radiating down his right leg to his toes. No numbness or weakness. No numbness in his groin. No bowel issues. Has been urinating very frequently for about the same period of time and has had several episodes of urinary inc ontinence which is unusual for him. No recent falls or injuries, does not recall any precipitating event. No fevers, chills, rash, nausea, vomiting, abdominal pain, chest pain, shortness of breath, or other concerns. Related Data Home Medications ?Medication ?Instructions ?Recorded ?Confirmed Unknown [No Known Home Meds] 05/07/25 0 05/07/25 Allergies Allergy/AdvReac Type Severity Reaction Status Date / Time No Known Allergies Allergy Unverified 05/07/25 22:35 General Stated Complaint: Urinary DON: 3 Review of Systems Narrative: see HPI Exam Narrative Exam Narrative: General: Alert,in no acute distress. Head: Normocephalic, atraumatic Neck: Trachea midline, ?Neck supple. Cardiac: ?RRR, no murmurs appreciated Resp: No respiratory distress. CTAB. Abd: ?Soft, non-distended, nontender : ?No suprapubic tenderness. No CVA tenderness. Extremities: ?No deformities.? No peripheral edema. Neuro: ? GCS 15.? PERRL.? EOMI.? Fluent speech, no dysarthria. Motor- RLE hip flexion 4/5 possibly 2/t limited effort 2/t pain right ankle dorsiflexion subtly diminished compared to left. Otherwise 5/5 strength bilateral upper and lower extremities including shoulder abductors/adductors, elbow flexors/extensors, wrist flexors/extensors, finger abductors/adductors, hipflexors/extensors, knee flexors/extensors, ankle dorsiflexors and planter flexors. Sensation- ?Intact to light touch and symmetric multiple dermatomes including upper and lower extremities. No saddle anesthesia. Reflexes- 3/4 bilateral patellar, 3/4 right ankle, 5 beat clonus left ankle. Gait/station: ?Normal stance.? No truncal ataxia. Steady gait with equal normal steps Rectal: Normal tone Course Vital Signs Vital signs: Vital Signs Temperature 37.3 C 05/07/25 22:28 Pulse 63 05/07/25 22:28 Respiratory Rate 22 05/07/25 22:28 Blood Pressure 137/68 05/07/25 22:28 Pulse Oximetry 100 05/07/25 22:28 Temperature 37.3 C 05/07/25 22:28 Temperature Source Oral 05/07/25 22:28 Pulse 63 05/07/25 22:28 Respiratory Rate 22 05/07/25 22:28 Blood Pressure 137/68 05/07/25 22:28 Blood Pressure Position Supine 05/07/25 22:28 Pulse Oximetry 100 05/07/25 22:28 Oxygen Delivery Method Room Air 05/07/25 22:28 Oxygen Flow Rate 0 05/07/25 22:28 Pain Level 10 05/07/25 22:28 Medical Decision Making 49yo M with hx IV drug use presenting for acute back pain. Pain started Wednesday or Wednesday, severe, worsening, radicular pain low right lumbar/sacral region radiating down entirety of right leg. No numbness or weakness however has had several episodes of urinary incontinence. No recent falls or injuries, does not recall any precipitating event. Vitals signs reassuring. Non-toxic on exam; no midline spinal tenderness, no saddle anesthesia, good rectal tone. Does have diminished strength with right hip flexion (may be 2/t pain) and subtlety diminished right ankle dorsiflexion compared to left. Will start with tylenol and toradol for pain while awaiting results of workup. -Post void residual 0 which is reassuring. -Reached out to [facility] and [facility] regarding transfer for emergent MRI as I am concerned for spinal epidural abscess (cauda equina, discitis/osteomyeletis, epidural hematoma, acute cord compressions all also possible); both declined due to capacity. Will get CT with IV contrast here while continuing to work on options for MRI, requested spine consult from [facility]. -Labs reviewed as below, CBC with leukocytosis at 13 (nonspecific) and mild anemia, CMP with no actionable abnormalities, Mg normal, ESR mildly elevated at 30, CRP markedly elevated >25, UA with 5-10 RBC. Hematuria and low back pain could represent nephrolithiasis but would not expect pain to radiate down entirety of leg, nor urinary incontinence/neuro findings. . -CT abd/pelvis & c/t/l spine independently reviewed; no bowel obstruction or free fluid or displaced fractures on my view; critical finding called to ED and discussed with reading radiologist of suspected epidural abscess at L4-L5 as w ell as right psoas abscess. Started on IV vancomycin, metronidazol, & ceftriaxone. Blood cultures sent. [facility] transfer updated with critical imaging findings [id number] Spoke with [facility] and discussed case; no emergent surgical intervention indicated, pt does require emergent MRI and likely urgent biopsy. Advised continuing abx in the meantime. Regrettably [facility] refused pt for capacity reasons including no capacity and appropriate [facility] affiliated hospitals; recommended we try [facility] or [facility]. Continuing to attempt to find facility with neurosurgery and MRI capability: -[facility] refused d/t capacity -[facility] refused 2/t capacity -[facility] transfer [facility] confirmed they have capacity for ED to ED transfer, will have me speak with ED physician and if they deem it necessary neurosurgery at their facility -Spoke with [facility] ED Dr. Peck, patient accepted ED to ED; discussion with neurosurgery not requested. Repeat neuro exam stable and unchanged. Pain adequately controlled with tylenol and toradol. Abx completed infusing. Transferred via [facility] FINDINGS: Bones/joints: There is narrowing of the right lateral recess and mild resultant canal stenosis. No acute fracture or dislocation. Probable degenerative changes with small Schmorl's nodes are present at the L4-L5 disc interspace; however early changes associated with osteomyelitis may be present. Spinal epidural space: There is an anterior epidural central and right paracentral fluid collection posterior to the L4-L5 disc interspace and the L5 vertebral body which measures a proximally 1.6 cm in the lateral dimension, 0.6 cm in the AP dimension, and 3.3 cm in the craniocaudad dimension. Soft tissues: Paraspinous soft tissue thickening and fat stranding is present anterior to the L4-L5 vertebral bodies. A rim enhancing centrally hypodense 1.3 x 0.7 x 3.5 cm fluid collection is present within the right psoas musculature consistent with psoas abscess. IMPRESSION: 1. Findings suspicious for epidural abscess and right psoas abscess. 2. Questionable discitis/osteomyelitis at the L4-L5 disc interspace versus degenerative changes. If further characterization is warranted, MRI with and without contrast could be used. Medical Records Medical records reviewed: Yes I reviewed the patient's medical records. Lab Data Lab results reviewed: Yes I reviewed the patient's lab results. Labs: 05/08/25 00:41 Blood Blood Culture - Pending 05/08/25 00:41 Blood Blood Culture - Pending Laboratory Tests Range/Units 05/07/25 05/07/25 22:56 23:15 WBC (4.4-10.8) 10^3/uL 13.10 H RBC (4.36-5.78) 10^6/uL 3.86 L Hgb (13.5-17.5) g/dL 11.7 L Hct (40.0-50.0) % 34.9 L MCV (80-95) fL 90 MCH (27.0-33.0) pg 30.3 MCHC (32.0-36.0) % 33.5 RDW (11.8-14.1) % 13.2 Plt Count (130-400) 10^3/uL 189 MPV (8.0-11.0) fL 9.6 Immature Gran % % 0.5 Neutrophils % % 82.1 Lymphocytes % % 9.3 Monocytes % % 7.2 Eosinophils % % 0.5 Basophils % % 0.4 Nucleated RBC % (0.0-0.3) % 0.0 Absolute Neutrophils (1.2-6.7) 10^3/uL 10.76 H Absolute Lymphocytes (1.2-3.4) 10^3/uL 1.22 Absolute Monocytes (0.1-0.8) 10^3/uL 0.94 H Absolute Eosinophils (0.0-0.7) 10^3/uL 0.07 Absolute Basophils (0.0-0.2) 10^3/uL 0.05 ESR (0-15) mm/hr 30 H Sodium (136-145) mmol/L 137 Potassium (3.5-5.1) mmol/L 3.7 Chloride (98-107) mmol/L 98 Carbon Dioxide (21.0-32.0) mmol/L 32.8 H Anion Gap (3-11) mmol/L 6.2 BUN (7-18) mg/dL 19 H Creatinine (0.70-1.30) mg/dL 0.9 Est GFR (CKD-EPI 2020) (mL/min/1.73m2) 106.01 Glucose (74-106) mg/dL 115 H Calcium (8.5-10.1) mg/dL 9.0 Magnesium (1.8-2.4) mg/dL 2.1 Total Bilirubin (0.2-1.0) mg/dL 0.2 AST (15-37) U/L 18 ALT (16-63) U/L 22 Alkaline Phosphatase (46-116) U/L 89 C-Reactive Protein (<or=0.5) mg/dL > 25.00 H Total Protein (6.4-8.2) g/dL 7.1 Albumin (3.4-5.0) g/dL 2.9 L Urine Color (Yellow) Yellow Urine Clarity (Clear) Clear Urine pH (5-8) 7.0 Ur Specific [place] (1.005-1.025) 1.025 Urine Protein (Neg-Trace) mg/dL 100 H Urine Ketones (Negative) mg/dL Negative Urine Blood (Negative) Small H Urine Nitrite (Negative) Negative Urine Bilirubin (Negative) Negative Urine Urobilinogen (Up to 0.2) mg/dL 4.0 H Ur Leukocyte Esterase (Negative) Negative Urine RBC (0-2) HPF 5-10 H Urine WBC (0-5) HPF 0-2 Ur Epithelial Cells (Negative) HPF Negative Urine Crystals (Negative) HPF Negative Urine Bacteria (Negative) HPF Rare Urine Casts (Negative) LPF Negative Urine Mucus (Negative) Trace Ur Culture Indicated? No Urine Glucose (Negative) mg/dL Negative Critical Care Time Critical Care Time Critical Care Time: Yes Total Critical Care Time: 48 Attestation: Due to a high probability of clinically significant, life threatening deterioration, the patient required my highest level of preparedness to intervene emergently and I personally spent this critical care time directly and personally managing the patient. This critical care time included obtaining a history; examining the patient; pulse oximetry; ordering and review of studies; arranging urgent treatment with development of a management plan; evaluation of patient's response to treatment; frequent reassessment; and, discussions with ot her providers. This critical care time was performed to assess and manage the high probability of imminent, life-threatening deterioration that could result in multi-organ failure. It was exclusive of separately billable procedures and treating other patients PFSH All Active Problems (Updated 05/08/25 @ 02:46 by Steph Williamson MD) Urinary incontinence (Acute) Abscess in epidural space of L2-L5 lumbar spine (Acute) Alcoholic (Acute) Tetrahydrocannabinol (THC) use disorder, moderate, dependence (Acute) Does not have health insurance (Acute) Homeless single person (Acute) Sepsis (Acute) Cellulitis and abscess of upper extremity (Acute) Hep C w/o coma, chronic (Acute) MRSA cellulitis (Acute) Fentanyl use disorder, severe, dependence (Acute) Cocaine abuse (Acute) IV drug abuse (Acute) Tobacco abuse (Acute) Hypomagnesemia (Acute) Leucocytosis (Acute) DVT prophylaxis (Acute) Discharge planning issues (Acute) Medical History (Updated 05/08/25 @ 02:46 by Steph Williamson MD) OD (overdose of drug) Respiratory failure Suicide attempt Surgical History (Updated 01/17/24 @ 08:20 by Winnie Franco CMA) Status post incision and drainage incision and drainage abscess/excision of brachial vein of antecubital fossa of left arm Social History Smoking/Tobacco Use Status: Current every day Tobacco Type: cigarettes Smoking risk assessment performed?: Yes Alcohol Intake: current Alcohol Intake frequency: holidays/special occasions only Drug use: Daily Substance use type: marijuana, crack/cocaine, heroin and IV drugs Details: last used heroin last night 05/06/25 Housing: homeless Do you feel safe at home: Yes Do you feel safe in your relationship?: Yes
--- NOTE | 2025-05-07 23:00 | DI.CT_ITS ---
Exam(s) CT LUMBAR SPINE W CT ABDOMEN PELVIS W EXAM: CT ABDOMEN PELVIS W and CT lumbar spine with contrast CLINICAL HISTORY: severe back pain urinary incontinence, hematuria TECHNIQUE: Imaging Protocol: Axial computed tomography images with coronal and sagittal reformatted images were created and reviewed. CONTRAST MATERIAL: Intravenous: Omnipaque 350 Contrast volume:100 mL Oral: No COMPARISON: There are no priors for comparison. FINDINGS: ABDOMEN: Lung Bases: There is a calcified granuloma in the right middle lobe. There is dependent atelectasis in the lung bases. Liver: Normal density. No measurable mass. Portal, Superior Mesenteric, and Splenic Veins: Unremarkable. Gallbladder and Biliary Tract: No radiodense calculus or dilation. Pancreas: Normal density, no abnormal calcifications or inflammatory process. Spleen: Normal. Adrenals: No masses seen. Kidneys: Normal size, contour and axis. No radiodense stones or obstructive uropathy. No masses seen. There is a retroaortic left renal vein. Abdominal Aorta: Abdominal portion non-dilated. Bowel: No obstruction or bowel wall thickening. Portions of a normal size air- filled appendix are visualized. Peritoneal Cavity: No ascites, collection or mesenteric inflammatory response. No free air. Lymph Nodes: Within normal limits. Bones: Within normal limits for the patient's age. Soft Tissues: Unremarkable. CT lumbar spine with contrast: Age-appropriate degenerative changes are present. There are no acute fractures or subluxations. At L4-L5, there is disc space narrowing. Small endplate osteophytes are seen. There is also irregularity of the inferior cortex of L4 and the superior cortex of L5 on the right. There is a ring enhancing fluid collection in the adjacent right psoas muscle measuring 1.0 transverse by 1.8 AP by 4.0 craniocaudad cm (series 10, image 55). Findings are suspicious of discitis and abscess. There is also a peripherally enhancing fluid collection in the anterior epidural space measuring 0.6 by 1.3 x 3.1 cm. This is also spacious for an abscess. PELVIS: Bladder: Symmetric distention, no gross wall thickening. Reproductive Organs: Unremarkable as visualized. Lymph Nodes: Within normal limits. Bones: Within normal limits for the patient's age. IMPRESSION: 1. Findings concerning for discitis involving the L4-5 disc space with associated fluid collections peripherally enhancing fluid collections: In the anterior epidural space posterior to L5 and in the adjacent right psoas muscle. 2. No other acute abdominal or pelvic process is seen. 3. There is no acute fracture or subluxation seen in the lumbar spine. 4. The preliminary [facility] report was reviewed. RADIATION DOSE DELIVERED: 2,294.6mGy.cm Total DLP DATA REPOSITORY: All CT scans at this facility are submitted to the National Radiology Data Registry (NRDR) Dose Index Registry (DIR) with the [employer] ([employer]). RADIATION OPTIMIZATION: All CT scans at this facility use at least one of these dose optimization techniques: automated exposure control; mA and/or kV adjustment per patient size (includes targeted exams where dose is matched to clinical indication); or iterative reconstruction.
--- NOTE | 2025-05-07 23:00 | DI.CT_ITS ---
Exam(s) CT THORACIC SPINE W EXAM: CT THORACIC SPINE W CLINICAL HISTORY: hx IVDU, severe back pain and urinary incontinence. TECHNIQUE: Imaging Protocol: Axial computed tomography images with coronal and sagittal reformatted images were created and reviewed. CONTRAST MATERIAL: Intravenous: Omnipaque 350 Contrast volume:100 COMPARISON: CT CT THORACIC SPINE WO from 03/28/2022 FINDINGS: Bones: No fractures or dislocations are seen. The alignment of the spine is normal including the cervicothoracic junction. Age-appropriate degenerative changes are seen. Schmorl's nodes are seen at T9 through T12. Soft tissues: The soft tissues of the chest are unremarkable. No large disk herniations are identified. IMPRESSION: 1. No acute abnormality is seen. 2. The preliminary [facility] report was reviewed. RADIATION DOSE DELIVERED: 2,294.6mGy.cm Total DLP DATA REPOSITORY: All CT scans at this facility are submitted to the National Radiology Data Registry (NRDR) Dose Index Registry (DIR) with the [employer] ([employer]). RADIATION OPTIMIZATION: All CT scans at this facility use at least one of these dose optimization techniques: automated exposure control; mA and/or kV adjustment per patient size (includes targeted exams where dose is matched to clinical indication); or iterative reconstruction.
--- NOTE | 2025-05-07 23:00 | DI.CT_ITS ---
Exam(s) CT CERVICAL SPINE W EXAM: CT CERVICAL SPINE W CLINICAL HISTORY: hx IVDU, severe back pain and urinary incontinence. TECHNIQUE: Imaging Protocol: Axial computed tomography images with coronal and sagittal reformatted images were created and reviewed CONTRAST MATERIAL: Intravenous: Omnipaque 350 Contrast volume:100 mL COMPARISON: CT CT HEAD CERVICAL SPINE WO from 03/28/2022 FINDINGS: Bones: No fracture or dislocations are seen. The alignment of the cervical spine is normal including the craniocervical junction and cervicothoracic junction. C2-3: No focal disc herniation, central spinal canal or neural foraminal stenosis. C3-4: No focal disc herniation, central spinal canal or neural foraminal stenosis. C4-5: There are degenerative changes seen at C4-C5 characterized by joint space narrowing and osteophytes posteriorly. There is no significant central spinal canal or neural foraminal stenosis. C5-6: No focal disc herniation, central spinal canal or neural foraminal stenosis. There are degenerative changes of the facets at this level. C6-7: No focal disc herniation, central spinal canal or neural foraminal stenosis. There are degenerative changes of the facets at this level. C7-T1: No focal disc herniation, central spinal canal or neural foraminal stenosis. Soft Tissues: The soft tissues of the neck are unremarkable. No soft tissue fluid collections are seen to suggest an abscess. IMPRESSION: 1. Mild degenerative changes seen in the cervical spine as described. 2. No CT findings to suggest spondylo discitis. 3. No focal fluid collections are seen in the soft tissues to suggest an abscess. 4. The preliminary [facility] report was reviewed. RADIATION DOSE DELIVERED: 312.63mGy.cm Total DLP DATA REPOSITORY: All CT scans at this facility are submitted to the National Radiology Data Registry (NRDR) Dose Index Registry (DIR) with the [employer] (ACR). RADIATION OPTIMIZATION: All CT scans at this facility use at least one of these dose optimization techniques: automated exposure control; mA and/or kV adjustment per patient size (includes targeted exams where dose is matched to clinical indication); or iterative reconstruction.
[2025-05-07 23:04] LABS: Glucose Negative (Negative)
[2025-05-07 23:11] LABS: C & S Indicated? No; WBC 0-2 HPF (0-5)
[2025-05-07] MEDS: ACETAMINOPHEN 1,000 MG/100 ML BAG 400 MG IVPB (23:22)
[2025-05-07] MEDS: Ketorolac 15 MG/ML VIAL IVP (23:22)
[2025-05-07 23:24] LABS: Abs Immature Grans 0.06 10^3/uL (0.0-0.06); HCT 34.9 % (40.0-50.0); HGB 11.7 g/dL (13.5-17.5); Immature Grans % 0.5 %; MCH 30.3 pg (27.0-33.0); MCHC 33.5 % (32.0-36.0); MCV 90 fL (80-95); MPV 9.6 fL (8.0-11.0); Platelet Count 189 10^3/uL (130-400); RBC 3.86 10^6/uL (4.36-5.78); RDW 13.2 % (11.8-14.1); RDW-SD 43.8 fL; WBC 13.10 10^3/uL (4.4-10.8)
[2025-05-07 23:25] LABS: ESR 30 mm/hr (0-15)
[2025-05-07 23:30] VITALS: BP 130/60; PULSE 60; RESP 14; O2SAT 98
[2025-05-07 23:39] LABS: ALT 22 U/L (16-63); AST 18 U/L (15-37); Albumin 2.9 g/dL (3.4-5.0); Alkaline Phosphatase 89 U/L (46-116); Anion Gap 6.2 mmol/L (3-11); BUN 19 mg/dL (7-18); Bilirubin, Total 0.2 mg/dL (0.2-1.0); C-Reactive Protein > 25.00 mg/dL (<or=0.5); CO2 32.8 mmol/L (21.0-32.0); Calcium 9.0 mg/dL (8.5-10.1); Chloride 98 mmol/L (98-107); Estimated GFR 106.01 (mL/min/1.73m2); Glucose 115 mg/dL (74-106); Magnesium 2.1 mg/dL (1.8-2.4); Potassium 3.7 mmol/L (3.5-5.1); Sodium 137 mmol/L (136-145); Total Protein 7.1 g/dL (6.4-8.2)
[2025-05-08] MEDS: Normal Saline - Diluent 50 ML VIAL IJ ×2 (00:26→00:27)
[2025-05-08] MEDS: Normal Saline Flush 10 ML SYR IVP (00:26)
[2025-05-08] MEDS: Omnipaque 350 MG/ML 100 ML BTL IJ ×2 (00:27→00:28)
[2025-05-08 00:30] VITALS: BP 111/50; PULSE 58; RESP 14; O2SAT 97
--- NOTE | 2025-05-08 00:41 | DI.VRAD_ITS ---
PROCEDURE INFORMATION: Exam: CT Abdomen And Pelvis With Contrast Exam date and time: 05/07/2025 11:42 PM Age: 49 years old Clinical indication: Other: Urinary incontinence, hematuria; Other: Severe back pain; Additional info: Severe back pain \T\ urinary incontinence, hematuria TECHNIQUE: Imaging protocol: Computed tomography of the abdomen and pelvis with contrast. Contrast material: OMNI 350; Contrast volume: 100 ml; Contrast route: INTRAVENOUS (IV); COMPARISON: CR XR HIP RT COMPLETE AP PELVIS 06/23/2023 1:40 PM FINDINGS: Lungs: Mild atelectasis is present at the dependent lung bases. Liver: The liver has a normal appearance. Gallbladder and biliary ducts: The gallbladder is unremarkable. No biliary ductal dilatation. Pancreas: The pancreas demonstrates normal size. No pancreatic ductal dilatation. Spleen: The spleen demonstrates normal size. Adrenal glands: The adrenal glands have a normal appearance. Kidneys and ureters: The kidneys are normal in size. No nephrolithiasis or hydronephrosis. No hydroureter or ureterolithiasis. Stomach and bowel: The bowel demonstrates overall normal caliber and wall thickness. Appendix: The appendix is thin walled. Intraperitoneal space: Unremarkable. No free air. No significant fluid collection. Vasculature: The IVC and aorta have a normal appearance. Lymph nodes: No enlarged lymph nodes. Urinary bladder: The bladder is thin walled and fluid filled. Reproductive: Unremarkable as visualized. Bones/joints: Bones have a normal appearance. No acute fracture or suspicious bone lesion. There is moderate resultant canal stenosis and narrowing of the right lateral recess. Soft tissues: High density soft tissue is present along the central and right paracentral anterior extra medullary space at the level of L5. This measures approximately 6 mm in the AP diameter, 1.3 cm in the lateral diameter and 3.1 cm in the craniocaudad diameter. There is mild prevertebral soft tissue swelling and fat stranding noted at L4-L5. A centrally hypodense, peripherally enhancing 0.9 x 0.7 x 1.9 cm focus is present within the right psoas musculature. IMPRESSION: 1. Posterior epidural fluid collection versus mass. The presence of anterior paraspinous soft tissue thickening and fat stranding raises the suspicion for infection. Could this patient have an acute discitis and/or epidural abscess? If further characterization is warranted, MRI of the lumbar spine with and without contrast is recommended. 2. Findings suspicious for small right psoas abscess. This would also be better characterized by contrast-enhanced MRI and corroborates the suspicion that there is an epidural infection. 3. Normal appendix. 4. No other acute intra-abdominal findings. 5. No hydronephrosis, nephrolithiasis, hydroureter, or ureterolithiasis. THIS REPORT CONTAINS FINDINGS THAT MAY BE CRITICAL TO PATIENT CARE. The findings were verbally communicated via telephone conference with ANN-MARIE CASTRO at 12:40 AM EST on 05/08/2025. The findings were acknowledged and understood. Dictated and Authenticated by: Mary Lou Martinez MD. Orderin Teri Choi MD
--- NOTE | 2025-05-08 00:46 | DI.VRAD_ITS ---
PROCEDURE INFORMATION: Exam: CT Lumbar Spine With Contrast Exam date and time: 05/07/2025 11:42 PM Age: 49 years old Clinical indication: Other: HX ivdu, severe back pain and urinary incontinence TECHNIQUE: Imaging protocol: Computed tomography of the lumbar spine with contrast. Contrast material: OMNI 350; Contrast volume: 100 ml; Contrast route: INTRAVENOUS (IV); COMPARISON: CT THORACIC SPINE WO 03/28/2022 12:50 AM FINDINGS: Bones/joints: There is narrowing of the right lateral recess and mild resultant canal stenosis. No acute fracture or dislocation. Probable degenerative changes with small Schmorl's nodes are present at the L4-L5 disc interspace; however early changes associated with osteomyelitis may be present. Spinal epidural space: There is an anterior epidural central and right paracentral fluid collection posterior to the L4-L5 disc interspace and the L5 vertebral body which measures a proximally 1.6 cm in the lateral dimension, 0.6 cm in the AP dimension, and 3.3 cm in the craniocaudad dimension. Soft tissues: Paraspinous soft tissue thickening and fat stranding is present anterior to the L4-L5 vertebral bodies. A rim enhancing centrally hypodense 1.3 x 0.7 x 3.5 cm fluid collection is present within the right psoas musculature consistent with psoas abscess. IMPRESSION: 1. Findings suspicious for epidural abscess and right psoas abscess. 2. Questionable discitis/osteomyelitis at the L4-L5 disc interspace versus degenerative changes. If further characterization is warranted, MRI with and without contrast could be used. THIS REPORT CONTAINS FINDINGS THAT MAY BE CRITICAL TO PATIENT CARE. The findings were verbally communicated via telephone conference with ANN-MARIE CASTRO at 12:45 AM EST on 05/08/2025. The findings were acknowledged and understood. Dictated and Authenticated by: Mary Lou Martinez MD. Orderin Teri Choi MD
--- NOTE | 2025-05-08 00:48 | DI.VRAD_ITS ---
PROCEDURE INFORMATION: Exam: CT Thoracic Spine With Contrast Exam date and time: 05/07/2025 11:42 PM Age: 49 years old Clinical indication: Other: HX ivdu, severe back pain and urinary incontinence TECHNIQUE: Imaging protocol: Computed tomography of the thoracic spine with contrast. Contrast material: OMNI 350; Contrast volume: 100 ml; Contrast route: INTRAVENOUS (IV); COMPARISON: CT THORACIC SPINE WO 03/28/2022 12:50 AM FINDINGS: Bones/joints: Bones have a normal appearance. No acute fracture or suspicious bone lesion. There is mild diffuse intervertebral disc space narrowing and endplate sclerosis. Soft tissues: Unremarkable. Lymph nodes: No enlarged lymph nodes. Lungs: The lungs are clear. Heart: Heart is normal size. No pericardial effusion. IMPRESSION: No acute radiographic abnormalities of the thoracic spine or the paraspinous soft tissues. Dictated and Authenticated by: Mary Lou Martinez MD. Orderin Teri Choi MD
--- NOTE | 2025-05-08 00:52 | DI.VRAD_ITS ---
PROCEDURE INFORMATION: Exam: CT Cervical Spine With Contrast Exam date and time: 05/08/2025 12:02 AM Age: 49 years old Clinical indication: Other: HX ivdu, severe back pain and urinary incontinence TECHNIQUE: Imaging protocol: Computed tomography of the cervical spine with contrast. Contrast material: OMNI 350; Contrast volume: 100 ml; Contrast route: INTRAVENOUS (IV); COMPARISON: CT HEAD CERVICAL SPINE WO 03/28/2022 12:46 AM FINDINGS: Bones: No acute fracture or dislocation. No suspicious bony lesions. Normal spinal alignment. Lungs: Lung apices are normal. Soft tissues: No suspicious soft tissue enhancement. No paraspinous soft tissues thickening. No paraspinous fluid collections. IMPRESSION: 1. No acute cervical spine fracture. 2. No suspicious paraspinous enhancement or fluid. Dictated and Authenticated by: Mary Lou Martinez MD. Orderin Teri Choi MD
[2025-05-08] MEDS: metroNIDAZOLE 500 MG/100 ML BAG 100 MG IVPB (01:21)
[2025-05-08] MEDS: cefTRIAXone 2 GM/50 ML BAG IVPB (01:21)
[2025-05-08 02:25] VITALS: BP 92/48; PULSE 50; RESP 14; O2SAT 99
[2025-05-08] MEDS: Ketorolac 15 MG/ML VIAL IVP (03:27)
[2025-05-08] MEDS: Ondansetron 4 MG/2 ML VIAL IVP (03:27)
[2025-05-08 03:28] VITALS: BP 112/60; PULSE 62; RESP 16; O2SAT 98
--- NOTE | 2025-05-08 03:54 | NUR.NOTE ---
Nursing Note: Entered chart to get contact info. PT left belonging behind.
--- NOTE | 2025-05-08 15:57 | NUR.NOTE ---
Lab called stating the preliminary blood cultures all bottles were positive for: gram positive cocci in clusters. Patient transferred to [facility]. Dr. Felipe Yeung aware of the transfer and prelim results will be faxed. Faxed and received to the ED. P [phone]. F [phone]. Nursing Note:
== END 2025-05-08 03:27 | disposition short-term general hospital (02) ==
LOC: ER 05-08 03:31
PROVIDERS: Emergency Provider Student in an Organized Health Care Education/Training Program
DX: G06.1 Intraspinal abscess and granuloma (principal); R32 Unspecified urinary incontinence; R10.31 Right lower quadrant pain; M54.6 Pain in thoracic spine; M54.50 Low back pain, unspecified
CPT/HCPCS: 36415; 51798; 80053; 85652; 87040; 87077; 96365; 96367; 96375; 96376; 99291; 72126; 72129; 72132; 74177; 81003; 81015; 83735; 85025; 86140; 87186; J0131; J0696; J1836; J1885; J2405; J3373; J3490

== ENCOUNTER 2025-05-17 17:45 | Inpatient (IN) | payer MEDICAID, SELFPAY ==
--- NOTE | 2025-05-17 09:30 | CMSA_ITS ---
Date of service: 05/17/25 Time of Service: 09:31 SB Psychosocial/[facility]. [facility] Admission Admission Date: 05/13/25 Admission From:: [facility] Diagnosis:: Endocarditis, osteomylitis Swing Bed Admission Swing Bed Admit Date:: 05/17/25 Swing Bed Level of Care: Level 1/SNF Social Supports PREVIOUS FUNCTIONAL STATUS/SOCIAL/FAMILY SUPPORTS:: At baseline, Prabha is active and independent, he drives but does not have transportation. He completed 10th grade, and reports that he finds it difficult to read Serbian. He is currently unemployed but previously worked for a [employer] company and intends to return to work when he feels better. He is originally from [place] and has lived in the for the past 8 years. He denies having friends or family in the area, other than his girlfriend, Radha, and the individual he works for. Per pt, he has a relationship with his 28 year old son who lives in [place] and reports having a 5 year old child from this area, however he does not have custody and a cousin adopted them. Prior to Admission Living Arrangements/Environment Prior to Admission:: [place] in [facility], worried about housing for the winter Education Highest Grade Completed:: 10th Where did you attend School:: [place] Work History Employment Status:: Unemployed [place]: No 's Spouse: No Protestant Active Denominational Member:: No Community Community Supports/Involvement: CHW at [facility] Interests Hobbies:: Just going to work Present Functional Status Physical Abilities:: WNL Cognitive:: WNL Communication:: Unable to ready Serbian, verbal communication is effective Medical History PAST MEDICAL HISTORY/PAST SURGICAL HISTORY:: Drug abuse; methadone maintenance through [facility], depression, Hep C. Admission Data Reason for Swing Bed Admission:: 6 weeks of IV ABX, through 06/22/25 Discharge Plan:: [facility] for IV ABX through 06/22/25 after which, Prabha is planning to discharge to the community if medically ready. Patient will follow up with community providers and continue per his discharge plan of care. Follow up with PCP at [facility] and [facility] for Community support. Assessment: Glen Corcoran) was standing in his room pacing when CM met with him. He recently arrived at [facility] after being transported back from [facility], where he was admitted for management of MSSA TV Endocarditis and osteomylitis L4-L5. He is now being admitted to [facility] for IV ABX through 06/22/25. During conversation Prabha expressed concern for his girlfriend Radha, whom he has not seen or spoken to since his hospitalization, noting that her phone was stolen. He stated that before he came to the hospital he was living with Radha in a camper on [address] in [facility]. He voiced worries about winter and the possibility of being homeless. as well as ongoing concerns for Radha. Although patient has mentioned outpatient treatment for abx several times during this conversation, he verbalized understanding of [facility] and is agreeable to the plan of care. He states that he would like to stay for treatment because the risk losing his life over material stuff isn't worth it. Regional Clinical Director: Flor Cruz RN Date Assessment was completed:: 05/17/25
--- NOTE | 2025-05-17 09:30 | INITIAL_ITS ---
Date of service: 05/17/25 Time of Service: 16:51 Care Management Initial Assmt Initial Assessment Reason for Hospitalization: Osteomylitis, Endocarditis Functional Status/Living Situation Patient Presentation: Glen Corcoran) was standing in his room pacing when CM met with him. He recently arrived at [facility] after being transported back from [facility], where he was admitted for management of MSSA TV Endocarditis and osteomylitis L4-L5. He is now being admitted to [facility] for IV ABX through 06/22/25. During conversation Prabha expressed concern for his girlfriend Radha, whom he has not seen or spoken to since his hospitalization, noting that her phone was stolen. He stated that before he came to the hospital he was living with Radha in a camper on [address] in [facility]. He voiced worries about winter and the possibility of being homeless. as well as ongoing concerns for Radha. Although patient mentioned outpatient treatment for abx several times during this conversation he verbalized understanding of [facility] and is agreeable to the plan of care. He states that he would like to stay for treatment because the risk losing his life over material stuff isn't worth it. At baseline, Prabha is active and independent, he drives but does not have transportation. He completed 10th grade, and reports that he finds it difficult to read Haitian. He is currently unemployed but previously worked for a [employer] company and intends to return to work when he feels better. He is originally from [place] and has lived in the for the past 8 years. He denies having friends or family in the area, other than his girlfriend Radha and the individual he works for. Per pt, he has a relationship with his 28 year old son who lives in [place] and reports having a 5 year old child from this area, however he does not have custody and they were adopted by a cousin. Prabha has previously utilized [facility] for community support and was last seen by a CHW in mid-April. He expressed interest in reconnecting with them during this admission. CM will place a referral to [facility]. In addition, pt reports that he has a PCP at [facility]. CM will follow. Town of Residence: [facility] [place] Resides with: Spouse (S/O Radha Jonas) Natural Supports: Girlfriend Radha Jonas Employer: [employer] Employment Status: Unemployed Instrumental Activities of Daily Living (ADLs): Independent Advance Directives Advance Directives: Do you have an Advance Directive: N , 06:58 AD On File at [facility]: N 06/08/17, 11:12 Date Asked 05/17/25 Today, 08:28 AD Date Reviewed COLST On File at [facility] No 05/07/25, 22:24 COLST Date Scanned Insurance Coverage/Financial Issues Insurance: Medicaid of [place] - [id number] Care Team Visit Care Team Role Provider Type Unknown Unknown Primary Care Provider STAFF PHYSICIAN Conrad Art MD Admit Provider [facility] STAFF PHYSICIAN Attending Provider Discharge Potential Discharge Needs: Imaging/labs (Outpatient follow up [facility]), PCP F/U Appt ([facility] ) and Other (Outpatient follow up with Cardiothoracic surgery) Anticipated Barriers to Discharge: None Identified Patient/Family Education Needs: Review discharge instructions, discuss Ask Me Three Transportation: Private vehicle Plan: [facility] for IV ABX through 06/22/25 after which, Prabha is planning to discharge to the community if medically ready. Patient will follow up with community providers and continue per his discharge plan of care.Follow up with PCP at [facility] and [facility] for Community support. CM will follow. Social Determinants of Health Screening Will the Patient Participate in the Screening?: Unable to obtain PFSH All Active Problems (Updated 05/17/25 @ 18:51 by Conrad Art MD) Endocarditis of tricuspid valve (Acute) Urinary incontinence (Acute) Abscess in epidural space of L2-L5 lumbar spine (Acute) Alcoholic (Acute) Tetrahydrocannabinol (THC) use disorder, moderate, dependence (Acute) Does not have health insurance (Acute) Homeless single person (Acute) Sepsis (Acute) Cellulitis and abscess of upper extremity (Acute) Hep C w/o coma, chronic (Acute) MRSA cellulitis (Acute) Fentanyl use disorder, severe, dependence (Acute) Cocaine abuse (Acute) IV drug abuse (Acute) Tobacco abuse (Acute) Hypomagnesemia (Acute) Leucocytosis (Acute) DVT prophylaxis (Acute) Discharge planning issues (Acute) Medical History (Updated 05/17/25 @ 18:51 by Conrad Art MD) OD (overdose of drug) Respiratory failure Suicide attempt Surgical History (Updated 01/17/24 @ 08:20 by Winnie Franco CMA) Status post incision and drainage incision and drainage abscess/excision of brachial vein of antecubital fossa of left arm Social History Smoking/Tobacco Use Status: Current every day Tobacco Type: cigarettes Smoking risk assessment performed?: Yes Alcohol Intake: current Alcohol Intake frequency: holidays/special occasions only Drug use: Daily Substance use type: marijuana, crack/cocaine, heroin and IV drugs Details: last used heroin last night 05/06/25 Housing: other Do you feel safe at home: Yes Do you feel safe in your relationship?: Yes
--- NOTE | 2025-05-17 09:31 | CM.SWINGPC ---
Date of service: 05/17/25 Time of Service: 19:22 Swingbed Plan of Care Activites/Discharge Plan of care: SWING BED PROGRAM ACTIVITIES/DISCHARGE PLAN OF CARE ACTIVITIES PLAN Date: 05/17/25 Identified Need: Likfe enrichment activities during prolong hospital stay. Intervention/Plan: TV in room, offer activity cart, offer reiki, pet therapy, music therapy when available. CM will continue to follow and support Prabha's life enrichment during this swingbed stay. Initials DISCHARGE PLAN Date:05/17/25 Identified Need: CM will support coordination of a safe discharge plan back to the community. Intervention/Plan: Patient has expressed concern about housing, as he has received an eviction notice which will be in effect on 06/17/25. He has been connected with [employer], and CM provided the phone number to [facility], at his request, as he would like to apply for low income housing. CM will follow. Initials DL
[2025-05-17 17:27] VITALS: BP 115/82; PULSE 53; RESP 16; TEMP 36.1; O2SAT 99
--- NOTE | 2025-05-17 18:12 | W.PC.ACHO ---
Registration Status: ADM IN Primary Language: Preferred Language: Italian Medical / Surgical History (Last Updated 01/16/24 @ 10:40 by Laura Villafana DO) OD (overdose of drug) Respiratory failure Suicide attempt (Last Updated 01/17/24 @ 08:20 by Winnie Franco CMA) Status post incision and drainage Most Recent Vital Signs Temperature 36.1 C L 05/17/25 17:27 Temperature Source Temporal Artery Scan 05/17/25 17:27 Pulse 53 L 05/17/25 17:27 Pulse Rhythm Regular 05/17/25 17:47 Respiratory Rate 16 05/17/25 17:27 Respiratory Effort Normal 05/17/25 17:47 Respiratory Depth Normal 05/17/25 17:47 Respiratory Pattern Normal 05/17/25 17:47 Blood Pressure 115/82 05/17/25 17:27 Blood Pressure Mean 93 05/17/25 17:27 Pulse Oximetry 99 05/17/25 17:27 Oxygen Delivery Method Room Air 05/17/25 17:47 Oxygen Flow Rate 0 05/17/25 17:47 Pain Level 0 05/17/25 17:47 Allergies No Known Allergies Allergy (Unverified 05/07/25 22:35) Diet Orders Category Date Time Status Regular/Normal [DIET] Nutrition 05/17/25 Dinner Active Intake and Output - 24 Hour Total 05/17/25 thru 05/17/25 17:47 Weight 53.977 kg Falls Risk Assessment History of Falls No History 05/17/25 17:47 Contributing Factors No Factors 05/17/25 17:47 Ambulatory Aids Independent 05/17/25 17:47 Tubes/Lines None 05/17/25 17:47 Gait Evaluation No gait disturbance 05/17/25 17:47 Cognition No cognitive impairment 05/17/25 17:47 Fall Total Score 0 05/17/25 17:47 Level of Risk Standard/Low Risk 05/17/25 17:47 v v v v v v v v v Sending and/or Receiving Nurses: Please use comment section below to note any information pertinent to the patient hand-off not included above. Information / Comments: AOx4, VSS, denies pain. SHAHAB single lumen PICC line. Continentx2. No skin problems. Report received from: EMT
[2025-05-17] MEDS: Enoxaparin 40 MG/0.4 ML SYR SC (18:19)
[2025-05-17] MEDS: Nicotine 2 MG GUM CH (18:19)
[2025-05-17] MEDS: Nicotine 21 MG/24 HR PATCH TD (18:19)
--- NOTE | 2025-05-17 18:44 | HPE_ITS ---
Date of service: 05/17/25 Time of Service: 18:44 Assessment and Plan Assessment and plan (1) Tobacco abuse: Status: Acute Assessment and plan: Abigail added (2) IV drug abuse: Status: Acute Assessment and plan: Noted (3) Hep C w/o coma, chronic: Status: Acute Assessment and plan: Noted will try to get further records from [place] in regards to whether or not he was tested for quantifiable data. (4) Abscess in epidural space of L2-L5 lumbar spine: Status: Acute Assessment and plan: Complete course of antibiotics of Ancef 2 g Q8 until 06/22/2025 (5) Endocarditis of tricuspid valve: Status: Acute Assessment and plan: As above pt is ambulating so I will not start chemical prophylaxis History of Present Illness History of Present Illness Chief Complaint: Back pain Narrative: This is a 49-year-old gentleman who was originally seen in our hospital on 07 May for acute back pain and polyuria. While he was in the ED he was noted to have what appeared to be significant discitis/osteomyelitis. Considering the fact that we do not have neurosurgery request was made for transfer. Patient was transferred to a hospital in [place]. While he was in that hospital he was seen with the hospitalist service infectious disease cardiology and neurosurgery. 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 Patient also had a was seen by cardiothoracic surgery. CT scans done at that time were concerning for an abscess epidural abscess and a right psoas abscess as well. No surgical intervention was made for the osteomyelitis or discitis as the spinal canal is not narrowed. Patient was started on antibiotics and was sent to here for mcc needs. Patient is admitted for swing bed status. In reading his notes he is to continue with Ancef for 6 weeks which will end on 06/22/2025. Of note the patient does have a history of intravenous drug use. Patient also has nicotine use disorder. Review of Systems All systems reviewed & are unremarkable except as noted in HPI and below PFSH All Active Problems (Updated 05/17/25 @ 18:51 by Conrad Art MD) Endocarditis of tricuspid valve (Acute) Urinary incontinence (Acute) Abscess in epidural space of L2-L5 lumbar spine (Acute) Alcoholic (Acute) Tetrahydrocannabinol (THC) use disorder, moderate, dependence (Acute) Does not have health insurance (Acute) Homeless single person (Acute) Sepsis (Acute) Cellulitis and abscess of upper extremity (Acute) Hep C w/o coma, chronic (Acute) MRSA cellulitis (Acute) Fentanyl use disorder, severe, dependence (Acute) Cocaine abuse (Acute) IV drug abuse (Acute) Tobacco abuse (Acute) Hypomagnesemia (Acute) Leucocytosis (Acute) DVT prophylaxis (Acute) Discharge planning issues (Acute) Medical History (Updated 05/17/25 @ 18:51 by Conrad Art MD) OD (overdose of drug) Respiratory failure Suicide attempt Surgical History (Updated 01/17/24 @ 08:20 by Winnie Franco CMA) Status post incision and drainage incision and drainage abscess/excision of brachial vein of antecubital fossa of left arm Social History Smoking/Tobacco Use Status: Current every day Tobacco Type: cigarettes Smoking risk assessment performed?: Yes Alcohol Intake: current Alcohol Intake frequency: holidays/special occasions only Drug use: Daily Substance use type: marijuana, crack/cocaine, heroin and IV drugs Details: last used heroin last night 05/06/25 Housing: other Do you feel safe at home: Yes Do you feel safe in your relationship?: Yes Meds Allergies and Home Medications Allergies Allergy/AdvReac Type Severity Reaction Status Date / Time No Known Allergies Allergy Unverified 05/07/25 22:35 Home Medications ?Medication ?Instructions ?Recorded ?Confirmed ?Type Unknown [No Known Home Meds] 05/07/25 0 05/07/25 History Exam Narrative Exam Narrative: HEENT-normocephalic atraumatic mucous members moist oropharynx clear Neck-no lymphadenopathy no JVD no thyromegaly Cardiovascular-regular rate and rhythm I do not appreciate a murmur. 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 Results Last Vital Signs Temp 36.1 C L 05/17/25 17:27 Pulse 53 L 05/17/25 17:27 Resp 16 09/04/25 17:27 BP 115/82 05/17/25 17:27 Pulse Ox 99 05/17/25 17:27 Time Spent Time spent with Patient: <40 minutes Time was spent: preparing to see the patient(eg.review tests), obtaining and/or reviewing separately otained hiistory, ordering medications,tests, procedures, referring, communicating with other health customer care associate, indepentently interpreting results, counseling the patient and care coordination
[2025-05-17 20:08] VITALS: BP 106/83; PULSE 57; RESP 18; TEMP 36.3; O2SAT 97
[2025-05-17] MEDS: ceFAZolin 2 GM/50 ML BAG IVPB (20:27)
[2025-05-18] MEDS: ceFAZolin 2 GM/50 ML BAG IVPB ×3 (04:03→19:51)
[2025-05-18 07:23] VITALS: BP 105/56; PULSE 50; RESP 17; TEMP 36.4; O2SAT 99
[2025-05-18] MEDS: Docusate Sodium 100 MG CAP PO (07:40)
[2025-05-18] MEDS: Nicotine 21 MG/24 HR PATCH TD (07:40)
[2025-05-18] MEDS: Methadone Liquid 10 MG/ML 140 MG PO (09:34)
[2025-05-18] MEDS: Nicotine 2 MG GUM CH (11:00)
[2025-05-18] MEDS: Enoxaparin 40 MG/0.4 ML SYR SC (18:34)
[2025-05-18] MEDS: Normal Saline Flush 10 ML SYR IVP (19:54)
[2025-05-18 21:13] VITALS: BP 96/59; PULSE 56; RESP 16; TEMP 36; O2SAT 99
[2025-05-19] MEDS: Normal Saline Flush 10 ML SYR IVP ×3 (03:52→19:32)
[2025-05-19] MEDS: ceFAZolin 2 GM/50 ML BAG IVPB ×3 (03:53→19:32)
[2025-05-19] MEDS: Nicotine 21 MG/24 HR PATCH TD (09:01)
[2025-05-19] MEDS: Methadone Liquid 10 MG/ML 140 MG PO (09:05)
[2025-05-19] MEDS: Nicotine 2 MG GUM CH (12:07)
[2025-05-19 16:00] VITALS: BP 100/60; PULSE 52; RESP 16; TEMP 36.6; O2SAT 96
[2025-05-19] MEDS: Enoxaparin 40 MG/0.4 ML SYR SC (17:53)
[2025-05-19] MEDS: Acetaminophen 325 MG TAB PO (17:53)
[2025-05-19] MEDS: Milk of Magnesia 30 ML CUP PO (19:31)
[2025-05-19] MEDS: Polyethylene Glycol 3350 17 GM PACKET PO (19:31)
[2025-05-19] MEDS: Docusate Sodium 100 MG CAP PO (19:31)
[2025-05-20] MEDS: ceFAZolin 2 GM/50 ML BAG IVPB ×3 (03:48→19:50)
[2025-05-20] MEDS: Normal Saline Flush 10 ML SYR IVP ×2 (03:49→11:48)
[2025-05-20 07:22] VITALS: BP 102/63; PULSE 48; RESP 18; TEMP 36.9; O2SAT 99
[2025-05-20] MEDS: Methadone Liquid 10 MG/ML 140 MG PO (07:53)
[2025-05-20] MEDS: Nicotine 21 MG/24 HR PATCH TD (07:58)
[2025-05-20 12:11] LABS: Abs Immature Grans 0.05 10^3/uL (0.0-0.06); HCT 34.9 % (40.0-50.0); HGB 11.6 g/dL (13.5-17.5); Immature Grans % 0.4 %; MCH 31.1 pg (27.0-33.0); MCHC 33.2 % (32.0-36.0); MCV 94 fL (80-95); MPV 8.6 fL (8.0-11.0); Platelet Count 602 10^3/uL (130-400); RBC 3.73 10^6/uL (4.36-5.78); RDW 13.4 % (11.8-14.1); RDW-SD 46.1 fL; WBC 13.35 10^3/uL (4.4-10.8)
[2025-05-20 12:12] LABS: ESR 82 mm/hr (0-15)
[2025-05-20 12:28] LABS: ALT 13 U/L (16-63); AST 18 U/L (15-37); Albumin 3.0 g/dL (3.4-5.0); Alkaline Phosphatase 103 U/L (46-116); Anion Gap 6.2 mmol/L (3-11); BUN 34 mg/dL (7-18); Bilirubin, Total 0.2 mg/dL (0.2-1.0); C-Reactive Protein 2.63 mg/dL (<or=0.5); CO2 32.8 mmol/L (21.0-32.0); Calcium 9.4 mg/dL (8.5-10.1); Chloride 98 mmol/L (98-107); Estimated GFR 83.32 (mL/min/1.73m2); Glucose 95 mg/dL (74-106); Potassium 4.7 mmol/L (3.5-5.1); Sodium 137 mmol/L (136-145); Total Protein 8.3 g/dL (6.4-8.2)
[2025-05-20] MEDS: Enoxaparin 40 MG/0.4 ML SYR SC (18:49)
[2025-05-20] MEDS: Docusate Sodium 100 MG CAP PO (19:50)
[2025-05-20] MEDS: Milk of Magnesia 30 ML CUP PO (19:50)
[2025-05-20] MEDS: Polyethylene Glycol 3350 17 GM PACKET PO (19:50)
[2025-05-20 20:06] VITALS: BP 107/64; PULSE 52; RESP 16; TEMP 36.4; O2SAT 99
[2025-05-21] MEDS: ceFAZolin 2 GM/50 ML BAG IVPB ×3 (04:00→19:51)
[2025-05-21] MEDS: Acetaminophen 325 MG TAB PO ×2 (05:24→11:32)
[2025-05-21] MEDS: Methadone Liquid 10 MG/ML 140 MG PO (08:44)
[2025-05-21] MEDS: Nicotine 2 MG GUM CH (08:44)
[2025-05-21] MEDS: Nicotine 21 MG/24 HR PATCH TD (08:44)
[2025-05-21] MEDS: Normal Saline Flush 10 ML SYR IVP ×3 (08:45→19:52)
[2025-05-21 08:50] VITALS: BP 120/78; PULSE 48; RESP 16; TEMP 36.3; O2SAT 100
--- NOTE | 2025-05-21 14:02 | PHA.REVIEW2 ---
Pharmacy Admission Review Admission Clinical Review Admission Pharmacy Review: Endocarditis of tricuspid valve (Acute) Abscess in epidural space of L2-L5 lumbar spine (Acute) Hep C w/o coma, chronic (Acute) IV drug abuse (Acute) Tobacco abuse (Acute) No Known Allergies Allergy (Unverified 05/07/25 22:35) Resuscitation Status Full Code Height 5 ft 4 in Weight 55.3 kg Comments Comments/Follow Ups: Watch VS, labs, culture results and for med changes. Pharmacy Admission Review Renal Dosing Renal Dosing: BUN 34 mg/dL (7-18) H 05/20/25 11:45 Creatinine 1.1 mg/dL (0.70-1.30) 05/20/25 11:45 Medications needing adjustments: Reviewed (Crcl ~64 mL/min current meds are okay.) Anticoagulation Anticoagulation: Hgb 11.6 g/dL (13.5-17.5) L 05/20/25 11:45 Hct 34.9 % (40.0-50.0) L 05/20/25 11:45 Plt Count 602 10^3/uL (130-400) H 05/20/25 11:45 Creatinine 1.1 mg/dL (0.70-1.30) 05/20/25 11:45 DVT Prophylaxis: Reviewed Medications: Enoxaparin Opiate Usage Evaluate Pain Scale/Pains Meds: Reviewed Scheduled Bowel Reg ordered if on Opiates?: No (Has PRN meds ordered) Relevant Labs Relevant Labs: ESR 82 mm/hr (0-15) H 05/20/25 11:45 Sodium 137 mmol/L (136-145) 05/20/25 11:45 Potassium 4.7 mmol/L (3.5-5.1) 05/20/25 11:45 Chloride 98 mmol/L (98-107) 05/20/25 11:45 C-Reactive Protein 2.63 mg/dL (<or=0.5) H 05/20/25 11:45 Electrolytes, C-Reactive P, ESR: Reviewed DM Control DM Control: Glucose 95 mg/dL (74-106) 05/20/25 11:45 DM Control: Reviewed (No DM in pt's medical history.) Cardiac Review BP, HR, EF%: Reviewed (BP and HR have been low to normal so far this admission. ) QTc Review QTc: N/A IV to PO Switch IV Medications: Reviewed Home Meds Home Med List reviewed: Reviewed Current Meds Current Medication Order Review: Reviewed Pharmacy Antibiotic Review Pharmacy Antibiotic Activity: C/S review and Reviewed, no change Comments: Cefazolin continues until 06/22/25 for endocarditis with MSSA bacteremia discitis and osteomyelitis per H&P. Blood cultures no growth @24 hours. Comments Comments/Follow Ups: Watch VS, labs, culture results and for med changes.
[2025-05-21 15:08] VITALS: BP 106/66; PULSE 50; RESP 15; TEMP 36; O2SAT 98
[2025-05-21] MEDS: Ketorolac 15 MG/ML VIAL IVP (17:35)
[2025-05-21] MEDS: Enoxaparin 40 MG/0.4 ML SYR SC (17:36)
[2025-05-21] MEDS: Polyethylene Glycol 3350 17 GM PACKET PO (18:05)
[2025-05-21] MEDS: Docusate Sodium 100 MG CAP PO (18:05)
[2025-05-21] MEDS: Milk of Magnesia 30 ML CUP PO (18:05)
[2025-05-21 19:24] VITALS: BP 108/68; PULSE 54; RESP 19; TEMP 36.3; O2SAT 100
--- NOTE | 2025-05-21 20:42 | W.NUTRFU ---
Date of service: 05/21/25 Time of Service: 13:00 Nutrition Note NOTE: Patient with a history of housing instability and chronic substance use. Denies concerns with chewing/swallowing. Hx of constipation, no BM in 2 days per patient - ordered for PEG, neto, MOM. Does confirm weight loss - went from 130lbs to 118lbs - pt states this occurred over the course of 2weeks. His weight hx shows about an 8lb/3.6kg weight loss from 05/07-today and a 9.1/20lb weight loss over the last 2 years. Labs: Hgb/Hct today 11.6/34.9, BUN 34 yesterday, CRP 2.6 yesterday with albumin of 3.0. NFPE not performed - pt declined d/t tired at the time. Visually, there is mild scooping to the temporal region and mild to moderate clavicular protrusion. Auggey has an inconsistent intake related to housing insecurities, substance use, and low food budget. Usual diet initially assessed as high in shelf stable food products - low in fiber and micronutrients. When asked about recent intake patient states the last 2 weeks hasn't felt like eating much at all due to pain - related this to weight loss above. Would estimate with weight loss seen and patient account, that he has averaged <800kcals over the two week period prior to admission. Estimated energy needs: 1740kcals, 66-83g protein (1.2-1.5g/kg), 1650-1925mL fluid per day (30-35mL per kg) Nutrition Dx: Severe malnutrition (E43) in the setting of acute illness/injury (pain related to lumbar abscess and endocarditis chest pain) with contributing environmental/social factors (housing instability and chronic substance use). This is identified by a documented >5% wt loss x 2week period that patient confirmed as well as associated reduction in intake by over 50% or more over the last 2 week period. Intervention: patient interested in vanilla flavored ONS TID with meals to support his oral intake which has been good over his admission so far. patient took my card to contact for any outpatient nutritions guidance. Suggested he get in touch with community [employer] program for help navigating resources after discharge. Will plan a discharge bag with food items to help immediately after d/c Recommendations to provider: *order multivitamin/multi mineral tab Monitoring: will monitor weight, intake, nutrition-related labs. Time Spent in Nutritional Counseling and Treatment: 5 min
[2025-05-22] MEDS: Normal Saline Flush 10 ML SYR IVP ×6 (02:30→19:29)
[2025-05-22] MEDS: Ketorolac 15 MG/ML VIAL IVP ×2 (02:30→14:56)
[2025-05-22] MEDS: Acetaminophen 325 MG TAB PO ×2 (02:30→08:43)
[2025-05-22] MEDS: ceFAZolin 2 GM/50 ML BAG IVPB ×3 (04:16→19:29)
[2025-05-22 07:47] VITALS: BP 100/59; PULSE 52; RESP 16; TEMP 36.3; O2SAT 98
[2025-05-22] MEDS: Nicotine 21 MG/24 HR PATCH TD (08:42)
[2025-05-22] MEDS: Methadone Liquid 10 MG/ML 140 MG PO (08:44)
[2025-05-22] MEDS: Polyethylene Glycol 3350 17 GM PACKET PO (11:35)
[2025-05-22] MEDS: Docusate Sodium 100 MG CAP PO (11:35)
--- NOTE | 2025-05-22 14:54 | W.PM.PROGNOT ---
Date of Service Date of service: 05/23/25 Time of Service: 18:24 Assessment and Plan Assessment and plan (1) Endocarditis of tricuspid valve: Status: Acute Assessment and plan: Ongoing course of Ancef 2 g Q8 until 06/22/2025 Patient is ambulating - Dustin /GENEVA risk score low - will stop LMWH (2) Abscess in epidural space of L2-L5 lumbar spine: Status: Acute Assessment and plan: Ongoing course of Ancef 2 g Q8 until 06/22/2025 Scheduled APAP and PRN Ketorolac for pain As above Labs in AM : CMP, CBC , ESR , Mg Imaging s/p antibiotic course recommended on d/c summary Imaging PRN S&S of treatment failure (3) Severe malnutrition: Status: Acute Assessment and plan: in the setting of acute illness/injury (pain related to lumbar abscess and endocarditis chest pain) with contributing environmental/social factors (housing instability and chronic substance use). This is identified by a documented >5% wt loss x 2week period that patient confirmed as well as associated reduction in intake by over 50% or more over the last 2 week period. As per nutrition consult form 05/21/25 - please read notes MVI with minerals Milkshake/ supplement TID with meals Ongoing nutrition consultation (4) Tobacco abuse: Status: Acute Assessment and plan: Ongoing NRT (5) IV drug abuse: Status: Acute Assessment and plan: Noted as per Hx Ongoing daily methodone dosing (6) Hep C w/o coma, chronic: Status: Acute Assessment and plan: As per discharge notes from [facility] not detectable viral load pointing to inactive VS treated Hep C discussed with Dr. Mccabe Subjective Subjective Patient reports: feels better, pain is less, tolerating liquids well, tolerating a regular diet, voiding w/o difficulty and no bowel movement; denies diarrhea, nausea, vomiting, shortness of breath or fever Exam Narrative Exam Narrative: 49 yo thin male patient appearing older than stated age,A&O X4 , no acute distress, moist mucous membranes with hollow cheeks d/t reduced fat , no lymphadenopathy no JVD, neurologically intact; lungs are clear to auscultation , heart is regular rate and rhythm no murmur. Abdomen is non-distended soft non-tender bowel sounds are present, RASS 0, congruent mood and affect, anxious at times regarding worsening of his abscesses- easily reassured Objective Last Vital Signs Temp 36.3 C L 05/22/25 07:47 Pulse 52 L 05/22/25 07:47 Resp 16 05/22/25 07:47 BP 100/59 L 05/22/25 07:47 Pulse Ox 98 05/22/25 07:47 Time Spent with Patient Time Spent with Patient: >50 minutes Time was spent: preparing to see the patient(eg.review tests), obtaining and/or reviewing separately otained hiistory, ordering medications,tests, procedures, referring, communicating with other health senior care specialist, indepentently interpreting results, counseling the patient, care coordination and other
[2025-05-22] MEDS: Milk of Magnesia 30 ML CUP PO (17:34)
[2025-05-22] MEDS: Enoxaparin 40 MG/0.4 ML SYR SC (17:34)
[2025-05-22] MEDS: Nicotine 2 MG GUM CH (17:34)
[2025-05-22 19:24] VITALS: BP 102/53; PULSE 57; RESP 14; TEMP 36.8; O2SAT 99
[2025-05-23] MEDS: Ketorolac 15 MG/ML VIAL IVP ×3 (00:01→15:03)
[2025-05-23] MEDS: Acetaminophen 325 MG TAB PO ×3 (00:01→15:03)
[2025-05-23] MEDS: ceFAZolin 2 GM/50 ML BAG IVPB ×3 (04:26→20:10)
[2025-05-23] MEDS: Normal Saline Flush 10 ML SYR IVP ×5 (04:26→20:11)
[2025-05-23 07:38] VITALS: BP 101/64; PULSE 61; RESP 16; TEMP 36; O2SAT 99
[2025-05-23] MEDS: Methadone Liquid 10 MG/ML 140 MG PO (08:40)
[2025-05-23] MEDS: Polyethylene Glycol 3350 17 GM PACKET PO (08:42)
[2025-05-23] MEDS: Milk of Magnesia 30 ML CUP PO (08:42)
[2025-05-23] MEDS: Docusate Sodium 100 MG CAP PO (08:42)
[2025-05-23] MEDS: Nicotine 21 MG/24 HR PATCH TD (08:42)
[2025-05-23] MEDS: Enoxaparin 40 MG/0.4 ML SYR SC (18:22)
[2025-05-23 19:06] VITALS: BP 99/60; PULSE 50; RESP 14; TEMP 36.5; O2SAT 95
[2025-05-23] MEDS: Multivitamin w/Minerals TAB 1 TAB PO (22:38)
[2025-05-24] MEDS: ceFAZolin 2 GM/50 ML BAG IVPB ×3 (03:52→19:35)
[2025-05-24] MEDS: Normal Saline Flush 10 ML SYR IVP ×3 (03:52→19:36)
[2025-05-24 05:26] LABS: Abs Immature Grans 0.02 10^3/uL (0.0-0.06); HCT 29.8 % (40.0-50.0); HGB 9.6 g/dL (13.5-17.5); Immature Grans % 0.2 %; MCH 30.6 pg (27.0-33.0); MCHC 32.2 % (32.0-36.0); MCV 95 fL (80-95); MPV 8.7 fL (8.0-11.0); Platelet Count 452 10^3/uL (130-400); RBC 3.14 10^6/uL (4.36-5.78); RDW 13.5 % (11.8-14.1); RDW-SD 46.9 fL; WBC 8.23 10^3/uL (4.4-10.8)
[2025-05-24 05:43] LABS: ALT 12 U/L (16-63); AST 16 U/L (15-37); Albumin 2.5 g/dL (3.4-5.0); Alkaline Phosphatase 90 U/L (46-116); Anion Gap 1.0 mmol/L (3-11); BUN 38 mg/dL (7-18); Bilirubin, Total 0.1 mg/dL (0.2-1.0); CO2 33.0 mmol/L (21.0-32.0); Calcium 9.0 mg/dL (8.5-10.1); Chloride 101 mmol/L (98-107); Estimated GFR 93.42 (mL/min/1.73m2); Glucose 91 mg/dL (74-106); Magnesium 2.3 mg/dL (1.8-2.4); Potassium 5.4 mmol/L (3.5-5.1); Sodium 135 mmol/L (136-145); Total Protein 7.1 g/dL (6.4-8.2)
[2025-05-24 05:51] LABS: C-Reactive Protein 2.10 mg/dL (<or=0.5)
[2025-05-24 07:15] VITALS: BP 93/48; PULSE 56; RESP 16; TEMP 36.6; O2SAT 98
[2025-05-24] MEDS: Multivitamin w/Minerals TAB 1 TAB PO ×2 (08:44→19:33)
[2025-05-24] MEDS: Nicotine 21 MG/24 HR PATCH TD (08:44)
[2025-05-24] MEDS: Docusate Sodium 100 MG CAP PO (08:44)
[2025-05-24] MEDS: Methadone Liquid 10 MG/ML 140 MG PO (08:45)
[2025-05-24] MEDS: Ketorolac 15 MG/ML VIAL IVP (08:56)
[2025-05-24 10:56] LABS: Iron 61 ug/dL (65-175); Total Iron Binding Capacity 311 ug/dL (250-450); Transferrin Sat 20 % (20-55)
[2025-05-24 11:25] LABS: Folate 8.0 ng/mL (8.6-20.0); Vitamin B12 333 pg/mL (193-986)
--- NOTE | 2025-05-24 17:20 | CMACTNOTE_ITS ---
Date of service: 05/24/25 Time of Service: 17:20 Care Management Activity Note Activity Note Text Activity Note Text: Prabha has been walking around the halls and watching TV to keep himself busy during this prolonged hospitalization. EDGAR met with him, and he expressed concern about housing, as he has received an eviction notice which will be in effect on 06/17/25. He has been connected with [employer], and EDGAR provided the phone number to [facility], at his request, as he would like to apply for low income housing. EDGAR will continue to follow and support Prabha's life enrichment during this swingbed stay.
[2025-05-24] MEDS: Enoxaparin 40 MG/0.4 ML SYR SC (17:28)
[2025-05-24 19:18] VITALS: BP 101/56; PULSE 60; RESP 14; TEMP 36.9; O2SAT 98
[2025-05-24] MEDS: Acetaminophen 325 MG TAB PO (19:34)
[2025-05-24] MEDS: Sodium Zirconium Cyclosilicate 10 GM PKT PO (19:35)
[2025-05-25] MEDS: ceFAZolin 2 GM/50 ML BAG IVPB ×3 (04:47→20:29)
[2025-05-25] MEDS: Ketorolac 15 MG/ML VIAL IVP (06:40)
[2025-05-25] MEDS: Acetaminophen 325 MG TAB PO ×2 (06:40→21:09)
[2025-05-25 06:50] LABS: Anion Gap 4.2 mmol/L (3-11); BUN 36 mg/dL (7-18); CO2 30.8 mmol/L (21.0-32.0); Calcium 9.2 mg/dL (8.5-10.1); Chloride 101 mmol/L (98-107); Estimated GFR 93.42 (mL/min/1.73m2); Glucose 120 mg/dL (74-106); Potassium 5.2 mmol/L (3.5-5.1); Sodium 136 mmol/L (136-145)
[2025-05-25 08:11] VITALS: BP 96/58; PULSE 50; RESP 16; TEMP 35.8; O2SAT 98
[2025-05-25] MEDS: Methadone Liquid 10 MG/ML 140 MG PO (08:20)
[2025-05-25] MEDS: Multivitamin w/Minerals TAB 1 TAB PO ×2 (09:25→20:29)
[2025-05-25] MEDS: Nicotine 21 MG/24 HR PATCH TD (09:25)
[2025-05-25 10:36] LABS: Anion Gap 4.4 mmol/L (3-11); BUN 41 mg/dL (7-18); CO2 30.6 mmol/L (21.0-32.0); Calcium 9.2 mg/dL (8.5-10.1); Chloride 102 mmol/L (98-107); Estimated GFR 83.32 (mL/min/1.73m2); Glucose 127 mg/dL (74-106); Potassium 5.2 mmol/L (3.5-5.1); Sodium 137 mmol/L (136-145)
[2025-05-25 19:25] VITALS: BP 109/62; PULSE 57; RESP 15; TEMP 36.2; O2SAT 99
[2025-05-26] MEDS: Polyethylene Glycol 3350 17 GM PACKET PO (00:14)
[2025-05-26] MEDS: Docusate Sodium 100 MG CAP PO (00:14)
[2025-05-26] MEDS: Ketorolac 15 MG/ML VIAL IVP ×2 (00:14→19:28)
[2025-05-26] MEDS: ceFAZolin 2 GM/50 ML BAG IVPB ×3 (03:59→20:30)
[2025-05-26] MEDS: Multivitamin w/Minerals TAB 1 TAB PO ×2 (08:41→20:31)
[2025-05-26] MEDS: Nicotine 21 MG/24 HR PATCH TD (08:41)
[2025-05-26] MEDS: Methadone Liquid 10 MG/ML 140 MG PO (08:41)
[2025-05-26 08:47] VITALS: BP 124/69; PULSE 52; RESP 16; TEMP 35.9; O2SAT 100
[2025-05-26] MEDS: Nicotine 2 MG GUM CH (09:34)
[2025-05-26 19:28] VITALS: BP 96/54; PULSE 57; RESP 16; TEMP 36.4; O2SAT 98
[2025-05-26] MEDS: Acetaminophen 325 MG TAB PO (19:28)
[2025-05-27] MEDS: ceFAZolin 2 GM/50 ML BAG IVPB ×3 (03:37→19:58)
[2025-05-27 08:51] VITALS: BP 120/72; PULSE 57; RESP 16; TEMP 36.4; O2SAT 100
[2025-05-27] MEDS: Methadone Liquid 10 MG/ML 140 MG PO (08:54)
[2025-05-27] MEDS: Nicotine 21 MG/24 HR PATCH TD (08:57)
[2025-05-27] MEDS: Nicotine 2 MG GUM CH (08:57)
[2025-05-27] MEDS: Multivitamin w/Minerals TAB 1 TAB PO ×2 (08:57→19:58)
[2025-05-27] MEDS: Acetaminophen 325 MG TAB PO ×2 (09:01→19:57)
[2025-05-27 19:30] VITALS: BP 100/57; PULSE 56; RESP 15; TEMP 36.5; O2SAT 98
[2025-05-27] MEDS: Normal Saline Flush 10 ML SYR IVP (19:59)
[2025-05-28] MEDS: ceFAZolin 2 GM/50 ML BAG IVPB ×3 (04:23→20:28)
[2025-05-28] MEDS: Normal Saline Flush 10 ML SYR IVP ×3 (04:24→20:28)
[2025-05-28 08:18] VITALS: BP 115/74; PULSE 60; RESP 16; TEMP 36.6; O2SAT 100
[2025-05-28] MEDS: Methadone Liquid 10 MG/ML 140 MG PO (08:51)
[2025-05-28] MEDS: Multivitamin w/Minerals TAB 1 TAB PO ×2 (08:52→20:29)
[2025-05-28] MEDS: Nicotine 21 MG/24 HR PATCH TD (08:52)
[2025-05-28 12:00] LABS: Glucose Negative (Negative)
[2025-05-28 12:09] LABS: Anion Gap 9.0 mmol/L (3-11); BUN 40 mg/dL (7-18); CO2 29.0 mmol/L (21.0-32.0); Calcium 9.6 mg/dL (8.5-10.1); Chloride 99 mmol/L (98-107); Estimated GFR 106.01 (mL/min/1.73m2); Glucose 102 mg/dL (74-106); Potassium 5.2 mmol/L (3.5-5.1); Sodium 137 mmol/L (136-145)
[2025-05-28] MEDS: Sodium Zirconium Cyclosilicate 10 GM PKT PO (12:35)
[2025-05-28 19:38] VITALS: BP 112/68; PULSE 58; RESP 16; TEMP 36.3; O2SAT 99
[2025-05-29] MEDS: ceFAZolin 2 GM/50 ML BAG IVPB ×3 (04:24→20:34)
[2025-05-29] MEDS: Normal Saline Flush 10 ML SYR IVP ×3 (04:25→20:35)
[2025-05-29] MEDS: Acetaminophen 325 MG TAB PO (04:33)
[2025-05-29 07:00] VITALS: BP 104/61; PULSE 54; RESP 16; TEMP 35.4; O2SAT 99
[2025-05-29] MEDS: Folic Acid 1 MG TAB PO (08:36)
[2025-05-29] MEDS: Nicotine 21 MG/24 HR PATCH TD (08:36)
[2025-05-29] MEDS: Nicotine 2 MG GUM CH (08:36)
[2025-05-29] MEDS: Multivitamin w/Minerals TAB 1 TAB PO ×2 (08:36→20:34)
[2025-05-29] MEDS: Methadone Liquid 10 MG/ML 140 MG PO (08:38)
--- NOTE | 2025-05-29 11:58 | NUR.NOTE ---
Nursing Note: Pt talked with this nurse about needing an application for housing, Shift RN aware.
--- NOTE | 2025-05-29 17:30 | CHAPLAIN ---
Prabha was resting in bed when I visited. The lights were off and and the tv was on. He's been here about 10 days and said he's gotten his nights and days mixed up and is awake at night often. He said he's in touch with friends by phone. He asked for helping trying to find a phone number for what turned about to be [employer], which was a number Care Management has already provided for him. I will continue to visit.
[2025-05-29 19:04] VITALS: BP 112/59; PULSE 62; RESP 16; TEMP 36.7; O2SAT 99
[2025-05-30] MEDS: ceFAZolin 2 GM/50 ML BAG IVPB ×3 (04:37→22:04)
[2025-05-30 07:06] VITALS: BP 101/64; PULSE 56; RESP 16; TEMP 37.1; O2SAT 100
[2025-05-30] MEDS: Folic Acid 1 MG TAB PO (09:13)
[2025-05-30] MEDS: Nicotine 21 MG/24 HR PATCH TD (09:13)
[2025-05-30] MEDS: Multivitamin w/Minerals TAB 1 TAB PO ×2 (09:13→22:04)
[2025-05-30] MEDS: Methadone Liquid 10 MG/ML 140 MG PO (09:13)
[2025-05-30] MEDS: Nicotine 2 MG GUM CH (09:18)
[2025-05-30 19:32] VITALS: BP 103/68; PULSE 58; RESP 16; TEMP 36.7; O2SAT 99
[2025-05-30] MEDS: Acetaminophen 325 MG TAB PO (22:04)
[2025-05-31] MEDS: ceFAZolin 2 GM/50 ML BAG IVPB ×3 (06:41→22:29)
[2025-05-31 07:41] VITALS: BP 110/71; PULSE 91; RESP 16; TEMP 36; O2SAT 98
[2025-05-31] MEDS: Folic Acid 1 MG TAB PO (09:03)
[2025-05-31] MEDS: Multivitamin w/Minerals TAB 1 TAB PO ×2 (09:03→20:19)
[2025-05-31] MEDS: Methadone Liquid 10 MG/ML 140 MG PO (09:04)
[2025-05-31] MEDS: Nicotine 21 MG/24 HR PATCH TD (09:04)
[2025-05-31] MEDS: Acetaminophen 325 MG TAB PO ×2 (09:11→14:51)
[2025-05-31] MEDS: Nicotine 2 MG GUM CH (10:06)
[2025-05-31] MEDS: Normal Saline Flush 10 ML SYR IVP ×2 (10:16→14:52)
[2025-05-31] MEDS: Ketorolac 15 MG/ML VIAL IVP (10:16)
--- NOTE | 2025-05-31 10:16 | CMACTNOTE_ITS ---
Date of service: 05/31/25 Time of Service: 10:16 Care Management Activity Note Activity Note Text Activity Note Text: Prabha was awake and lying in bed when CM met with him. He continues to endorse concerns about being evicted on 06/17, and isn't quite sure what his girlfriend is going to do because she doesnt have any local family or friends. He hasn't seen her in 3 days and is unsure when he will see her again because her phone was stolen. He is working with CHW from [employer] and [employer] He received two [employer] applications today, one for himself and the other for his girlfriend. He is planning to meet with a CHW for assistance with completing it, noting that he has questions about his income and difficulty with reading. During his prolonged hospitalization Prabha has been walking the halls and watching TV to keep himself occupied. CM offered him activities from the activity cart, but he declines. CM will continue to follow and support Prabha's life enrichment during this swingbed stay.
[2025-06-01] MEDS: ceFAZolin 2 GM/50 ML BAG IVPB ×3 (05:40→21:58)
[2025-06-01 07:27] VITALS: BP 111/66; PULSE 52; RESP 16; TEMP 36.9; O2SAT 99
[2025-06-01] MEDS: Acetaminophen 325 MG TAB PO (09:39)
[2025-06-01] MEDS: Methadone Liquid 10 MG/ML 140 MG PO (09:39)
[2025-06-01] MEDS: Folic Acid 1 MG TAB PO (09:40)
[2025-06-01] MEDS: Multivitamin w/Minerals TAB 1 TAB PO ×2 (09:40→20:08)
[2025-06-01] MEDS: Nicotine 21 MG/24 HR PATCH TD (09:40)
[2025-06-01] MEDS: Milk of Magnesia 30 ML CUP PO (09:50)
[2025-06-01] MEDS: Normal Saline Flush 10 ML SYR IVP ×2 (14:46→21:59)
[2025-06-01 19:29] VITALS: BP 98/51; PULSE 53; RESP 15; TEMP 36.2; O2SAT 100
[2025-06-02] MEDS: Acetaminophen 325 MG TAB PO ×3 (00:18→21:05)
[2025-06-02] MEDS: Normal Saline Flush 10 ML SYR IVP ×3 (05:32→21:06)
[2025-06-02] MEDS: ceFAZolin 2 GM/50 ML BAG IVPB ×3 (05:32→21:06)
[2025-06-02 07:19] VITALS: BP 114/70; PULSE 55; RESP 17; TEMP 36.2; O2SAT 100
[2025-06-02] MEDS: Nicotine 21 MG/24 HR PATCH TD (08:04)
[2025-06-02] MEDS: Methadone Liquid 10 MG/ML 140 MG PO (08:05)
[2025-06-02] MEDS: Multivitamin w/Minerals TAB 1 TAB PO ×2 (08:05→21:05)
[2025-06-02] MEDS: Folic Acid 1 MG TAB PO (08:05)
[2025-06-02] MEDS: Milk of Magnesia 30 ML CUP PO (09:35)
[2025-06-03] MEDS: ceFAZolin 2 GM/50 ML BAG IVPB ×3 (06:23→21:37)
[2025-06-03 07:37] VITALS: BP 121/73; PULSE 53; RESP 16; TEMP 36.7; O2SAT 98
[2025-06-03] MEDS: Multivitamin w/Minerals TAB 1 TAB PO ×2 (08:13→20:10)
[2025-06-03] MEDS: Nicotine 21 MG/24 HR PATCH TD (08:13)
[2025-06-03] MEDS: Nicotine 2 MG GUM CH (08:13)
[2025-06-03] MEDS: Folic Acid 1 MG TAB PO (08:13)
[2025-06-03] MEDS: Methadone Liquid 10 MG/ML 140 MG PO (08:14)
[2025-06-03] MEDS: Milk of Magnesia 30 ML CUP PO (12:43)
[2025-06-03 19:10] VITALS: BP 114/83; PULSE 63; RESP 18; TEMP 36.8; O2SAT 98
[2025-06-04] MEDS: ceFAZolin 2 GM/50 ML BAG IVPB ×3 (05:48→21:47)
[2025-06-04 07:22] VITALS: BP 98/68; PULSE 53; RESP 18; TEMP 36.5; O2SAT 100
[2025-06-04] MEDS: Normal Saline Flush 10 ML SYR IVP (08:41)
[2025-06-04] MEDS: Nicotine 2 MG GUM CH (08:41)
[2025-06-04] MEDS: Nicotine 21 MG/24 HR PATCH TD (08:41)
[2025-06-04] MEDS: Folic Acid 1 MG TAB PO (08:42)
[2025-06-04] MEDS: Multivitamin w/Minerals TAB 1 TAB PO ×2 (08:42→19:53)
[2025-06-04] MEDS: Methadone Liquid 10 MG/ML 140 MG PO (08:42)
--- NOTE | 2025-06-04 11:40 | PDOC.CMACT ---
Date of service: 06/04/25 Time of Service: 11:40 Care Management Activity Note Activity Note Text Activity Note Text: Prabha requires assistance completing a [employer] application and expresses that he continues to have questions regarding his income as his previous employment did not require him to have a W2. EDGAR spoke with CHCristy Killian from [employer] and she is planning to come to the hospital to support the patient in filling out this application by tomorrow afternoon. CM will follow.
--- NOTE | 2025-06-04 12:18 | W.PM.PROGNOT ---
Date of Service Date of service: 06/04/25 Time of Service: 12:18 Assessment and Plan Assessment and plan (1) Endocarditis of tricuspid valve: Status: Acute Assessment and plan: Continue Ancef 2 g IV q8h until 06/22/25. Ambulating; Dustin/Mcdowell score low; no DVT prophylaxis (2) Abscess in epidural space of L2-L5 lumbar spine: Status: Acute Assessment and plan: Continue Ancef as above. Pain: scheduled APAP, PRN ketorolac. Labs today pending: CBC, CMP, CRP Imaging at completion of antibiotics (per d/c summary) or sooner if symptoms worsen. (3) Severe malnutrition: Status: Acute Assessment and plan: Likely multifactorial (infection, pain, housing instability, substance use). 5% weight loss over 2 wks, reduced intake >50%. Nutrition consult 05/21/25 reviewed. MVI with minerals, supplement shakes TID with meals, ongoing motor coach chauffeur follow-up. (4) Tobacco abuse: Status: Acute Assessment and plan: Continue NRT. (5) IV drug abuse: Status: Acute Assessment and plan: Continue daily methadone dosing. (6) Hep C w/o coma, chronic: Status: Acute Assessment and plan: Viral load not detectable per [place] discharge summary. No acute intervention needed. Discussed with Dr Pérez. Subjective Subjective Patient reports: no new complaints, feels better, tolerating liquids well, tolerating a regular diet, voiding w/o difficulty, bowel movement and afebrile; denies diarrhea, nausea or vomiting Interval history since last seen: The patient is currently undergoing long-term IV antibiotic therapy with gradual progress in managing their infection. There are no significant adverse reactions noted. Overall, the patient is adhering well to the treatment regimen and remains stable. Continued monitoring and adjustment of therapy will be necessary to ensure optimal outcomes. Exam Narrative Exam Narrative: Patient afebrile, hemodynamically stable, in no acute distress. General: Thin male, older appearing than stated age, alert and oriented ?4, no acute distress. HEENT: Moist mucous membranes, hollow cheeks, no lymphadenopathy, no JVD. Neuro: Intact, moves all extremities, normal strength and sensation. Cardiac: Regular rate and rhythm, no murmurs. Respiratory: Clear to auscultation bilaterally, no wheezes, rales, or rhonchi. Abdomen: Soft, non-distended, non-tender, bowel sounds present. Psych: Mood and affect congruent, anxious at times but easily reassured. Objective Last Vital Signs Temp 36.5 C 06/04/25 07:22 Pulse 53 L 06/04/25 07:22 Resp 18 06/04/25 07:22 BP 98/68 L 06/04/25 07:22 Pulse Ox 100 06/04/25 07:22 Time Spent with Patient Time Spent with Patient: 35-49 minutes Time was spent: preparing to see the patient(eg.review tests), ordering medications,tests, procedures, indepentently interpreting results, counseling the patient and care coordination
[2025-06-04] MEDS: Acetaminophen 325 MG TAB PO (14:27)
[2025-06-04] MEDS: Milk of Magnesia 30 ML CUP PO (14:28)
[2025-06-04 14:53] LABS: Abs Immature Grans 0.05 10^3/uL (0.0-0.06); HCT 33.0 % (40.0-50.0); HGB 10.8 g/dL (13.5-17.5); Immature Grans % 0.6 %; MCH 30.8 pg (27.0-33.0); MCHC 32.7 % (32.0-36.0); MCV 94 fL (80-95); MPV 9.1 fL (8.0-11.0); Platelet Count 284 10^3/uL (130-400); RBC 3.51 10^6/uL (4.36-5.78); RDW 13.9 % (11.8-14.1); RDW-SD 47.4 fL; WBC 8.15 10^3/uL (4.4-10.8)
[2025-06-04 15:09] LABS: ALT 15 U/L (16-63); AST 20 U/L (15-37); Albumin 3.1 g/dL (3.4-5.0); Alkaline Phosphatase 106 U/L (46-116); Anion Gap 6.9 mmol/L (3-11); BUN 40 mg/dL (7-18); Bilirubin, Total 0.2 mg/dL (0.2-1.0); C-Reactive Protein 0.88 mg/dL (<or=0.5); CO2 28.1 mmol/L (21.0-32.0); Calcium 9.0 mg/dL (8.5-10.1); Chloride 100 mmol/L (98-107); Estimated GFR 68.19 (mL/min/1.73m2); Glucose 132 mg/dL (74-106); Potassium 4.7 mmol/L (3.5-5.1); Sodium 135 mmol/L (136-145); Total Protein 8.0 g/dL (6.4-8.2)
[2025-06-04 21:48] VITALS: BP 107/74; PULSE 55; RESP 18; TEMP 35.8; O2SAT 99
[2025-06-05] MEDS: ceFAZolin 2 GM/50 ML BAG IVPB ×3 (05:20→21:48)
[2025-06-05 06:59] VITALS: BP 106/72; PULSE 55; RESP 16; TEMP 37; O2SAT 99
[2025-06-05] MEDS: Multivitamin w/Minerals TAB 1 TAB PO ×2 (08:18→20:11)
[2025-06-05] MEDS: Folic Acid 1 MG TAB PO (08:18)
[2025-06-05] MEDS: Nicotine 21 MG/24 HR PATCH TD (08:18)
[2025-06-05] MEDS: Methadone Liquid 10 MG/ML 140 MG PO (08:19)
[2025-06-05] MEDS: Nicotine 2 MG GUM CH (08:43)
--- NOTE | 2025-06-05 16:35 | CMACTNOTE_ITS ---
Date of service: 06/07/25 Time of Service: 09:11 Care Management Activity Note Activity Note Text Activity Note Text: Prabha was awake and sitting up in bed when CM met with him. He continues to express concerns about potential eviction on 06/17 and is working with a CHW from [employer] on housing options and has completed a [employer] application. He is also planning to submit an application for [facility]. Per pt, he does not have an ID and his CHW is looking into the process of obtain a new one. During his prolonged hospitalization Prabha has been walking the halls and watching TV to keep himself occupied. CM continues to offer him activities from the activity cart, but he declines. CM will continue to follow and support Prabha's life enrichment during this swing bed stay which is expected to end on 06/22/25, following completion of his IV ABX course. CM will follow.
[2025-06-05] MEDS: Milk of Magnesia 30 ML CUP PO (17:23)
[2025-06-05 19:29] VITALS: BP 102/71; PULSE 56; RESP 16; TEMP 36.7; O2SAT 98
[2025-06-06] MEDS: ceFAZolin 2 GM/50 ML BAG IVPB ×3 (05:38→21:50)
[2025-06-06 06:56] VITALS: BP 119/74; PULSE 57; RESP 16; TEMP 36.5; O2SAT 99
[2025-06-06] MEDS: Methadone Liquid 10 MG/ML 140 MG PO (08:11)
[2025-06-06] MEDS: Multivitamin w/Minerals TAB 1 TAB PO ×2 (08:12→19:32)
[2025-06-06] MEDS: Nicotine 21 MG/24 HR PATCH TD (08:12)
[2025-06-06] MEDS: Nicotine 2 MG GUM CH (08:12)
[2025-06-06] MEDS: Folic Acid 1 MG TAB PO (08:13)
[2025-06-06] MEDS: Milk of Magnesia 30 ML CUP PO (08:57)
[2025-06-06 19:34] VITALS: BP 102/69; PULSE 54; RESP 16; TEMP 36; O2SAT 94
[2025-06-06] MEDS: Normal Saline Flush 10 ML SYR IVP (21:50)
[2025-06-07] MEDS: ceFAZolin 2 GM/50 ML BAG IVPB ×3 (05:42→21:00)
[2025-06-07] MEDS: Normal Saline Flush 10 ML SYR IVP ×2 (05:42→07:59)
[2025-06-07] MEDS: Acetaminophen 325 MG TAB PO ×2 (06:27→18:26)
[2025-06-07] MEDS: Milk of Magnesia 30 ML CUP PO (06:29)
[2025-06-07 07:14] VITALS: BP 128/78; PULSE 55; RESP 16; TEMP 36.5; O2SAT 99
[2025-06-07] MEDS: Multivitamin w/Minerals TAB 1 TAB PO ×2 (08:00→21:00)
[2025-06-07] MEDS: Nicotine 21 MG/24 HR PATCH TD (08:00)
[2025-06-07] MEDS: Ketorolac 15 MG/ML VIAL IVP (08:00)
[2025-06-07] MEDS: Folic Acid 1 MG TAB PO (08:00)
[2025-06-07] MEDS: Methadone Liquid 10 MG/ML 140 MG PO (08:52)
[2025-06-07] MEDS: Polyethylene Glycol 3350 17 GM PACKET PO (15:07)
[2025-06-07] MEDS: Docusate Sodium 100 MG CAP PO (15:07)
[2025-06-08] MEDS: ceFAZolin 2 GM/50 ML BAG IVPB ×3 (06:24→21:10)
[2025-06-08] MEDS: Normal Saline Flush 10 ML SYR IVP (06:25)
[2025-06-08 07:19] VITALS: BP 131/87; PULSE 58; RESP 17; TEMP 36.5; O2SAT 99
[2025-06-08] MEDS: Multivitamin w/Minerals TAB 1 TAB PO ×2 (08:18→21:10)
[2025-06-08] MEDS: Methadone Liquid 10 MG/ML 140 MG PO (08:18)
[2025-06-08] MEDS: Nicotine 21 MG/24 HR PATCH TD (08:18)
[2025-06-08] MEDS: Folic Acid 1 MG TAB PO (08:18)
[2025-06-08 19:40] VITALS: BP 119/71; PULSE 59; RESP 16; TEMP 36.2; O2SAT 99
[2025-06-09] MEDS: ceFAZolin 2 GM/50 ML BAG IVPB ×3 (06:29→21:10)
[2025-06-09] MEDS: Nicotine 21 MG/24 HR PATCH TD (08:44)
[2025-06-09] MEDS: Milk of Magnesia 30 ML CUP PO (08:44)
[2025-06-09] MEDS: Methadone Liquid 10 MG/ML 140 MG PO (08:45)
[2025-06-09] MEDS: Folic Acid 1 MG TAB PO (08:45)
[2025-06-09] MEDS: Nicotine 2 MG GUM CH (08:45)
[2025-06-09] MEDS: Multivitamin w/Minerals TAB 1 TAB PO ×2 (08:45→21:10)
[2025-06-09] MEDS: Normal Saline Flush 10 ML SYR IVP (08:46)
[2025-06-09 08:52] VITALS: BP 140/86; PULSE 54; RESP 16; TEMP 36.9; O2SAT 99
[2025-06-09] MEDS: Lactobacillus Acidophilus CAP 1 CAP PO ×2 (14:24→21:10)
[2025-06-09 19:22] VITALS: BP 98/69; PULSE 58; RESP 18; TEMP 36; O2SAT 98
--- NOTE | 2025-06-10 06:14 | W.NUTRFU ---
Date of service: 06/10/25 Time of Service: 06:14 Nutrition Note NOTE: brief follow up as Prabha has gained back 10kg over this longer admission (in swing bed d/t [facility]). Eating very well at meal times - trays are full of food and beverages. Getting around and walking in the halls and watching tv. No current concerns with intake or weight. Expected to d/c early June Time Spent in Nutritional Counseling and Treatment: 5 min
[2025-06-10 06:55] VITALS: BP 138/81; PULSE 63; RESP 16; TEMP 36.6; O2SAT 98
[2025-06-10] MEDS: ceFAZolin 2 GM/50 ML BAG IVPB ×3 (07:00→20:40)
[2025-06-10] MEDS: Folic Acid 1 MG TAB PO (08:12)
[2025-06-10] MEDS: Multivitamin w/Minerals TAB 1 TAB PO ×2 (08:12→20:40)
[2025-06-10] MEDS: Lactobacillus Acidophilus CAP 1 CAP PO ×3 (08:12→20:40)
[2025-06-10] MEDS: Methadone Liquid 10 MG/ML 140 MG PO (08:12)
[2025-06-10] MEDS: Nicotine 21 MG/24 HR PATCH TD (08:12)
[2025-06-10] MEDS: Normal Saline Flush 10 ML SYR IVP ×2 (08:13→15:28)
[2025-06-10] MEDS: Nicotine 2 MG GUM CH (08:13)
[2025-06-10 08:24] VITALS: BP 128/82; PULSE 59; RESP 18; TEMP 36; O2SAT 99
[2025-06-11] MEDS: ceFAZolin 2 GM/50 ML BAG IVPB ×3 (05:50→21:05)
[2025-06-11 08:10] VITALS: BP 119/92; PULSE 63; RESP 17; TEMP 36.6; O2SAT 99
[2025-06-11] MEDS: Folic Acid 1 MG TAB PO (08:51)
[2025-06-11] MEDS: Nicotine 2 MG GUM CH (08:51)
[2025-06-11] MEDS: Nicotine 21 MG/24 HR PATCH TD (08:51)
[2025-06-11] MEDS: Lactobacillus Acidophilus CAP 1 CAP PO ×3 (08:51→21:05)
[2025-06-11] MEDS: Multivitamin w/Minerals TAB 1 TAB PO ×2 (08:51→21:05)
[2025-06-11] MEDS: Methadone Liquid 10 MG/ML 140 MG PO (08:53)
[2025-06-11 19:48] VITALS: BP 112/82; PULSE 67; RESP 18; TEMP 36.1; O2SAT 95
[2025-06-11] MEDS: Acetaminophen 325 MG TAB PO (21:05)
[2025-06-11] MEDS: Docusate Sodium 100 MG CAP PO (21:05)
[2025-06-12 04:12] VITALS: BP 131/85; PULSE 56; RESP 22; TEMP 36.7; O2SAT 100
[2025-06-12 06:44] VITALS: BP 123/80; PULSE 54; RESP 15; TEMP 35.9; O2SAT 100
[2025-06-12] MEDS: ceFAZolin 2 GM/50 ML BAG IVPB ×3 (06:48→22:28)
[2025-06-12] MEDS: Lactobacillus Acidophilus CAP 1 CAP PO ×3 (08:22→22:27)
[2025-06-12] MEDS: Folic Acid 1 MG TAB PO (08:22)
[2025-06-12] MEDS: Multivitamin w/Minerals TAB 1 TAB PO ×2 (08:22→22:27)
[2025-06-12] MEDS: Nicotine 21 MG/24 HR PATCH TD (08:22)
[2025-06-12] MEDS: Nicotine 2 MG GUM CH (08:23)
[2025-06-12] MEDS: Methadone Liquid 10 MG/ML 140 MG PO (08:23)
--- NOTE | 2025-06-12 10:20 | PGE_ITS ---
Date of Service Date of service: 06/12/25 Time of Service: 12:48 Assessment and Plan Assessment and plan (1) Endocarditis of tricuspid valve: Status: Acute Assessment and plan: Ongoing Ancef 2 g IV q8h until 06/22/25. Continue ambulating in hallway Dustin/Rabun score low; no DVT prophylaxis (2) Abscess in epidural space of L2-L5 lumbar spine: Status: Inactive Assessment and plan: As above. Pain: Continue as needed APAP, PRN ketorolac. Labs today pending: CBC, CMP, CRP Imaging at completion of antibiotics (per d/c summary) or sooner if symptoms worsen.- ordered for 06/17/2025 (3) Severe malnutrition: Status: Acute Assessment and plan: Most likely multifactorial (infection, pain, housing instability, substance use). Weight gain of 10 kg of 06/10/2025 prior to initial assessment of 5% weight loss over 2 wks, reduced intake >50%. Nutrition consult 06/10/25 reviewed. Continue MVI with minerals, supplement shakes TID with meals, ongoing litigation services manager follow-up. (4) Tobacco abuse: Status: Acute Assessment and plan: Ongoing NRT. (5) IV drug abuse: Status: Acute Assessment and plan: Continue daily methadone dosing. (6) Hep C w/o coma, chronic: Status: Acute Assessment and plan: No detectable viral load per [facility] discharge summary. At this time there is no acute intervention needed. Discussed with Dr Cody Subjective Subjective Patient reports: no new complaints, feels better, tolerating liquids well, tolerating a regular diet, voiding w/o difficulty, bowel movement and afebrile; denies diarrhea, nausea or vomiting Interval history since last seen: Ongoing long-term IV antibiotic therapy with gradual progress in managing their infection; no significant adverse reactions noted. C/o back stiffness and decreased ROM - would like PT Exam Narrative Exam Narrative: A&O X4 , no acute distress, moist mucous membranes with improving hollowness to cheeks, neurologically intact; lungs are clear to auscultation , heart is regular rate and rhythm no murmur. Abdomen is non-distended soft non-tender bowel sounds are present, no CVA tenderness, minimal tenderness on R spine ( iliac crest level) palpation- improved from prior- RASS 0, congruent mood and affect, Objective Last Vital Signs Temp 35.9 C L 06/12/25 06:44 Pulse 54 L 06/12/25 06:44 Resp 15 06/12/25 06:44 BP 123/80 06/12/25 06:44 Pulse Ox 100 06/12/25 06:44 Time Spent with Patient Time Spent with Patient: >50 minutes Time was spent: preparing to see the patient(eg.review tests), obtaining and/or reviewing separately otained hiistory, ordering medications,tests, procedures, referring, communicating with other health child care worker, indepentently interpreting results, counseling the patient, care coordination and other
[2025-06-12 16:30] LABS: Abs Immature Grans 0.03 10^3/uL (0.0-0.06); HCT 34.1 % (40.0-50.0); HGB 11.4 g/dL (13.5-17.5); Immature Grans % 0.4 %; MCH 31.7 pg (27.0-33.0); MCHC 33.4 % (32.0-36.0); MCV 95 fL (80-95); MPV 8.9 fL (8.0-11.0); Platelet Count 275 10^3/uL (130-400); RBC 3.60 10^6/uL (4.36-5.78); RDW 14.1 % (11.8-14.1); RDW-SD 49.2 fL; WBC 7.03 10^3/uL (4.4-10.8)
[2025-06-12 17:01] LABS: Anion Gap 7.6 mmol/L (3-11); BUN 32 mg/dL (7-18); CO2 30.4 mmol/L (21.0-32.0); Calcium 8.3 mg/dL (8.5-10.1); Chloride 99 mmol/L (98-107); Estimated GFR 57.43 (mL/min/1.73m2); Glucose 146 mg/dL (74-106); Potassium 4.0 mmol/L (3.5-5.1); Sodium 137 mmol/L (136-145)
[2025-06-12 18:53] LABS: Lab Add On Test DONE
[2025-06-12 19:12] LABS: C-Reactive Protein < 0.50 mg/dL (<or=0.5)
[2025-06-12 19:28] VITALS: BP 104/64; PULSE 56; RESP 15; TEMP 36; O2SAT 94
[2025-06-12] MEDS: Normal Saline Flush 10 ML SYR IVP (22:27)
[2025-06-12] MEDS: Acetaminophen 325 MG TAB PO (22:27)
[2025-06-12] MEDS: Docusate Sodium 100 MG CAP PO (22:28)
[2025-06-13] MEDS: ceFAZolin 2 GM/50 ML BAG IVPB ×3 (06:37→20:58)
[2025-06-13 07:24] VITALS: BP 125/79; PULSE 65; RESP 16; TEMP 35.7; O2SAT 100
--- NOTE | 2025-06-13 08:48 | PT.INIE ---
PT Notes Visit Reasons: Sepsis Inpatient Physical Therapy Evaluation Date: 06/13/2025 Referring Doctor: Mirtha Parra PT Orders: PT CONSULT: Evaluate for LBP,stiffness Precautions: [standard, sepsis] Patient Profile/Admitting Diagnosis: Sepsis,Abscess in epidural space of L2-L5 lumbar spine,Endocarditis of tricuspid valve: []Lisa is a 49-year-old gentleman who was originally seen in our hospital on 07 May for acute back pain and polyuria. While he was in the ED he was noted to have what appeared to be significant discitis/osteomyelitis. Considering the fact that we do not have neurosurgery request was made for transfer. Patient was transferred to a hospital in [place]. While he was in that hospital he was seen with the hospitalist service infectious disease cardiology and neurosurgery. 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 Patient also had a was seen by cardiothoracic surgery. CT scans done at that time were concerning for an abscess epidural abscess and a right psoas abscess as well. No surgical intervention was made for the osteomyelitis or discitis as the spinal canal is not narrowed. Patient was started on antibiotics and was sent to here for retirement needs. Patient is admitted for swing bed status. In reading his notes he is to continue with [facility] for 6 weeks which will end on 06/22/2025. Of note the patient does have a history of intravenous drug use. Patient also has nicotine use disorder. Prabha describes right lower lumbar back pain, at rest 4/10 and with going sit to stand, bending forward, bending to right side and to lesser extent back bending has increased pain to the same area. He states that the pain had decreased significantly when he was in [place] but has returned. He expresses concern that the abscess has returned however clinical findings do seem to suggest that mechanical findings likely due to prolonged hospitalization, weakness of right hip, core and glutes. He is scheduled for a f/u scan to evaluate abscess. PMHX: []All Active Problems (Updated 05/17/25 @ 18:51 by Conrad Art MD) Endocarditis of tricuspid valve (Acute) Urinary incontinence (Acute) Abscess in epidural space of L2-L5 lumbar spine (Acute) Alcoholic (Acute) Tetrahydrocannabinol (THC) use disorder, moderate, dependence (Acute) Does not have health insurance (Acute) Homeless single person (Acute) Sepsis (Acute) Cellulitis and abscess of upper extremity (Acute) Hep C w/o coma, chronic (Acute) MRSA cellulitis (Acute) Fentanyl use disorder, severe, dependence (Acute) Cocaine abuse (Acute) IV drug abuse (Acute) Tobacco abuse (Acute) Hypomagnesemia (Acute) Leucocytosis (Acute) DVT prophylaxis (Acute) Discharge planning issues (Acute) Medical History (Updated 05/17/25 @ 18:51 by Conrad Art MD) OD (overdose of drug) Respiratory failure Suicide attempt Social History/Home Situation: Has been hospitalized since 05/17/25 and continues until 06/22/25. Is working with case management for home insecurity as fear of being evicted. Current Functional Limitations: Has been walking hallways while in hospital and independent in room Equipment Owned/DME: he has in his room a RW, and SPC which he states he was using up until last week. Subjective: Right lowback pain with rolling in bed, sit to stand, dressing, bending Objective: General Observation: Pt is in bed, with IV port left UE, no obvious acute distress Mental Status: And O x4, cooperative Pain: At rest 10 right lowback, with movements as described -04/22 Vital Signs: monitored by nursing staff ROM: Right Upper Extremity: WFL Left Upper Extremity: WFL Right Lower Extremity: WFL , tight hamstrings SLR 60, tight gastroc Left Lower Extremity: WFL, tight hamstrings SLR 60, tight gastroc Strength: Right Upper Extremity: WFL Left Upper Extremity: WFL Right Lower Extremity:gross motor WNL, hip abduction 4-/5 Left Lower Extremity: Gross motor WNL hip abduction 4/5 Core: Difficulty performing PPT difficulty activating lower abs 2 -/5 Sensation: Denies any distal symptoms Bed Mobility/Transfers: Patient is guarded and has pain with rolling onto sides Gait: Patient has been ambulating without AD with normal stride length and good gait pattern however he has decreased arm swing and we do review with him and recommend exaggerated arm swing while he was walking to improve counter rotation. Balance: SLS right 5 seconds left 5 seconds Static Sitting: Normal Dynamic Sitting: Normal Static Standing: Normal Dynamic Standing: Good, does experience right low back pain with resisted shoulder exercises Special Tests: Mobility Limitations Standardized Measure [facility]-PAC 6 clicks Basic Mobility Inpatient Short Form: Raw Score:23 CMS Score: 11.20 Informed Consent/Education: Patient instructed in purpose of PT consult and plan of care. Assessment: Patient is a 49 year old male referred to physical therapy services with the diagnosis of low back pain in the presence of hospitalization for sepsis(lumbar spine and right psoas). Patient presents with clinical signs and symptoms consistent with mechanical right low back pain, as demonstrated by the following impairment level findings: Pain with lumbar ROM flexion sidebend right, tightness of hamstrings, general decreased mobility of trunk, decrease strength of right hip abduction and lower abdominals . Impairments are contributing to the following functional limitations: AMPAC score. Patient is assessed as a Low 03531 complexity based on the following: History: As above Examination: As above Presentation: Stable Decision Making: Low Therapeutic procedures (30280h6): Instruction in therapeutic exercises to develop strength and endurance, range of motion and flexibility. ? HEP instruction and review:? Provided skilled instruction in proper exercise performance: ?? Provided skilled manual cues to facilitate proper muscle recruitment and/or movement?pattern: Access Code: [email or web address] URL: [email or web address] Date: 06/13/2025 Prepared by: Judie Barreto Exercises - Supine Posterior Pelvic Tilt - 2 x daily - 7 x weekly - 1 sets - 10 reps - 5 hold - Hooklying Single Knee to Chest - 2 x daily - 7 x weekly - 1 sets - 5 reps - 5 hold - Supine Hamstring Stretch - 2 x daily - 7 x weekly - 1 sets - 5 reps - 5 hold - Supine Lumbar Rotation - 2 x daily - 7 x weekly - 1 sets - 5 reps - 5 hold - Clamshell - 2 x daily - 7 x weekly - 1 sets - 10 reps - 5 hold - Sit to Stand with Armchair - 4 x daily - 7 x weekly - 1 sets - 5 reps - Standing Gastroc Stretch - 3 x daily - 7 x weekly - 1 sets - 3 reps - 15 hold Consider adding hip abduction, bridging but only if able to maintain PPT Patient Education - Rolling From Your Back to Your Side, draw in as you roll Goals: Goals X1 week 1. Rolling in bed without increased pain 2. Sit-Stand x with good form and no increased pain10 , able to get shoes and socks on without increased pain of right low back 3. Independent with home exercise program Plan of Care/Treatment Plan:Will plan to recheck for quality , form of exercises and progress as able to improve mobility and stabilization, once indep can expect to d/c from skilled services. 1x/day, 2 days/week x 1 week. Plan of care has been reviewed with the [employer] providing the service under Physical Therapy direction. Initiate Physical Therapy intervention for strengthening, bed mobility, transfers, core exercises and flexibility exercises. DISCHARGE RECOMMENDATIONS: X Home with no services TREATMENT CODE/TIME: 45021 [id number] 9:15-9:45
[2025-06-13] MEDS: Lactobacillus Acidophilus CAP 1 CAP PO ×3 (09:03→20:58)
[2025-06-13] MEDS: Nicotine 2 MG GUM CH (09:03)
[2025-06-13] MEDS: Methadone Liquid 10 MG/ML 140 MG PO (09:03)
[2025-06-13] MEDS: Multivitamin w/Minerals TAB 1 TAB PO ×2 (09:03→20:58)
[2025-06-13] MEDS: Folic Acid 1 MG TAB PO (09:03)
[2025-06-13] MEDS: Nicotine 21 MG/24 HR PATCH TD (09:03)
[2025-06-13] MEDS: Normal Saline Flush 10 ML SYR IVP (09:04)
--- NOTE | 2025-06-13 09:16 | PDOC.CMACT ---
Date of service: 06/13/25 Time of Service: 09:16 Care Management Activity Note Activity Note Text Activity Note Text: Prabha has been ambulating frequently in the halls and reports overall improvement, though he continues to experience lower back pain and stiffness. He initially presented to the ED late April with back pain and polyuria, which appeared to be related to discitis/osteomylitis. He was then transferred from [facility] to [place] where workup indicated tricuspid valve endocarditis with MSSA bacteremia, discitis and osteomyelitis. Due to ongoing pain, Prabha is hopeful for repeat imaging and further medical work. From a social standpoint, Prabha is no longer facing immediate eviction from the camper he and his girlfriend have been renting. Although, they initially received a notice to vacate by 06/17/25, he has since spoken with a legal small business representative who advised the process would take longer. Regardless, Bipin remains concered about the colder weather and is working toward more stable housing with the support of his CHW from [facility]. During his prolonged hospitalization, Prabha has been walking the halls and watching TV to keep himself occupied. continues to offer him activities from the activity cart, but he declines. CM will continue to follow and support Prabha's life enrichment during this swing bed stay which is expected to end on 06/22/25, following completion of his IV ABX course. CM will follow.
[2025-06-13 19:45] VITALS: BP 100/61; PULSE 56; RESP 15; TEMP 36; O2SAT 99
[2025-06-13] MEDS: cloNIDine 0.1 MG TAB PO (20:58)
[2025-06-14] MEDS: ceFAZolin 2 GM/50 ML BAG IVPB ×3 (05:52→21:12)
[2025-06-14] MEDS: Nicotine 21 MG/24 HR PATCH TD (07:31)
[2025-06-14] MEDS: Folic Acid 1 MG TAB PO (07:31)
[2025-06-14] MEDS: Multivitamin w/Minerals TAB 1 TAB PO ×2 (07:31→21:12)
[2025-06-14] MEDS: Lactobacillus Acidophilus CAP 1 CAP PO ×3 (07:31→21:12)
[2025-06-14] MEDS: Nicotine 2 MG GUM CH (07:35)
[2025-06-14 08:25] VITALS: BP 121/84; PULSE 65; RESP 16; TEMP 36; O2SAT 98
[2025-06-14] MEDS: Methadone Liquid 10 MG/ML 140 MG PO (08:26)
--- NOTE | 2025-06-14 14:02 | PTTR_ITS ---
PT Notes Visit Reasons: Sepsis Date: 06/14/2025 PRECAUTIONS: Fall. Standard Activity as tolerated. SUBJECTIVE: Pt in bed when approached for therapy this afternoon. agreed to participate with PT session. OBJECTIVE: ? ?IV line/drip on left antecubital ? PAIN: 2/10 when not moving, goes up to 3-4 when doing activity VITALS: monitored by nursing Therapeutic Activities 06990: Direct one-on-one instruction in dynamic activit ies to improve functional performance. ?? BED MOBILITY/TRANSFERS? Rolling L/R: SBA Supine-sit: ? supervision? Sit-supine: ? supervision? Sit-stand: ? supervision ? Stand-sit: ??supervision ? Bed-Chair:? supervision ? Chair-bed: supervision Provided skilled cues and instruction on performance and technique throughout. ? ? Therapeutic Exercises 85171: Direct one-on-one instruction in therapeutic exercises to develop strength, endurance, range of motion and flexibility. HEP instruction and review: Provided skilled instruction in proper exercise performance: Provided skilled manual cues to facilitate proper muscle recruitment and/or movement pattern: Exercises Access Code: [email or web address] URL: [email or web address] Date: 06/14/2025 Prepared by: Judie Barreto Exercises - Supine Posterior Pelvic Tilt - 2 x daily - 7 x weekly - 1 sets - 10 reps - 5 hold - Hooklying Single Knee to Chest - 2 x daily - 7 x weekly - 1 sets - 5 reps - 5 hold - Supine Hamstring Stretch - 2 x daily - 7 x weekly - 1 sets - 5 reps - 5 hold - Supine Lumbar Rotation - 2 x daily - 7 x weekly - 1 sets - 5 reps - 5 hold - Clamshell - 2 x daily - 7 x weekly - 1 sets - 10 reps - 5 hold - Sit to Stand with Armchair - 4 x daily - 7 x weekly - 1 sets - 5 reps - Standing Gastroc Stretch - 3 x daily - 7 x weekly - 1 sets - 3 reps - 15 hold Patient Education - Rolling From Your Back to Your Side? ASSESSMENT:?Pt aving IV drip as of the moment and did not perform walking activity, pt normally does his walking independently, pt showing good carry over of HEP. PLAN: Continue with balance training, global strengthening and general conditioning for improved safety, mobility and activity tolerance until pt is ready for DC. TREATMENT CODE/TIME: [id number] [id number] 20mins (1:40-2:00pm)
[2025-06-14] MEDS: cloNIDine 0.1 MG TAB PO (21:12)
[2025-06-15] MEDS: ceFAZolin 2 GM/50 ML BAG IVPB ×3 (06:28→21:43)
[2025-06-15] MEDS: Nicotine 21 MG/24 HR PATCH TD (08:02)
[2025-06-15] MEDS: Nicotine 2 MG GUM CH (08:02)
[2025-06-15] MEDS: Folic Acid 1 MG TAB PO (08:03)
[2025-06-15] MEDS: Lactobacillus Acidophilus CAP 1 CAP PO ×3 (08:03→21:43)
[2025-06-15] MEDS: Multivitamin w/Minerals TAB 1 TAB PO ×2 (08:03→21:43)
[2025-06-15] MEDS: Methadone Liquid 10 MG/ML 140 MG PO (08:36)
[2025-06-15 10:52] VITALS: BP 126/83; PULSE 69; RESP 16; TEMP 36.7; O2SAT 95
[2025-06-15] MEDS: Acetaminophen 325 MG TAB PO (16:55)
[2025-06-15] MEDS: Normal Saline Flush 10 ML SYR IVP (21:43)
[2025-06-16] MEDS: ceFAZolin 2 GM/50 ML BAG IVPB ×3 (05:31→21:03)
[2025-06-16] MEDS: Normal Saline Flush 10 ML SYR IVP ×2 (05:32→21:03)
[2025-06-16] MEDS: Nicotine 21 MG/24 HR PATCH TD (08:52)
[2025-06-16] MEDS: Folic Acid 1 MG TAB PO (08:53)
[2025-06-16] MEDS: Lactobacillus Acidophilus CAP 1 CAP PO ×3 (08:53→21:03)
[2025-06-16] MEDS: Multivitamin w/Minerals TAB 1 TAB PO ×2 (08:53→21:03)
[2025-06-16] MEDS: Methadone Liquid 10 MG/ML 140 MG PO (08:53)
[2025-06-16] MEDS: Nicotine 2 MG GUM CH (08:53)
[2025-06-16] MEDS: Acetaminophen 325 MG TAB PO (13:47)
[2025-06-16 14:03] VITALS: BP 117/79; PULSE 65; RESP 16; TEMP 37; O2SAT 100
[2025-06-16] MEDS: cloNIDine 0.1 MG TAB PO (21:03)
[2025-06-17] MEDS: ceFAZolin 2 GM/50 ML BAG IVPB ×3 (06:26→21:03)
[2025-06-17 07:07] VITALS: BP 118/77; PULSE 56; RESP 16; TEMP 36; O2SAT 100
[2025-06-17] MEDS: Lactobacillus Acidophilus CAP 1 CAP PO ×3 (08:26→21:03)
[2025-06-17] MEDS: Nicotine 2 MG GUM CH (08:26)
[2025-06-17] MEDS: Nicotine 21 MG/24 HR PATCH TD (08:26)
[2025-06-17] MEDS: Folic Acid 1 MG TAB PO (08:27)
[2025-06-17] MEDS: Normal Saline Flush 10 ML SYR IVP ×4 (08:27→21:03)
[2025-06-17] MEDS: Methadone Liquid 10 MG/ML 140 MG PO (08:29)
--- NOTE | 2025-06-17 09:00 | DI.CT_ITS ---
Exam(s) CT LUMBAR SPINE W EXAM: CT LUMBAR SPINE W CLINICAL HISTORY: abscess. TECHNIQUE: Imaging Protocol: Axial computed tomography images with coronal and sagittal reformatted images were created and reviewed COMPARISON: CT scan of 05/07/2025. FINDINGS: Bones: There are no fractures, listhesis, nor pars defects. However, there appear to be increasing findings at L4-5 level. INDIVIDUAL LEVELS: T12-L1:No disc herniation nor canal stenosis. Facet joints unremarkable. No foraminal stenosis. L1-2: No disc herniation nor canal stenosis. Facet joints unremarkable. No foraminal stenosis. L2-3: No disc herniation nor canal stenosis. Facet joints unremarkable. No Foraminal stenosis L3-4: No disc herniation nor canal stenosis. Facet joints unremarkable. L4-5: There is again noted decreased disc space height. However on the present study there appears to be some further erosion of the inferior endplate of L4 and superior endplate of L5. Suspect discitis. There is enhancing anterior epidural tissue posterior to this disc space. This extends a continuous fashion caudally to the L5-1 level for craniocaudal measurement 4.5 cm. This is somewhat impresses the anterior thecal sac. There does not appear to be an abscess in the psoas musculature on the present study, as was evident on the prior CT scan of 05/07/2025 L5-S1: Moderate disc space narrowing. No endplate erosions at this level. No listhesis. Posterior epidural enhancement extends down to this level. The visualized sacroiliac joints and sacrum appear unremarkable. PARASPINAL SOFT TISSUES: No paraspinal abscess evident in the psoas musculature and other paraspinal musculature on the present study. IMPRESSION: 1. Compared to the abdominal CT scan of 05/07/2025 there is again noted evidence of probable discitis at L4-5 level and there is enhancing anterior epidural tissue extending from this level caudally to the L5-S1 level, still suspicious for epidural infectious process. 2. On the present study there is no evidence psoas abscess, as was evident on the right side on the CT study of 05/07/2025. 3. Recommend follow-up contrast infused MRI. Preliminary virtual Radiology report was reviewed. Final report called by myself to the hospitalist 06/17/2025 at 8:02 p.m. RADIATION DOSE DELIVERED: 359.36mGy.cm Total DLP DATA REPOSITORY: All CT scans at this facility are submitted to the National Radiology Data Registry (NRDR) Dose Index Registry (DIR) with the [employer] (ACR). RADIATION OPTIMIZATION: All CT scans at this facility use at least one of these dose optimization techniques: automated exposure control; mA and/or kV adjustment per patient size (includes targeted exams where dose is matched to clinical indication); or iterative reconstruction.
[2025-06-17] MEDS: Normal Saline - Diluent 50 ML VIAL IJ (09:06)
[2025-06-17] MEDS: Omnipaque 350 MG/ML 100 ML BTL IJ (09:06)
[2025-06-17] MEDS: Acetaminophen 325 MG TAB PO (09:19)
--- NOTE | 2025-06-17 11:10 | DI.VRAD_ITS ---
PROCEDURE INFORMATION: Exam: CT Lumbar Spine With Contrast Exam date and time: 06/17/2025 8:53 AM Age: 49 years old Clinical indication: Other: Abscess TECHNIQUE: Imaging protocol: Computed tomography of the lumbar spine with contrast. Contrast material: OMNIPAQUE 350; Contrast volume: 100 ml; Contrast route: INTRAVENOUS (IV); COMPARISON: CT LUMBAR SPINE W 05/07/2025 11:42 PM FINDINGS: Bones/joints: No acute fracture. Normal alignment. No significant disc bulge or herniation. No severe spinal canal stenosis. No significant neural foraminal narrowing. Soft tissues: Fatty infiltration of the liver IMPRESSION: No discrete abscess identified. Specifically no definite psoas fluid collection or mass detected Dictated and Authenticated by: Reji Andrew MD. Orderin Aida Shannon MD
[2025-06-17] MEDS: Lidocaine 5% Patch 2 PATCH TP (17:17)
[2025-06-17] MEDS: Multivitamin w/Minerals TAB 1 TAB PO (21:03)
[2025-06-17] MEDS: cloNIDine 0.1 MG TAB PO (21:03)
[2025-06-18] MEDS: ceFAZolin 2 GM/50 ML BAG IVPB ×3 (06:15→21:05)
[2025-06-18 07:24] VITALS: BP 128/77; PULSE 55; RESP 17; TEMP 37; O2SAT 97
[2025-06-18] MEDS: Folic Acid 1 MG TAB PO (08:06)
[2025-06-18] MEDS: Nicotine 2 MG GUM CH (08:06)
[2025-06-18] MEDS: Nicotine 21 MG/24 HR PATCH TD (08:06)
[2025-06-18] MEDS: Lactobacillus Acidophilus CAP 1 CAP PO ×3 (08:06→21:06)
[2025-06-18] MEDS: Multivitamin w/Minerals TAB 1 TAB PO ×2 (08:06→21:06)
[2025-06-18] MEDS: Methadone Liquid 10 MG/ML 140 MG PO (08:07)
--- NOTE | 2025-06-18 13:28 | INDS_ITS ---
PT Notes Visit Reasons: Sepsis Inpatient Physical Therapy Discharge Summary Dates: 06/18/2025 Dates of Service: 06/13/2025-06/18/2025 SUBJECTIVE:Pt reports the exercises and stretches are helping . He states his glutes are sore from doing sit to stand without his hands. he reports he has a blanket and pillow which he places on the floor to perform his exercises. OBJECTIVE: Pt presented ambulatory in the hallway. He repors some buttock/glute discomfort Pain:2-11/20 low back ROM: [] L UE: WNL R UE: WNL L LE: WNL hamstring to 70 degrees without pain R LE: WNL hamstring to 70 degrees without pain STRENGTH: L UE: 5/5 R UE: 5/5 L LE: 5/5 R LE: 5/5 except hip abduction 5 BED MOBILITY/TRANSFERS: Supine-sit Independent Sit-supine Independent Sit-stand Independent Stand-sit Independent Bed-Chair Independent Chair-bed Independent GAIT: Independent without AD ad anna on unit. no LOB reciprocal pattern BALANCE: Static sitting Normal Dynamic sitting normal Static standing normal Dynamic standing Normal SPECIAL TESTS: Am-PAC 24 0% deficit 4 STAGE BALANCE TEST: Feet together +60 seconds 1/2 Stance 45 seconds Tand3m stance 30 seconds Single leg stance left 30 seconds, right 19 seconds (limited by pain) ASSESSMENT: Prabha is a 49 yo male presented with low back paind/t abscess spine. Pt receiving 6 weeks of IV Antibiotics with 4 days remaining treatments. Pt. demonstrates carryover with his HEP. He is able to transition from stand to flat on floor for his HEP. He continues to have difficulty maintaining PPT to progress with hip abduction . He notes the stiffness is much less but his muscles are sore from doing the strengthening. He has demonstrated improvement in B hamstring length with daily stretching. He remains independent with all functional mobility with out a device and is able to perform ADLs. No further inpatient PT is required at this time. Therapeutic procedures (53175): Instruction in therapeutic exercises to develop strength and endurance, range of motion and flexibility. ? HEP instruction and review:? Provided skilled instruction in proper exercise performance: ?? Provided skilled manual cues to facilitate proper muscle recruitment and/or movement?pattern: Access Code: [email or web address] URL: [email or web address] Date: 06/13/2025 Prepared by: Judie Barreto Exercises - Supine Posterior Pelvic Tilt - 2 x daily - 7 x weekly - 1 sets - 10 reps - 5 hold - Hooklying Single Knee to Chest - 2 x daily - 7 x weekly - 1 sets - 5 reps - 5 hold - Supine Hamstring Stretch - 2 x daily - 7 x weekly - 1 sets - 5 reps - 5 hold - Supine Lumbar Rotation - 2 x daily - 7 x weekly - 1 sets - 5 reps - 5 hold - Clamshell - 2 x daily - 7 x weekly - 1 sets - 10 reps - 5 hold - Sit to Stand with Armchair - 4 x daily - 7 x weekly - 1 sets - 5 reps - Standing Gastroc Stretch - 3 x daily - 7 x weekly - 1 sets - 3 reps - 15 hold Consider adding hip abduction, bridging but only if able to maintain PPT Patient Education - Rolling From Your Back to Your Side, draw in as you roll GOALS ( Met / Not Met):All Goal Below Met Goals: 1. Rolling in bed without increased pain 2. Sit-Stand x with good form and no increased pain10 , able to get shoes and socks on without increased pain of right low back 3. Independent with home exercise program DISCHARGE PLAN/RECOMMENDATIONS: [] [] Home with no services [] [] Home with services [specify] [X] Home with outpatient PT when medically appropriate to progress with PT [] SNF for continued rehabilitation [] [] Home [facility] [employer] [] [] SNF versus LTC based on ability to participate and progress [] Treatment code/Time: 92791: [id number] Whitney Roth PT [facility]
[2025-06-18 19:06] VITALS: BP 103/66; PULSE 52; RESP 12; TEMP 36; O2SAT 99
[2025-06-18] MEDS: Lidocaine 5% Patch 2 PATCH TP (21:05)
[2025-06-18] MEDS: Normal Saline Flush 10 ML SYR IVP (21:06)
[2025-06-18] MEDS: cloNIDine 0.1 MG TAB PO (21:06)
--- NOTE | 2025-06-19 | DI.MRI_ITS ---
Exam(s) MR LUMBAR SPINE WO/W EXAM: MR LUMBAR SPINE WO/W CLINICAL HISTORY: discitis. TECHNIQUE: Multiplanar multisequence MRI of the Lumbar Spine was performed. CONTRAST MATERIAL: IV Contrast: 13 mL of Dotarem contrast administered. COMPARISON: CT CT THORACIC SPINE W from 05/07/[address] ABDOMEN PELVIS W from 05/07/[address] LUMBAR SPINE W from 05/07/[address] CERVICAL SPINE W from 05/08/[address] LUMBAR SPINE W from 06/17/2025 FINDINGS: Bones: The last intervertebral disc space is designated the L5/S1 level for the numbering purpose of this examination. The vertebral body heights are well maintained. Alignment is satisfactory. At the inferior endplate of L4 and the superior endplate of L5, there is hyperintense signal on the T2 weighted image and corresponding hypointense signal on the T1 weighted image. There is similar signal seen in the pedicles of L5. These areas show enhancement following contrast administration. The inferior L4 cortex and the superior L5 cortex appear discontinuous. Cord: The conus tip ends at the T12 level. It is of normal size and signal intensity. T12-L1: No disc herniations or bulges are present. No central spinal canal or neural foraminal stenosis. L1-2: No disc herniations or bulges are present. No central spinal canal or neural foraminal stenosis. L2-3: No disc herniations or bulges are present. No central spinal canal or neural foraminal stenosis. L3-4: There is a mild diffuse disc bulge at this level with extension into the left neural foramen. There is resultant [id number] left neural foraminal stenosis. There are degenerative changes of the facets. No significant central spinal canal or right neural foraminal stenosis is present. L4-5: There is hyperintense signal seen on the T2 weighted images in the L4-5 disc. There is no significant disc protrusion. No central spinal canal or neural foraminal stenosis. L5-S1: There is a mild diffuse disc bulge. There are degenerative changes of the facets. There is no significant central spinal canal or neural foraminal stenosis that results. Soft tissues: The visualized SI joints and sacrum are well maintained. The paraspinal soft tissues are unremarkable. There is mild enhancement in the soft tissues to the right of the L4-5 level and in the right iliopsoas muscle but no focal fluid collection is seen to suggest an abscess. There is enhancement in the epidural soft tissues at the L4-5 level particularly on the right. There is a small 4 mm peripherally enhancing lesion in the right epidural space (series 73031, image 15, series 5001, image 9). This may represent a small abscess. There is also enhancement seen in the right neural foramen. There is no abscess seen in the psoas muscles at this time. IMPRESSION: 1. Findings again consistent with L4-5 discitis. 2. 4 mm peripherally enhancing lesion in the right epidural space suspicious for small abscess. 3. Resolution of the abscesses involving the psoas muscles. 4. Multilevel degenerative changes resulting in [id number] left neural foraminal stenosis at L3-L4. DATA REPOSITORY:
[2025-06-19] MEDS: ceFAZolin 2 GM/50 ML BAG IVPB ×3 (06:23→21:53)
[2025-06-19 07:02] VITALS: BP 100/71; PULSE 49; RESP 16; TEMP 35.7; O2SAT 99
--- NOTE | 2025-06-19 08:39 | PDOC.CMACT ---
Date of service: 06/19/25 Time of Service: 08:39 Care Management Activity Note Activity Note Text Activity Note Text: Prabha has been ambulating frequently in the halls and reports overall improvement. His IV ABX course will be finished on 06/22/25, after which he is planning to discharge to the community with outpatient follow up. Yesterday, Bipin had an MRI and echo which were both reassuring, per provider. From a social standpoint, Prabha is no longer facing immediate eviction from the [facility] that he and his girlfriend have been renting. Although, they initially received a notice to vacate by 06/17/25, he has since spoken with a legal claims customer service representative who advised the process would take longer. Regardless, Bipin remains concerned about the colder weather and is working toward more stable housing with the support of his CHW from [employer]. Prabha has been walking the halls and watching TV to keep himself occupied during his extended hospital stay. EDGAR continues to offer him activities from the activity cart, which he continues to decline. EDGAR will continue to follow.
[2025-06-19] MEDS: Nicotine 2 MG GUM CH (08:44)
[2025-06-19] MEDS: Multivitamin w/Minerals TAB 1 TAB PO ×2 (08:44→21:52)
[2025-06-19] MEDS: Methadone Liquid 10 MG/ML 140 MG PO (08:44)
[2025-06-19] MEDS: Lactobacillus Acidophilus CAP 1 CAP PO ×3 (08:44→21:52)
[2025-06-19] MEDS: Folic Acid 1 MG TAB PO (08:44)
--- NOTE | 2025-06-19 09:11 | DI.US_ITS ---
APPROVED REPORT EXAM: Comprehensive 2D, Doppler, and color-flow Echocardiogram Patient Location: In-Patient Room/Bed: [facility] Chief Of Production: Sherri Briceno RDCS (AE) Indications: Completion of 6 w abx for bacterema/veg on valve Other Information Study Quality: Adequate. Technically limited study due to history of smoking. Conclusion Normal left ventricular wall thickness and chamber size. Ejection fraction is 58%. Wall motion is normal Normal right ventricular size and function Both atria are normal in size There are no structural valvular abnormalities. Specifically no vegetation is noted on the tricuspid or other valves There is mild eccentric tricuspid regurgitation Wall motion Left Ventricle The left ventricle is normal size. The left ventricular systolic function is normal. The left ventricular ejection fraction is within the normal range. There is normal left ventricular wall thickness. There is normal LV segmental wall motion. There is no ventricular septal defect visualized. LVEF is 58%. Right Ventricle The right ventricle is normal size. The right ventricular systolic function is normal. Atria The left atrium size is normal. The right atrium size is normal. The interatrial septum is intact with no evidence for an atrial septal defect. Aortic Valve The aortic valve is normal in structure. Aortic valve is trileaflet. There is no aortic valvular stenosis. No aortic regurgitation is present. There is no aortic valvular vegetation. Mitral Valve The mitral valve is normal in structure. No evidence of mitral valve stenosis. Trace mitral regurgitation. There is no evidence of mitral valve vegetations. Tricuspid Valve The tricuspid valve is normal in structure. Mild tricuspid regurgitation. The RVSP is 27.0 mmHg. There is no tricuspid valve vegetations. Pulmonic Valve Pulmonic valve is not well visualized. There is no pulmonic valvular stenosis. There is no pulmonic valvular regurgitation. Great Vessels The aortic root is normal in size. Ascending aorta is not well visualized. Aortic arch is not well visualized. IVC is normal in size and collapses >50% with inspiration. Pericardium There is no pericardial effusion. 2D Dimensions IVSD d PLAX 0.75 cm M: 0.6-1.2 Ao Root d 3.14 cm M: 3.1 - 3.7 LVPW d PLAX 0.75 cm M: 0.6 - 1.2 LVID d PLAX 4.81 cm M: 4.2 - 5.8 LVDs 3.33 cm M: 2.5 - 4.0 LV EF Teichholz 58.4 % FS 30.87 % LV EDV (Teich) 108.3 mL LV ESV (Teich) 45.1 mL M-Mode TAPSE 2.51 cm (M/F) >1.7 Auto EF LV EDV A4C 149.9 mL LV EDV A2C 143.4 mL LV EDV BP 146.0 mL LV ESV A4C 63.6 mL LV ESV A2C 61.2 mL LV ESV BP 63.0 mL LVEF(%) A4C 57.5 % LVEF(%) A2C 57.3 % LVEF(%) BP 56.9 % LV SV A4C 86.3 ml LV SV A2C 82.2 ml LV SV BP 83.0 ml LV CO A4C 4.8 L/min LV CO A2C 4.4 L/min LV CO BP 4.6 L/min HR A4C 55.82 BPM HR A2C 53.41 BPM LV EDV Index (BP) LA Volume LA Length A4C 4.3 cm LA Length A2C 4.8 cm LA Area A4C s 14.24 cm2 LA Area A2C s 16.92 cm2 LA Vol A4C A-L 39.70 mL LA Vol A2C A-L 50.56 mL LA Vol Biplane A-L 47.2 mL LA Vol/BSA A4C A-L LA Vol/BSA A2C A-L LA Vol/BSA BP A-L 27.9 mL/m2 LA Vol A4C MOD 36.3 mL LA Vol A2C MOD 45.9 mL LA Vol BP MOD 42.8 mL LV Diastology MV E' medial 0.108 (>0.07 m/s) MV E Vmax 0.83 (0.4-1.3 m/s) MV E/E' MED 7.66 (<14) MV A Vmax 0.85 (0.4-1.3 m/s) MV E' lateral 0.134 (>0.1 m/s) E/A Ratio 1.0 MV E/E' LAT 6.18 (<14) MV E' Average 0.121 m/s MV E/E'(average) 6.84 Aortic Valve AoV Vmax 1.21 m/s LVOT Vmax 1.10 m/s AoV Peak Grad 5.8 mmHg LVOT Peak Grad 4.8 mmHg AoV Area (Vmax) 2.78 cm2 LVOT VTI 0.245 m AoV VTI 0.319 m LVOT Mean Grad 2.5 mmHg AoV Mean Juan Carlos. 0.89 m/s LVOT SV 75.21 mL AoV Mean Grad 3.6 mmHg LVOT Diam s 1.95 cm AoV Area (VTI) 2.36 cm2 AV Regurg Peak Gr. 5.83 mmHg Velocity Ratio 0.91 Mitral Valve MV DT 137 (160-240 msec) MV Vmax TIPS 0.95 m/s MV Mean Grad 1.2 (<2mmHg) MV VTI 0.323 m Pulmonary Valve PV Vmax 0.97 (0.5-1.5 m/s) RVOT Vmax 0.57 m/s PV Peak Grad 3.7 mmHg RVOT Peak Gr. 1.3 mmHg PV Mean Juan Carlos 0.74 m/s RVOT VTI 0.143 m PV Mean Grad 2.4 mmHg RVOT Mean Gr. 0.7 mmHg Tricuspid Valve RA Pressure 3.00 mmHg TR Vmax 2.45 m/s TV S' 0.14 m/s TR Peak Grad 24.0 mmHg RVSP (TR) 27.0 mmHg
[2025-06-19] MEDS: Normal Saline Flush 10 ML SYR IVP ×2 (10:19→21:53)
[2025-06-19] MEDS: Gadoterate meglumine 20 ML SYRINGE IVP (10:19)
[2025-06-19] MEDS: Nicotine 21 MG/24 HR PATCH TD (11:00)
[2025-06-19] MEDS: Acetaminophen 325 MG TAB PO ×2 (14:25→21:52)
[2025-06-19 20:56] VITALS: BP 106/76; PULSE 53; RESP 12; TEMP 36.1; O2SAT 96
[2025-06-19] MEDS: cloNIDine 0.1 MG TAB PO (21:53)
[2025-06-19 21:54] VITALS: PULSE 61
[2025-06-20] MEDS: ceFAZolin 2 GM/50 ML BAG IVPB ×3 (05:22→21:23)
[2025-06-20] MEDS: Normal Saline Flush 10 ML SYR IVP (05:23)
[2025-06-20 07:14] VITALS: BP 90/65; PULSE 48; RESP 16; TEMP 35.7; O2SAT 99
[2025-06-20] MEDS: Nicotine 2 MG GUM CH (09:05)
[2025-06-20] MEDS: Lactobacillus Acidophilus CAP 1 CAP PO ×3 (09:05→21:23)
[2025-06-20] MEDS: Methadone Liquid 10 MG/ML 140 MG PO (09:05)
[2025-06-20] MEDS: Folic Acid 1 MG TAB PO (09:05)
[2025-06-20] MEDS: Nicotine 21 MG/24 HR PATCH TD (09:06)
[2025-06-20] MEDS: Multivitamin w/Minerals TAB 1 TAB PO ×2 (09:06→21:23)
[2025-06-20 19:10] VITALS: BP 109/67; PULSE 61; RESP 15; TEMP 36.8; O2SAT 99
[2025-06-20] MEDS: cloNIDine 0.1 MG TAB PO (21:23)
[2025-06-20] MEDS: Acetaminophen 325 MG TAB PO (21:23)
--- NOTE | 2025-06-20 23:59 | PGE_ITS ---
Date of Service Date of service: 06/20/25 Time of Service: 12:00 Assessment and Plan Assessment and plan (1) Endocarditis of tricuspid valve: Status: Acute Assessment and plan: Ongoing Ancef 2 g IV q8h until 06/22/25. Continue ambulating in hallway Dustin/Barnwell score low; no DVT prophylaxis Echo 06/19 - no vegetation on valves LS Spine MRI 06/19 - L4-L5 discitis with small right epidural abscess; psoas abscesses resolved; [id number] L3-L4 left foraminal stenosis. Discussed with [facility] ID - patient is good to dc abx as planned on 06/22. Discussed with patient. Patient is excited about being discharged. (2) Abscess in epidural space of L2-L5 lumbar spine: Status: Inactive Assessment and plan: As above. Pain: Continue as needed APAP, PRN ketorolac. 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 (4) Tobacco abuse: Status: Acute Assessment and plan: Ongoing NRT. (5) IV drug abuse: Status: Acute Assessment and plan: Continue daily methadone dosing. (6) Hep C w/o coma, chronic: Status: Acute Assessment and plan: No detectable viral load per [place] discharge summary. At this time there is no acute intervention needed. Discussed with Dr Pérez Subjective Subjective Patient reports: no new complaints, pain is less, tolerating liquids well, tolerating a regular diet, voiding w/o difficulty, no flatus, bowel movement and afebrile; denies diarrhea, nausea, vomiting or shortness of breath Interval history since last seen: Awake, alert, conversant, pleasant. Is looking forward to going home on Wednesday. States he has a plan and he is not concerned about relapsing and will do everything he can to stay sober. Care managers have provided assistance with his discharge plan. Exam Narrative Exam Narrative: Patient afebrile, hemodynamically stable, in no acute distress. General: Thin male, older appearing than stated age, alert and oriented ?4, no acute distress. HEENT: Moist mucous membranes, hollow cheeks, no lymphadenopathy, no JVD. Neuro: Intact, moves all extremities, normal strength and sensation. Cardiac: Regular rate and rhythm, no murmurs. Respiratory: Clear to auscultation bilaterally, no wheezes, rales, or rhonchi. Abdomen: Soft, non-distended, non-tender, bowel sounds present. Psych: Mood and affect congruent, anxious at times but easily reassured. Objective Last Vital Signs Temp 36.8 C 06/20/25 19:10 Pulse 61 06/20/25 19:10 Resp 15 06/20/25 19:10 BP 109/67 06/20/25 19:10 Pulse Ox 99 06/20/25 19:10 Time Spent with Patient Time Spent with Patient: <25 minutes Time was spent: preparing to see the patient(eg.review tests), referring, communicating with other health home health care respiratory therapist, counseling the patient and care coordination
[2025-06-21] MEDS: ceFAZolin 2 GM/50 ML BAG IVPB ×3 (05:40→21:00)
[2025-06-21 06:16] LABS: Abs Immature Grans 0.01 10^3/uL (0.0-0.06); HCT 35.0 % (40.0-50.0); HGB 11.5 g/dL (13.5-17.5); Immature Grans % 0.2 %; MCH 30.5 pg (27.0-33.0); MCHC 32.9 % (32.0-36.0); MCV 93 fL (80-95); MPV 9.0 fL (8.0-11.0); Platelet Count 269 10^3/uL (130-400); RBC 3.77 10^6/uL (4.36-5.78); RDW 14.2 % (11.8-14.1); RDW-SD 48.2 fL; WBC 5.18 10^3/uL (4.4-10.8)
[2025-06-21 06:40] LABS: ALT 13 U/L (16-63); AST 19 U/L (15-37); Albumin 3.4 g/dL (3.4-5.0); Alkaline Phosphatase 94 U/L (46-116); Anion Gap 9.2 mmol/L (3-11); BUN 34 mg/dL (7-18); Bilirubin, Total 0.2 mg/dL (0.2-1.0); C-Reactive Protein < 0.50 mg/dL (<or=0.5); CO2 30.8 mmol/L (21.0-32.0); Calcium 9.1 mg/dL (8.5-10.1); Chloride 101 mmol/L (98-107); Estimated GFR 83.32 (mL/min/1.73m2); Glucose 119 mg/dL (74-106); Magnesium 2.4 mg/dL (1.8-2.4); Potassium 4.2 mmol/L (3.5-5.1); Sodium 141 mmol/L (136-145); Total Protein 7.4 g/dL (6.4-8.2)
[2025-06-21 07:14] VITALS: BP 103/66; PULSE 51; RESP 14; TEMP 36.9; O2SAT 99
[2025-06-21] MEDS: Lactobacillus Acidophilus CAP 1 CAP PO ×3 (08:25→21:00)
[2025-06-21] MEDS: Folic Acid 1 MG TAB PO (08:25)
[2025-06-21] MEDS: Nicotine 21 MG/24 HR PATCH TD (08:25)
[2025-06-21] MEDS: Multivitamin w/Minerals TAB 1 TAB PO ×2 (08:25→21:00)
[2025-06-21] MEDS: Methadone Liquid 10 MG/ML 140 MG PO (08:26)
[2025-06-21] MEDS: Nicotine 2 MG GUM CH (08:29)
[2025-06-21] MEDS: Lidocaine 5% Patch 2 PATCH TP (17:53)
[2025-06-21] MEDS: Normal Saline Flush 10 ML SYR IVP (21:00)
[2025-06-21] MEDS: cloNIDine 0.1 MG TAB PO (21:00)
[2025-06-22] MEDS: ceFAZolin 2 GM/50 ML BAG IVPB ×3 (06:24→21:36)
[2025-06-22 07:35] VITALS: BP 136/92; PULSE 55; RESP 17; TEMP 36.6; O2SAT 100
--- NOTE | 2025-06-22 08:11 | PDOC.CMDIS ---
Date of service: 06/22/25 Time of Service: 08:11 LACE Index Scoring Tool Questions: Length of Stay (in days): 14 or more (37 days SWB1 for IV ABX) Was the patient admitted via the E.D.?: No E.D. Visits: 1 Answers: Total Score: 8 Risk of Readmission: Low Risk Care Management Discharge Plan Reason for Hospitalization: Sepsis Discharge Plan: Bipin is discharged to the community and is walking a short distance directly to the [facility] for outpatient medication. Bipin will follow up with his PCP, Pascual Del Rio and continue per his discharge plan of care. No new services are ordered at the time of his discharge. Patient/Family Education Needs: Review discharge instructions and plan to follow up after discharge. Discuss ask me three. SDOH Health Related Social Needs: Health related social needs inadequate housing risk of homeless food insecurity material hardship house/econ circumstance lonely/isolated education Health related social needs details IVDU Health related social needs details: IVDU
[2025-06-22] MEDS: Nicotine 21 MG/24 HR PATCH TD (09:05)
[2025-06-22] MEDS: Folic Acid 1 MG TAB PO (09:06)
[2025-06-22] MEDS: Methadone Liquid 10 MG/ML 140 MG PO (09:06)
[2025-06-22] MEDS: Acetaminophen 325 MG TAB PO (09:06)
[2025-06-22] MEDS: Multivitamin w/Minerals TAB 1 TAB PO ×2 (09:06→21:36)
[2025-06-22] MEDS: Lactobacillus Acidophilus CAP 1 CAP PO ×3 (09:06→21:36)
[2025-06-22] MEDS: Normal Saline Flush 10 ML SYR IVP ×3 (09:07→21:36)
--- NOTE | 2025-06-22 09:16 | W.PM.DS.N ---
Date of service: 06/22/25 Time of Service: 17:03 DS: Diagnosis Discharge Diagnosis (1) Endocarditis of tricuspid valve: Status: Acute (2) Abscess in epidural space of L2-L5 lumbar spine: Status: Inactive (3) Severe malnutrition: Status: Acute (4) Tobacco abuse: Status: Acute (5) IV drug abuse: Status: Acute (6) Hep C w/o coma, chronic: Status: Acute Discharge Plan Disposition Patient Disposition: Home Condition: Good Discharge Details Reason For Visit: Sepsis Admit Date/Time: 05/17/25 17:45 Admit Provider: Conrad Art Attending Provider: Conrad Art Primary Care Provider: None,None Hospital Course Hospital Course: 49-year-old male with history of IV drug use, nicotine use disorder, and multiple substance use disorders. Initially seen on 05/07 for acute back pain and polyuria; found to have discitis/osteomyelitis and MSSA bacteremia. Workup at [facility] in [place] confirmed tricuspid valve endocarditis, L4-L5 discitis, and epidura flegmon/ abscessl/ right psoas abscesses. No surgical intervention required as spinal canal not compromised. Hospital Course: Treated with IV antibiotics (Ancef) for 6 weeks, completed 06/22/25. Epidural abscess persists (small, right), psoas abscesses resolved. Multilevel degenerative changes with [id number] L3-L4 foraminal stenosis. 06/19/25 TTE failed to rule in vegetations. The patient is a-febrile and hemodynamically stable and will be discharged home today with follow-up with PCP within 7 to 10 days. Discussion with [place] at [facility] [place] 06/22/2025 recommended follow-up with infectious disease if appropriate. Active Problems: Tricuspid valve endocarditis - 06/19/25 TTE failed to rule in vegetations- (resolved bacteremia s/p 6 weeks IV cefazolin ) L4-L5 discitis with small right epidural abscess- [facility] [place] agreed with discontinuation of antibiotics on 06/22/2025 as per notes from 06/20/2025 History of psoas abscess (resolved) Substance use disorders: IV drugs, fentanyl, cocaine, THC, nicotine Homelessness, lack of insurance, social discharge planning needs Coordinate discharge planning and social support. Discussed with Dr. Mccabe Recommendations for Follow Up Recommended tests to be ordered by follow up provider: Needs an outpatient LAURI as per [facility]. Home Meds and New Rx's Prescriptions: New clonidine HCl 0.1 mg Tablet 0.1 mg PO HS PRN PRNQty: 30 0RF lidocaine 5 % Adhesive Patch,Medicated 2 patch topical Q24H Qty: 10 0RF folic acid 1 mg Tablet 1 mg PO DAILY Qty: 30 0RF One Daily Multi-Vit w-Mineral 4.5 mg iron Tablet 1 tab PO BID Qty: 0 0RF Continued methadone 140 mg PO DAILY Discharge Instructions Instructions: Drug Misuse and Addiction (DC), Opioid use disorder, Polysubstance Use Disorder (DC), Sepsis in adults - Discharge instructions Additional Instructions: Your Medications: Clonidine: Take every day as prescribed. Folic Acid: Take one pill daily. Lidocaine Patch: Apply to the area that hurts, following the instructions. Vitamins: Take your daily vitamins. Other Instructions: Take your medicines exactly as your doctor told you. Watch for any new symptoms like fever, more pain, numbness, or weakness. Keep all follow-up appointments with your doctors. Stay safe at home and ask for help if you need it. These discharge instructions were discussed with patient. Patient verbalized understanding. Referrals: Pascual Del Rio [ NON-[facility] STAFF PHYSICIAN, Medicine] Referral Note: Follow-up within 7-10 days of discharge Activity:: Activity as Tolerated Equipment/Supplies:: No Equipment Needed Diet:: As Tolerated DS: Summary Time Spent with Patient providing and/or coordinating discharge services: Greater than 30 minutes Status at Discharge Functional status at discharge: independent ambulation Overall status at discharge: patient is progressing back to baseline Mental Status: mental status grossly normal Speech and Movement: speech and movement normal Mood: congruent mood Affect: normal affect Quality:SDOH Health Related Social Needs: Health related social needs inadequate housing risk of homeless food insecurity material hardship house/econ circumstance lonely/isolated education Health related social needs details IVDU Health related social needs details: IVDU Exam Narrative Exam Narrative: A&O X4 , no acute distress, moist mucous membranes with improving hollowness to cheeks, neurologically intact, no cauda equina symptoms ; lungs are clear to auscultation , heart is regular rate and rhythm no murmur. Abdomen is non-distended soft non-tender bowel sounds are present, no CVA tenderness, lower extremities are bilaterally equal in strength, sensation and movement . RASS 0, congruent mood and affect, Psych Mental Status: mental status grossly normal Speech and Movement: speech and movement normal Mood: congruent mood Affect: normal affect DS: Data Vitals/I&O Vitals and I&O: Vital Signs Temperature 36.6 C 06/22/25 07:35 Temperature Source Temporal Artery Scan 06/22/25 07:35 Pulse 55 L 06/22/25 07:35 Pulse Rhythm Regular 05/17/25 17:47 Respiratory Rate 17 06/22/25 07:35 Respiratory Effort Normal 05/17/25 17:47 Respiratory Depth Normal 05/17/25 17:47 Respiratory Pattern Normal 05/17/25 17:47 Blood Pressure 136/92 H 06/22/25 07:35 Blood Pressure Mean 106 06/22/25 07:35 Pulse Oximetry 100 06/22/25 07:35 Oxygen Delivery Method Room Air 06/22/25 07:35 Oxygen Flow Rate 0 06/22/25 07:35 Pain Level 0 06/22/25 07:35 Comment pt c/o panic from nightmare. 06/12/25 04:12 Intake & Output 06/21/25 06/21/25 06/22/25 11:59 23:59 11:59 Intake Total 650 / 990 340 / 990 50 / 50 Output Total 300 / 300 Balance 650 / 990 340 / 990 -250 / -250 Weight 66.1 kg 66.4 kg Intake: IV 50 / 150 100 / 150 50 / 50 Oral 600 / 840 240 / 840 Output: Urine 300 / 300 Other: Urine Color Pale Urine Appearance Clear Comment per pt PFSH All Active Problems (Updated 06/08/25 @ 00:02 by CLAUDETTE BAXTER) Severe malnutrition (Acute) Endocarditis of tricuspid valve (Acute) Alcoholic (Acute) Tetrahydrocannabinol (THC) use disorder, moderate, dependence (Acute) Does not have health insurance (Acute) Homeless single person (Acute) Sepsis (Acute) Cellulitis and abscess of upper extremity (Acute) Hep C w/o coma, chronic (Acute) MRSA cellulitis (Acute) Fentanyl use disorder, severe, dependence (Acute) Cocaine abuse (Acute) IV drug abuse (Acute) Tobacco abuse (Acute) Hypomagnesemia (Acute) Leucocytosis (Acute) DVT prophylaxis (Acute) Discharge planning issues (Acute) Medical History (Updated 06/08/25 @ 00:02 by CLAUDETTE BAXTER) OD (overdose of drug) Respiratory failure Suicide attempt Surgical History (Updated 01/17/24 @ 08:20 by Winnie Franco CMA) Status post incision and drainage incision and drainage abscess/excision of brachial vein of antecubital fossa of left arm Social History Smoking/Tobacco Use Status: Current every day Tobacco Type: cigarettes Smoking risk assessment performed?: Yes Alcohol Intake: current Alcohol Intake frequency: holidays/special occasions only Drug use: Daily Substance use type: marijuana, crack/cocaine, heroin and IV drugs Details: last used heroin last night 05/06/25 Housing: other Do you feel safe at home: Yes Do you feel safe in your relationship?: Yes Time Spent with Patient Time Spent with Patient: >85 minutes Time was spent: preparing to see the patient(eg.review tests), obtaining and/or reviewing separately otained hiistory, ordering medications,tests, procedures, referring, communicating with other health respiratory care faculty, indepentently interpreting results, counseling the patient, care coordination and other
--- NOTE | 2025-06-22 11:38 | CMACTNOTE_ITS ---
Date of service: 06/22/25 Time of Service: 11:38 Care Management Activity Note Activity Note Text Activity Note Text: Bipin is scheduled for discharge to the community early tomorrow morning, Wednesday, June 23, 2025, by 9am. He plans to go directly to the [facility] clinic to receive his outpatient medication and will be provided with a last dose letter. The patient declines RCT coordination, stating that he is comfortable walking due to the short distance. Bipin will follow up with his PCP, Pascual Del Rio, and continue per his discharge plan of care. No new services are anticipated to be needed on discharge. He is planning to continue to work with CHW from [facility] on his community needs. Patient expresses appreciation for the care he has received while at [facility], stating that we have made him feel like family.
[2025-06-22] MEDS: Lidocaine 5% Patch 2 PATCH TP (18:22)
[2025-06-22] MEDS: cloNIDine 0.1 MG TAB PO (21:43)
[2025-06-23] MEDS: ceFAZolin 2 GM/50 ML BAG IVPB (05:57)
[2025-06-23] MEDS: Normal Saline Flush 10 ML SYR IVP (05:57)
[2025-06-23] MEDS: Lactobacillus Acidophilus CAP 1 CAP PO (07:47)
[2025-06-23] MEDS: Methadone Liquid 10 MG/ML 140 MG PO (07:47)
[2025-06-23] MEDS: Folic Acid 1 MG TAB PO (07:47)
[2025-06-23] MEDS: Multivitamin w/Minerals TAB 1 TAB PO (07:47)
--- NOTE | 2025-06-23 09:48 | CMDISCH_ITS ---
Date of service: 06/23/25 Time of Service: 10:02 LACE Index Scoring Tool Questions: Length of Stay (in days): 14 or more Was the patient admitted via the E.D.?: Yes E.D. Visits: 3 Answers: Total Score: 13 Risk of Readmission: High Risk Care Management Discharge Plan Reason for Hospitalization: Sepsis Discharge Plan: Prabha discharged to the community this morning with no new services. He planned to go directly to [facility] to coordinate MAT outpatient, which he walked to, due to the short distance; RCT was offered but he declined. He will follow up with his PCP and his discharge plan of care. He was happy with his care at [facility], and he was also happy to be going home after a prolonged hospitalization, both inpatient and swingbed. Patient/Family Education Needs: Review discharge instructions and limitations, discussion of self care needs including ask me three. SDOH Health Related Social Needs: Health related social needs inadequate housing risk of homeless food insecurity material hardship house/econ circumstance lonely/isolated education Health related social needs details IVDU Health related social needs details: IVDU
--- NOTE | 2025-06-28 19:56 | W.PM.PROGNOT ---
Date of Service Date of service: 05/29/25 Time of Service: 09:00 Assessment and Plan Assessment and plan (1) Endocarditis of tricuspid valve: Status: Acute Assessment and plan: Ongoing course of Ancef 2 g Q8 until 06/22/2025 Patient is ambulating - Dustin /GENEVA risk score low - LMWH stopped Ambualtes ad anna in hallway (2) Abscess in epidural space of L2-L5 lumbar spine: Status: Inactive Assessment and plan: Ancef 2 g Q8 until 06/22/2025 ongoing scheduled APAP and PRN Ketorolac for pain As above Trend CMP, CBC , ESR , Mg Imaging s/p antibiotic course recommended - will oder near the end date of the therapy Consider maging PRN S&S of treatment failure, fever (3) Severe malnutrition: Status: Acute Assessment and plan: Ongoing nutrition consultation in the setting of acute illness/injury (pain related to lumbar abscess and endocarditis chest pain) with contributing environmental/social factors (housing instability and chronic substance use). This is identified by a documented >5% wt loss x 2week period that patient confirmed as well as associated reduction in intake by over 50% or more over the last 2 week period. As per nutrition consult: - please read notes and apply recommendations Ongoing MVI with minerals Ongoing milkshake/ supplement TID with meals (4) Tobacco abuse: Status: Acute Assessment and plan: Continue NRT (5) IV drug abuse: Status: Acute Assessment and plan: Noted as per Hx continue daily methodone dosing (6) Hep C w/o coma, chronic: Status: Acute Assessment and plan: No detectable viral load pointing to inactive VS treated Hep C as per discharge notes from [place] discussed with Dr. Cody Subjective Subjective Patient reports: feels better, pain is less, tolerating liquids well, tolerating a regular diet, voiding w/o difficulty and no bowel movement; denies diarrhea, nausea, vomiting, shortness of breath or fever Exam Narrative Exam Narrative: 49 yo thin male patient appearing older than stated age,A&O X4 , no acute distress, moist mucous membranes with ongoing hollow cheeks d/t reduced fat , neurologically intact; unlabored breathing, well perfused, Abdomen is non-acute , RASS 0, congruent mood and affect, anxious at times Objective Last Vital Signs Temp 36.6 C 06/22/25 07:35 Pulse 55 L 06/22/25 07:35 Resp 17 06/22/25 07:35 BP 136/92 H 06/22/25 07:35 Pulse Ox 100 06/22/25 07:35 Time Spent with Patient Time Spent with Patient: >50 minutes Time was spent: preparing to see the patient(eg.review tests), obtaining and/or reviewing separately otained hiistory, ordering medications,tests, procedures, referring, communicating with other health foster care social worker, indepentently interpreting results, counseling the patient, care coordination and other
== END 2025-06-23 08:12 | disposition home or self-care (01) | DRG 94 ==
PROVIDERS: Nurse Practitioner Acute Care; Nurse Practitioner Family; Admitting Provider Hospitalist; Responsible Provider Nurse Practitioner Acute Care; Visit Provider Hospitalist
DX: G06.1 Intraspinal abscess and granuloma (principal); E43 Unspecified severe protein-calorie malnutrition; I33.0 Acute and subacute infective endocarditis; Z59.02 Unsheltered homelessness; F11.20 Opioid dependence, uncomplicated; Z79.2 Long term (current) use of antibiotics; B18.2 Chronic viral hepatitis C; R32 Unspecified urinary incontinence; M46.46 Discitis, unspecified, lumbar region; M48.061 Spinal stenosis, lumbar region without neurogenic claudication; F10.20 Alcohol dependence, uncomplicated; F12.20 Cannabis dependence, uncomplicated; F14.10 Cocaine abuse, uncomplicated; E83.42 Hypomagnesemia; D72.829 Elevated white blood cell count, unspecified; F17.210 Nicotine dependence, cigarettes, uncomplicated; Z68.25 Body mass index [BMI] 25.0-25.9, adult
CPT/HCPCS: 00123; 36415; 72158; 80048; 80053; 85652; 87040; 97110; 97530; 99309; 99316; J1650; 72132; 81003; 82272; 82607; 82746; 83540; 83550; 83735; 85025; 86140; 93306; 99308; 99310; J0690; J1885; J3490